=== PATIENT | male | born 1940 | race African-American/Black ===

== ENCOUNTER 2017-03-22 12:50 | Inpatient (IN) | payer MEDICARE, MEDICAID ==
[2017-03-22 13:27] LABS: #Eosinphils 0.1 thou/uL (0.0-0.7); #Lymphocytes 0.9 thou/uL (1.20-3.40); #Monocytes 0.4 thou/uL (0.11-0.59); #Neutrophils 3.6 thou/uL (1.40-6.50); %Eosinophils 1.1 % (0.0-10.0); %Lymphocytes 17.7 % (21.0-51.0); %Monocytes 8.5 % (0.0-10.0); Hematocrit 30.3 % (42.0-52.0); Mean Platelet Volume 7.2 fL (7.4-10.4); Red Blood Cell (RBC) Count 3.31 mill/uL (4.70-6.10); White Blood Cell (WBC) Count 4.9 thou/uL (4.8-10.8)
[2017-03-22 13:53] LABS: ALT (SGPT) Less than 7 U/L (8-55); AST (SGOT) 13 U/L (5-34); Alkaline Phosphatase 52 U/L (40-150); BUN (Urea Nitrogen) 12 mg/dL (8.4-25.7); Bilirubin, Total 0.5 mg/dL (0.2-1.2); Calc. Creatinine Clearance 0 mL/min (70-130); Calcium 8.6 mg/dL (7.8-10.44); Estimated GFR-MDRD 73; Globulin 4.4 g/dL (2.4-3.5); Protein, Total 7.7 g/dL (5.8-8.1)
[2017-03-22] MEDS ORDERED: Acetaminophen 500 MG TAB ONE (14:02)
[2017-03-22 14:03] LABS: Anion Gap 11 mmol/L (10-20); Carbon Dioxide 25 mmol/L (23-31); Chloride 105 mmol/L (98-107)
[2017-03-22 14:41] LABS: Bilirubin Negative (Negative); Blood, Urine Moderate (Negative); Glucose, Urine (Dipstick) Negative (Negative); Ketone, Urine 15 mg/dL (Negative); Nitrite Negative (Negative); Protein, Urine (Dipstick) 300 mg/dL (Neg-Trace)
[2017-03-22 14:46] LABS: Bacteria/HPF 1+ HPF (None Seen); Hyaline Casts/LPF 4-6 HYALINE CAST LPF (0-3 Hyaline); RBC/HPF 21-50 HPF (0-3); Squamous Epithelial 0-3 HPF (0-3)
--- NOTE | 2017-03-22 15:47 | RAD ---
FRONTAL VIEW CHEST 03/22/17 COMPARISON: 11/05/16 INDICATION: Fever. FINDINGS: No consolidation, effusion or discrete pneumothorax. Cardiomediastinal silhouette is within normal li mits of size for portable technique. IMPRESSION: Stable chest. No lobar consolidation. POS: [facility]
--- NOTE | 2017-03-22 15:55 | CT ---
CT HEAD NONCONTRAST: Date: 03/22/17 INDICATION: Altered mental status. INDICATION: Weakness, HIV. FINDINGS: There is prominence of the ventricular system with parenchyma atrophy. Mild chronic microvascular isc hemic disease is present. There is motion which distorts imaging anatomy, thus limiting assessment. N o intracranial hemorrhage, mass effect, or midline shift. IMPRESSION: No acute intracranial hemorrhage or mass effect. POS: [facility]
[2017-03-22] MEDS ORDERED: Ondansetron HCl/PF 4 MG/2 ML Vial IVP PRN (17:07)
[2017-03-22] MEDS ORDERED: cloNIDine 0.1 MG TAB PO PRN (17:07)
[2017-03-22] MEDS ORDERED: Dextrose 5% in Water 1,000 ML IV PRN (17:07)
[2017-03-22] MEDS ORDERED: Ondansetron ODT 4 MG TAB PO PRN (17:07)
[2017-03-22] MEDS ORDERED: Acetaminophen 325 MG TAB PO PRN (17:07)
[2017-03-22] MEDS ORDERED: hydrALAZINE 20 MG/ML VIAL SLOW IVP PRN (17:07)
[2017-03-22] MEDS ORDERED: Bisacodyl 5 MG TAB PO PRN (17:07)
[2017-03-22] MEDS ORDERED: HumaLOG 300 UNITS/3 ML VIAL SC PRN (17:07)
[2017-03-22 17:13] VITALS: BMI 23.0
[2017-03-22] MEDS: metFORMIN 500 MG TAB PO SCH (17:35)
[2017-03-22] MEDS: Vancomycin HCl 500 MG in Sodium Chloride 0.9% 100 ML IVPB SCH (18:09)
[2017-03-22] MEDS: Docusate 100 MG CAP PO SCH (20:00)
[2017-03-22] MEDS: Famotidine 20 MG TAB PO SCH (20:00)
[2017-03-22] MEDS: Atorvastatin Calcium 10 MG TAB PO SCH (20:00)
[2017-03-22] MEDS: Emtricitabine/Tenofovir 200-300 MG TAB PO SCH (20:00)
[2017-03-22] MEDS: Metoprolol Tartrate 25 MG TAB PO SCH (20:00)
--- NOTE | 2017-03-22 20:39 | HP ---
PRIMARY CARE PHYSICIAN: Christine Landeros M.D. INFECTIOUS DISEASE: Previously Dr. Jara at [facility]. CHIEF COMPLAINT: Altered mental status and fever. HISTORY OF PRESENT ILLNESS: This is a 76-year-old -[place] male with a known history of HIV with previous PJP pneumonia and presumptive Cryptococcus pneumonia, whose most recent CD4 count was 7 4 in 10/2016. He presents when the family brought him in for altered mental status. The family is n o longer available at the bedside and all of my history is taken from the ER physician and the chart as the patient is not able to give any of the history. Family called EMS. They reported that he was having difficulty walking and his lower lip was swelling. It is uncertain exactly how long these sy mptoms have been going on for and the patient denies any of these symptoms when I talked to him in e room. He did have a fever of 102.3 when he arrived to the emergency room though without any tachyc ardia. He is on a beta veronika. The patient knows he is in the hospital in [place], but thinks the ye ar is 3017 and it might be April but he is not certain. PAST MEDICAL HISTORY: All history taken from the chart. 1. 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 2. Diabetes mellitus type 2, on oral hypoglycemics. 3. Hypertension. 4. Hyperlipidemia. 5. Benign prostatic hyperplasia. PAST SURGICAL HISTORY: 1. Foot surgery in the distant past. 2. Left cataract removal with damage to the iris. SOCIAL HISTORY: Patient lives independently in [place], states he has a girlfriend who called the richardu isaiah. Denies alcohol, tobacco or illicit drug use, but he is a former alcoholic and tobacco user. He does receive home health services per his chart. FAMILY HISTORY: Mother with hypertension, father killed at some point in his life, but it is unclear why. ALLERGIES: No known drug allergies. CURRENT MEDICATIONS: Uncertain if the patient is on his previous medications, but his most recent me dication list in the chart shows: 1. Atripla 1 tablet daily. 2. Lipitor 10 mg daily. 3. Diflucan 200 mg daily. 4. Glimepiride 2 mg each morning before breakfast. 5. Lisinopril 20 mg daily. 6. Metoprolol 25 mg twice a day. 7. Bactrim double strength 1 tablet daily. 8. Tamsulosin 0.4 mg daily. 9. Amlodipine 5 mg daily. 10. Metformin 500 mg twice a day. REVIEW OF SYSTEMS: Unable to obtain secondary to patient's confusion, altered mental status. He den ies any symptoms while I did a full 10-point review of systems with him. PHYSICAL EXAMINATION: VITAL SIGNS: Blood pressure 132/71, pulse 69, respirations 22, O2 sat 98% on room air, temperature 1 02.3 on presentation, he has just gotten Tylenol, now it is down to 98.8. GENERAL: This is a well-developed, thin -Mauritanian male in no apparent distress. HEENT: Left pupil with distortion and not reactive. Right pupil round and reactive to light. Extra ocular movements intact. Oropharynx with some candidiasis or some thrush on the palate and anterior tonsillar pillars. His bottom lip is a little bit swollen and cracked massively. NECK: Supple, no lymphadenopathy, no thyroid nodules or enlargement, no JVD. HEART: Regular rate and rhythm, no murmurs, rubs or gallops. LUNGS: Clear to auscultation bilaterally, no wheezes, crackles or rhonchi. ABDOMEN: Soft and nontender to palpation, normoactive bowel sounds, no hepatosplenomegaly or other m asses. EXTREMITIES: No clubbing, cyanosis or edema. SKIN: Without rashes or other lesions. NEUROLOGIC: The patient has no focal neurologic deficits. Negative facial droop. He has intact str ength in bilateral lower extremities: Deep tendon reflexes are equal bilaterally. PSYCHIATRIC: Patient is alert, oriented to person, to town, does not know which hospital this is, an d is not oriented to time. LABORATORY DATA: CBC with a white blood cell count of 4.9 and low lymphocyte count of 17.7% of that 4.9. Complete metabolic panel was notable only for an albumin of 3.3. The remainder is normal. Uri nalysis does show 300 protein and also has moderate leukocyte esterase, 21-50 rbc's and greater than 50 to too numerous to count white blood cells, and 1+ bacteria. Chest x-ray: I did review the chest x-ray done in the emergency room along with the radiologist's report. There are no infiltrates or e vidence of acute cardiopulmonary process going on. CT of the brain shows no acute intracranial hemor rhage or mass effect. There was some motion distorted on the anatomy limiting. ASSESSMENT: 1. Febrile illness with possible sepsis. 2. Urinary tract infection, likely source of #1. The patient was given a dose of Rocephin in the em ergency room given his immunocompromised status, I will also give him a dose of vancomycin as well. Blood and urine cultures are pending. 3. Acquired immune deficiency syndrome with CD4 count below 200 and previous opportunistic infection s. We will resume patient's Bactrim and prophylaxis. We will consult Dr. Beltrán. 4. Thrush secondary to . We will resume patient's Diflucan that he was discharged from the [facility] hospitalization. 5. Gastrointestinal prophylaxis. The patient on Pepcid twice a daily. 6. Deep venous thrombosis prophylaxis. The patient is on sequential compression devices and TEDs. We will hold off on Lovenox as he may need a lumbar puncture. CODE STATUS: The patient is full code. He was unable to give me a next of kin or medical decision natali joe, but in previous admissions, this was listed as Kiesha Luis.
[2017-03-22] MEDS ORDERED: Vancomycin HCl 1 GM in Sodium Chloride 0.9% 250 ML 250 ML IVPB SCH (21:00)
[2017-03-22] MEDS ORDERED: Non-Formulary Item 1 EACH (Efavirenz/Emtricitab/Tenofovir [Atripla] 1 TABLET) PO SCH (21:00)
[2017-03-23] MEDS: Vancomycin HCl 500 MG in Sodium Chloride 0.9% 100 ML IVPB SCH ×2 (05:40→17:14)
[2017-03-23 05:49] LABS: #Eosinphils 0.1 thou/uL (0.0-0.7); #Lymphocytes 0.6 thou/uL (1.20-3.40); #Monocytes 0.5 thou/uL (0.11-0.59); %Eosinophils 2.6 % (0.0-10.0); %Lymphocytes 10.7 % (21.0-51.0); %Monocytes 8.8 % (0.0-10.0); Hematocrit 30.7 % (42.0-52.0); Mean Platelet Volume 7.6 fL (7.4-10.4); Red Blood Cell (RBC) Count 3.35 mill/uL (4.70-6.10); White Blood Cell (WBC) Count 5.1 thou/uL (4.8-10.8)
[2017-03-23 06:18] LABS: Anion Gap 10 mmol/L (10-20); BUN (Urea Nitrogen) 13 mg/dL (8.4-25.7); Calc. Creatinine Clearance 60 mL/min (70-130); Calcium 8.7 mg/dL (7.8-10.44); Carbon Dioxide 27 mmol/L (23-31); Chloride 105 mmol/L (98-107); Estimated GFR-MDRD 80
[2017-03-23] MEDS: Glimepiride 2 MG TAB PO SCH (08:06)
[2017-03-23] MEDS: Lisinopril 20 MG TAB PO SCH (08:06)
[2017-03-23] MEDS: Tamsulosin HCl 0.4 MG CAP PO SCH (08:08)
[2017-03-23] MEDS: Metoprolol Tartrate 25 MG TAB PO SCH ×2 (08:08→20:13)
[2017-03-23] MEDS: metFORMIN 500 MG TAB PO SCH ×2 (08:08→16:43)
[2017-03-23] MEDS: Amlodipine 5 MG TAB PO SCH (08:08)
[2017-03-23] MEDS: Docusate 100 MG CAP PO SCH ×2 (08:08→20:13)
[2017-03-23] MEDS: Famotidine 20 MG TAB PO SCH ×2 (08:08→20:13)
[2017-03-23] MEDS: cefTRIAXone\\ROCEPHIN 2 GM in Sodium Chloride 0.9% 100 ML IVPB SCH (14:28)
--- NOTE | 2017-03-23 15:28 | PDOC.PN ---
- Subjective Encounter Start Date: 03/23/17 Encounter Start Time: 09:40 Subjective: feels better, at bedside -: tolerating oral diet - Objective Resuscitation Status: Resuscitation Status FULL:Full Resuscitation MAR Reviewed: Yes Vital Signs & Weight: Vital Signs (12 hours) Temp Pulse Resp BP BP Pulse Ox 03/23/17 08:08 77 161/83 H 03/23/17 08:06 161/83 H 03/23/17 08:00 98.3 F 77 18 97 03/23/17 07:00 98.3 F 77 18 161/83 H 97 I&O: 03/22/17 03/23/17 03/24/17 06:59 06:59 06:59 Intake Total 480 Balance 480 Result Diagrams: 03/23/17 03:58 03/23/17 03:58 Additional Labs: Accuchecks 03/23/17 03/22/17 11:55 17:31 POC Glucose 84 75 Phys Exam - Physical Examination HEENT: PERRLA, moist MMs Neck: no JVD, supple Respiratory: no wheezing, no rales Cardiovascular: RRR, no significant murmur Gastrointestinal: soft, non-tender, no distention, positive bowel sounds Musculoskeletal: no edema, pulses present Neurological: non-focal, moves all 4 limbs Dx/Plan (1) 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) Code(s): B20 - HUMAN IMMUNODEFICIENCY VIRUS [HIV] DISEASE; A41.9 - SEPSIS, UNSPECIFIED ORGANISM Status: Chronic (2) HTN (hypertension) Code(s): I10 - ESSENTIAL (PRIMARY) HYPERTENSION Status: Chronic Qualifiers: Hypertension type: essential hypertension Qualified Code(s): I10 - Essential (primary) hypertension (3) Dyslipidemia Code(s): E78.5 - HYPERLIPIDEMIA, UNSPECIFIED Status: Chronic (4) Diabetes mellitus Code(s): E11.9 - TYPE 2 DIABETES MELLITUS WITHOUT COMPLICATIONS Status: Chronic Qualifiers: Diabetes mellitus type: type 2 Diabetes mellitus complication status: with unspecified complications Diabetes mellitus fci insulin use: without fci use Qualified Code(s): E11.8 - Type 2 diabetes mellitus with unspecified complications Comment: (5) Chronic anemia Code(s): D64.9 - ANEMIA, UNSPECIFIED Status: Chronic (6) Moderate protein malnutrition Code(s): E44.0 - MODERATE PROTEIN-CALORIE MALNUTRITION Status: Chronic - Plan unclear source -: is on ceftriaxone and vanc -: bactrim, diflucan, truvada and sustiva to continue for his low cd4/home med -: had temp of 99 last 24hrs, await cultures -: has been consulted * . Review of Systems - Medications/Allergies Allergies/Adverse Reactions: Allergies Allergy/AdvReac Type Severity Reaction Status Date / Time No Known Allergies Allergy Verified 03/22/17 17:11 Medications: Current Medications Acetaminophen (Tylenol) 650 mg PO Q4H PRN PRN Reason: Headache/Fever or Pain Amlodipine Besylate (Norvasc) 5 mg PO DAILY [facility] Last Admin: 03/23/17 08:08 Dose: 5 mg Atorvastatin Calcium (Lipitor) 10 mg PO HS [facility] Last Admin: 03/22/17 20:00 Dose: 10 mg Bisacodyl (Dulcolax) 10 mg PO DAILYPRN PRN PRN Reason: Constipation Clonidine (Catapres) 0.1 mg PO Q4H PRN PRN Reason: Systolic BP > 180 Dextrose/Water (Dextrose 50%) 25 gm SLOW IVP PRN PRN PRN Reason: Hypoglycemia Docusate Sodium (Colace) 100 mg PO BID [facility] Last Admin: 03/23/17 08:08 Dose: 100 mg Efavirenz (Sustiva) 600 mg PO 2100 [facility] Last Admin: 03/22/17 19:59 Dose: 600 mg Emtricitabine/Tenofovir (Truvada) 1 tab PO HS [facility] Last Admin: 03/22/17 20:00 Dose: 1 tab Famotidine (Pepcid) 20 mg PO BID [facility] Last Admin: 03/23/17 08:08 Dose: 20 mg Fluconazole (Diflucan) 200 mg PO 1800 [facility] Glimepiride (Amaryl) 2 mg PO QAM-WM [facility] Last Admin: 03/23/17 08:06 Dose: 2 mg Glucagon (Glucagon) 1 mg IM PRN PRN PRN Reason: Hypoglycemia Hydralazine HCl (Apresoline) 10 mg SLOW IVP Q4H PRN PRN Reason: Systolic BP > 180 Ceftriaxone Sodium 2 gm/ (Sodium Chloride) 100 mls @ 200 mls/hr IVPB Q24HR [facility] Last Admin: 03/23/17 14:28 Dose: 100 mls Dextrose/Water (D5w) 1,000 mls @ 0 mls/hr IV .Q0M PRN; As Directed PRN Reason: Hypoglycemia Vancomycin HCl 500 mg/ Sodium (Chloride) 100 mls @ 100 mls/hr IVPB 0600,1800 [facility] Last Admin: 03/23/17 05:40 Dose: 100 mls Insulin Human Lispro (Humalog) 0 units SC .MILD SLIDING SCALE PRN PRN Reason: Mild Correctional Scale Lisinopril (Zestril) 20 mg PO DAILY [facility] Last Admin: 03/23/17 08:06 Dose: 20 mg Metformin HCl (Glucophage) 500 mg PO BID-[facility] Last Admin: 03/23/17 08:08 Dose: 500 mg Metoprolol Tartrate (Lopressor) 25 mg PO BID [facility] Last Admin: 03/23/17 08:08 Dose: 25 mg Ondansetron HCl (Zofran Odt) 4 mg PO Q6H PRN PRN Reason: Nausea/Vomiting Ondansetron HCl (Zofran) 4 mg IVP Q6H PRN PRN Reason: Nausea/Vomiting Tamsulosin HCl (Flomax) 0.4 mg PO DAILY [facility] Last Admin: 03/23/17 08:08 Dose: 0.4 mg Trimethoprim/Sulfamethoxazole (Bactrim Ds) 1 tab PO MoWeFr@0900 [facility]
--- NOTE | 2017-03-23 15:57 | CON ---
DATE OF CONSULTATION: 03/23/2017 REASON FOR CONSULTATION: Altered mental status, HIV infection. HISTORY OF PRESENT ILLNESS: A 76-year-old who has a longstanding history of HIV infection and was ad mitted in October to this hospital with change in mental status and fever. His repeat cryptococcus anti gen then was negative, of note, the prior workup at [facility] they had not shown any positive cry pto antigen in the CSF. He CD4 was 74 and viral load was elevated more than 600,000. The patient wa s discharged on efavirenz, emtricitabine, atorvastatin, Norvasc, clonidine, metformin. He also was s tarted on Bactrim 3 times weekly for prophylaxis against pneumocystis. He was brought back this time with altered mental status. On arrival, the patient was not able to provide history. Apparently, a ccording to the family, he had some difficulty walking, some lip swelling and temperature 102.3. Ini tial findings, BP 130/70, pulse 69, respirations 22, O2 saturation 98%, and temperature 102. Neck, s upple. Regular heart rate and rhythm. Lungs were clear. Abdomen was soft. He moved all extremitie s equally. Initial labs, white cell count 4.9 and 5.1, hemoglobin 9.9, MCV 91, platelets 176, 72% ne utrophils. Chemistry: Sodium 137, creatinine 1.18. AST 13. Albumin 3.3. Urinalysis with greater than 50 wbcs. Two sets of blood cultures, no growth thus far. Currently, Mr. Disla is drowsy, but arousable. He knows he is in the hospital, denied any headaches, n o visual symptoms, has some sore throat, some odynophagia. No cough, pretty good appetite. No abdom inal pain, no genitourinary symptoms, no joint symptoms. PAST MEDICAL HISTORY: HIV infection. Currently on Atripla, but uncontrolled viral load either due t o resistance or noncompliance, type 2 diabetes, hypertension, hyperlipidemia, BPH. PAST SURGICAL HISTORY: Foot surgery and cataract removal. SOCIAL HISTORY: Had been living independently in [place], it is not clear his living situation right n ow and Adult Protective Services may have to be activated, former smoker and used to drink heavily. FAMILY HISTORY: Hypertension. ALLERGIES: None. MEDICATION LIST: In the hospital, ceftriaxone, clonidine, docusate, Colace, Diflucan, insulin, Gluco phage, Bactrim, vancomycin, Sustiva and Truvada. PHYSICAL EXAMINATION: VITAL SIGNS: T-max 99.5, blood pressure 160/80, pulse 77, respirations 18, O2 sat 97%. SKIN: No areas of skin breakdown. Peripheral IV access. No Ramirez catheter, moves all extremities e qually. Oral cavity with florid oral candidiasis. Numerous teeth in place with significant decay an d gum disease. NECK: Supple. No jugular venous distention. HEENT: Pupils are equal and reactive. LUNGS: With symmetric air entry. HEART: S1, S2, regular rate. No crackles or wheezing. ABDOMEN: Soft and not distended or tender. No ascites. No bladder distention. GENITOURINARY: No genital abnormalities. No perianal lesions. EXTREMITIES: No joint inflammatory activity, able to move extremities on command. NEUROLOGIC: Plantar responses are flexor. No clonus. No clubbing, cyanosis or edema. He knows his name and knows where he is, but replies are sluggish, follows commands with some hesitancy. LABORATORY AND X-RAY FINDINGS: The labs have been reviewed above. Brain CT did not show any acute c hanges. Chest x-ray with no infiltrates. ASSESSMENT: Advanced human immunodeficiency virus infection with either poor adherence to antiretrov iral therapy or resistance to the antiretrovirals provided, this is now associated with altered menta l status. DISCUSSION: Living situation is not clear, seems to be living by himself in an Adult Protective Serv ices may have to be activated. At this point, would recommend a spinal fluid evaluation and check HI V genotype and integrase resistance profile with the intention of transitioning him to a different an tiretroviral therapy regimen. Repeat cryptococcus antigen, histoplasma antigen in urine, his last CM V, DNA, PCR was not significantly elevated. Continue Bactrim prophylaxis. The patient will probably have to be placed in a group home since I do not think is able to care for self and will continue to deteriorate if he goes home again like the previous time.
[2017-03-23] MEDS: Fluconazole 100 MG TAB PO SCH (17:14)
[2017-03-23] MEDS: Emtricitabine/Tenofovir 200-300 MG TAB PO SCH (20:13)
[2017-03-23] MEDS: Atorvastatin Calcium 10 MG TAB PO SCH (20:13)
[2017-03-24] MEDS: Dextrose 50% Abboject 50 ML SYRINGE SLOW IVP PRN (05:27)
[2017-03-24 05:58] LABS: Vancomycin, Trough 6.7 ug/mL
[2017-03-24] MEDS ORDERED: Vancomycin HCl 1 GM in Premix Bag 1 BAG IVPB SCH (06:15)
[2017-03-24] MEDS: Vancomycin HCl 500 MG in Sodium Chloride 0.9% 100 ML IVPB SCH (07:49)
[2017-03-24] MEDS: Metoprolol Tartrate 25 MG TAB PO SCH ×2 (10:17→20:57)
[2017-03-24] MEDS: Glimepiride 2 MG TAB PO SCH (10:17)
[2017-03-24] MEDS: metFORMIN 500 MG TAB PO SCH ×2 (10:18→17:36)
[2017-03-24] MEDS: Sulfameth/Trimethoprim DS 800-160mg TAB PO SCH (10:18)
[2017-03-24] MEDS: Amlodipine 5 MG TAB PO SCH (10:18)
[2017-03-24] MEDS: Famotidine 20 MG TAB PO SCH ×2 (10:18→20:58)
[2017-03-24] MEDS: Lisinopril 20 MG TAB PO SCH (10:18)
[2017-03-24] MEDS: Tamsulosin HCl 0.4 MG CAP PO SCH (10:19)
[2017-03-24] MEDS: Docusate 100 MG CAP PO SCH ×2 (10:19→20:56)
--- NOTE | 2017-03-24 11:11 | PDOC.PN ---
- Subjective Encounter Start Date: 03/24/17 Encounter Start Time: 09:15 Subjective: awake, responds well to verbal questions -: was confused last night and had 1:1 sitter -: no sob or weakness in specific extremty - Objective Resuscitation Status: Resuscitation Status FULL:Full Resuscitation MAR Reviewed: Yes Vital Signs & Weight: Vital Signs (12 hours) Temp Pulse Resp BP BP Pulse Ox 03/24/17 10:18 65 145/67 H 03/24/17 08:00 98.0 F 65 18 145/67 H 100 03/24/17 05:51 97.8 F 70 16 122/64 03/24/17 00:19 99.1 F 74 20 125/66 I&O: 03/23/17 03/24/17 03/25/17 06:59 06:59 06:59 Intake Total 1960 Balance 1960 Result Diagrams: 03/23/17 03:58 03/23/17 03:58 Additional Labs: Accuchecks 03/24/17 03/24/17 03/23/17 05:59 05:05 20:25 POC Glucose 169 H 66 L 112 H 03/23/17 03/23/17 03/23/17 16:36 11:55 05:36 POC Glucose 80 84 80 03/22/17 19:50 POC Glucose 95 Phys Exam - Physical Examination HEENT: PERRLA, moist MMs Neck: no JVD, supple Respiratory: no wheezing, no rales Cardiovascular: RRR, no significant murmur Gastrointestinal: soft, non-tender, no distention, positive bowel sounds Musculoskeletal: no edema, pulses present Neurological: non-focal, moves all 4 limbs Dx/Plan (1) 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) Code(s): B20 - HUMAN IMMUNODEFICIENCY VIRUS [HIV] DISEASE; A41.9 - SEPSIS, UNSPECIFIED ORGANISM Status: Chronic (2) HTN (hypertension) Code(s): I10 - ESSENTIAL (PRIMARY) HYPERTENSION Status: Chronic Qualifiers: Hypertension type: essential hypertension Qualified Code(s): I10 - Essential (primary) hypertension (3) Dyslipidemia Code(s): E78.5 - HYPERLIPIDEMIA, UNSPECIFIED Status: Chronic (4) Diabetes mellitus Code(s): E11.9 - TYPE 2 DIABETES MELLITUS WITHOUT COMPLICATIONS Status: Chronic Qualifiers: Diabetes mellitus type: type 2 Diabetes mellitus complication status: with unspecified complications Diabetes mellitus oil heaterman insulin use: without oil heaterman use Qualified Code(s): E11.8 - Type 2 diabetes mellitus with unspecified complications Comment: (5) Chronic anemia Code(s): D64.9 - ANEMIA, UNSPECIFIED Status: Chronic (6) Moderate protein malnutrition Code(s): E44.0 - MODERATE PROTEIN-CALORIE MALNUTRITION Status: Chronic - Plan is going for lumbar puncture by IR -: labs for HIV genotype, integrase resistance, cmv pcr, histo/crypto ag were -: sent yesterday. Had t.max of 99 last 24hrs -: is on ceft and vanc -: on Truvada and sustiva for HIV with fluconazole and bactrim 3/wk * . CM for help with placement. Has dementia with sun downing, not sure he is compliant with meds. Review of Systems - Medications/Allergies Allergies/Adverse Reactions: Allergies Allergy/AdvReac Type Severity Reaction Status Date / Time No Known Allergies Allergy Verified 03/22/17 17:11 Medications: Current Medications Acetaminophen (Tylenol) 650 mg PO Q4H PRN PRN Reason: Headache/Fever or Pain Amlodipine Besylate (Norvasc) 5 mg PO DAILY [facility] Last Admin: 03/24/17 10:18 Dose: 5 mg Atorvastatin Calcium (Lipitor) 10 mg PO HS [facility] Last Admin: 03/23/17 20:13 Dose: 10 mg Bisacodyl (Dulcolax) 10 mg PO DAILYPRN PRN PRN Reason: Constipation Clonidine (Catapres) 0.1 mg PO Q4H PRN PRN Reason: Systolic BP > 180 Dextrose/Water (Dextrose 50%) 25 gm SLOW IVP PRN PRN PRN Reason: Hypoglycemia Last Admin: 03/24/17 05:27 Dose: 25 gm Docusate Sodium (Colace) 100 mg PO BID [facility] Last Admin: 03/24/17 10:19 Dose: 100 mg Efavirenz (Sustiva) 600 mg PO 2100 [facility] Last Admin: 03/23/17 20:14 Dose: 600 mg Emtricitabine/Tenofovir (Truvada) 1 tab PO HS [facility] Last Admin: 03/23/17 20:13 Dose: 1 tab Famotidine (Pepcid) 20 mg PO BID [facility] Last Admin: 03/24/17 10:18 Dose: 20 mg Fluconazole (Diflucan) 200 mg PO 1800 [facility] Last Admin: 03/23/17 17:14 Dose: 200 mg Glimepiride (Amaryl) 2 mg PO QAM-[facility] Last Admin: 03/24/17 10:17 Dose: 2 mg Glucagon (Glucagon) 1 mg IM PRN PRN PRN Reason: Hypoglycemia Hydralazine HCl (Apresoline) 10 mg SLOW IVP Q4H PRN PRN Reason: Systolic BP > 180 Ceftriaxone Sodium 2 gm/ (Sodium Chloride) 100 mls @ 200 mls/hr IVPB Q24HR [facility] Last Admin: 03/23/17 14:28 Dose: 100 mls Dextrose/Water (D5w) 1,000 mls @ 0 mls/hr IV .Q0M PRN; As Directed PRN Reason: Hypoglycemia Vancomycin HCl 1 gm/ Device 200 mls @ 200 mls/hr IVPB 0600,1800 [facility] Insulin Human Lispro (Humalog) 0 units SC .MILD SLIDING SCALE PRN PRN Reason: Mild Correctional Scale Lisinopril (Zestril) 20 mg PO DAILY [facility] Last Admin: 03/24/17 10:18 Dose: 20 mg Metformin HCl (Glucophage) 500 mg PO BID-[facility] Last Admin: 03/24/17 10:18 Dose: 500 mg Metoprolol Tartrate (Lopressor) 25 mg PO BID [facility] Last Admin: 03/24/17 10:17 Dose: 25 mg Ondansetron HCl (Zofran Odt) 4 mg PO Q6H PRN PRN Reason: Nausea/Vomiting Ondansetron HCl (Zofran) 4 mg IVP Q6H PRN PRN Reason: Nausea/Vomiting Tamsulosin HCl (Flomax) 0.4 mg PO DAILY [facility] Last Admin: 03/24/17 10:19 Dose: 0.4 mg Trimethoprim/Sulfamethoxazole (Bactrim Ds) 1 tab PO MoWeFr@0900 [facility] Last Admin: 03/24/17 10:18 Dose: 1 tab
--- NOTE | 2017-03-24 12:34 | RAD ---
LUMBAR PUNCTURE WITH FLUOROSCOPY GUIDANCE: 03/24/2017 HISTORY: A 76-year-old male with a history of AIDS, altered mental status, and a history of Cryptococcal menin gitis. COMPARISON: None. FINDINGS: Informed consent was obtained prior to the procedure. The patient was placed on the fluoroscopic table in the oblique prone position, and the skin overlyin g the lumbar spine was prepped and draped in the normal sterile fashion. At the L2-L3 level, the skin was anesthetized with 1% buffered Lidocaine. With intermittent fluorosc opic guidance, a 22 gauge spinal needle was advanced into the thecal sac, and removal of the stylet y ielded clear cerebrospinal fluid. Subsequently, opening pressure was measured at 8-9 cm of water. T hen, a total of 14-15 mL of clear CSF was collected and sent to the laboratory for assessment. The p atient tolerated the procedure well. EXPOSURE DATA: Fluoroscopic time 2.1 minutes with 360.4 mGy per m2. IMPRESSION: Successful lumbar puncture with fluoroscopic guidance. Opening pressure is 8-9 cm of water. POS: [facility]
[2017-03-24] MEDS: cefTRIAXone\\ROCEPHIN 2 GM in Sodium Chloride 0.9% 100 ML IVPB SCH (15:59)
[2017-03-24] MEDS: Fluconazole 100 MG TAB PO SCH (17:36)
[2017-03-24] MEDS: Vancomycin HCl 1 GM in Premix Bag 1 BAG IVPB SCH (17:37)
--- NOTE | 2017-03-24 18:57 | PRG ---
DATE OF SERVICE: 03/24/2017 Mr. Disla is very awake and alert. He is eating his dinner and he has a friend in the room with him an d reportedly the patient stays by himself at home and does not have as much help as he used to in the past. Apparently Dr. Landeros has not signed the document that allows for home health aide to help h im out. He needs help in buying groceries and he uses a walker for locomotion. It is not clear why he developed the abnormalities that were described on admission. Right now he denies any headaches. His throat is much better. He is able to swallow. No respiratory symptoms. No abdominal pain. No diarrhea. Voiding without difficulty. His white cell count is 5.1, hemoglobin 10, platelets 162. The CSF showed 0 WBCs, protein 50, glucos e 53. His Cryptococcus antigen was negative. We have pending genotype and integrase resistance test in preparation for transition to a different regimen. ASSESSMENT AND DISCUSSION: Advanced human immunodeficiency virus infection with poor adherence to an tiretroviral therapy and questionable living conditions and inability to care for self. We will wait on the other opportunistic infection screening and repeat CD4 viral load and start him on Kaletra or Isentress plus Truvada.
[2017-03-24] MEDS: Raltegravir Potassium 400 MG TAB PO SCH (20:57)
[2017-03-24] MEDS: Atorvastatin Calcium 10 MG TAB PO SCH (20:57)
[2017-03-24] MEDS: Lopinavir/Ritonavir 200-50mg TAB PO SCH (20:58)
[2017-03-24] MEDS: Cefepime 2 GM, Syringe 2.5 ML in Sterile Water 10 ML SLOW IVP SCH (20:58)
[2017-03-25] MEDS: Vancomycin HCl 1 GM in Premix Bag 1 BAG IVPB SCH ×2 (05:08→18:13)
[2017-03-25] MEDS: Cefepime 2 GM, Syringe 2.5 ML in Sterile Water 10 ML SLOW IVP SCH ×3 (05:08→22:03)
[2017-03-25] MEDS: Famotidine 20 MG TAB PO SCH ×2 (08:57→19:51)
[2017-03-25] MEDS: Docusate 100 MG CAP PO SCH ×2 (08:57→19:52)
[2017-03-25] MEDS: Amlodipine 5 MG TAB PO SCH (08:57)
[2017-03-25] MEDS: metFORMIN 500 MG TAB PO SCH (08:57)
[2017-03-25] MEDS: Tamsulosin HCl 0.4 MG CAP PO SCH (08:58)
[2017-03-25] MEDS: Raltegravir Potassium 400 MG TAB PO SCH ×2 (08:58→19:51)
[2017-03-25] MEDS: Lopinavir/Ritonavir 200-50mg TAB PO SCH ×2 (08:58→19:51)
[2017-03-25] MEDS: Glimepiride 2 MG TAB PO SCH (08:58)
[2017-03-25] MEDS: Metoprolol Tartrate 25 MG TAB PO SCH ×2 (08:58→19:51)
[2017-03-25] MEDS: Lisinopril 20 MG TAB PO SCH (08:58)
--- NOTE | 2017-03-25 16:22 | PDOC.PN ---
- Subjective Encounter Start Date: 03/25/17 Encounter Start Time: 15:30 Patient seen and examined. No new complaints. No overnight events. Mentation improving. - Objective Resuscitation Status: Resuscitation Status FULL:Full Resuscitation MAR Reviewed: Yes Vital Signs & Weight: Vital Signs (12 hours) Temp Pulse Resp BP BP Pulse Ox 03/25/17 11:43 97.8 F 68 14 132/77 100 03/25/17 08:57 93 03/25/17 08:00 97.7 F 93 16 144/75 H 100 03/25/17 05:29 114/72 03/25/17 04:53 98.9 F 92 20 90/44 L 97 I&O: 03/24/17 03/25/17 03/26/17 06:59 06:59 06:59 Intake Total 1960 1140 Output Total 600 Balance 1960 540 Result Diagrams: 03/23/17 03:58 03/23/17 03:58 Additional Labs: Accuchecks 03/25/17 03/24/17 04:39 16:35 POC Glucose 62 L 79 Phys Exam - Physical Examination Constitutional: NAD Respiratory: no wheezing, no rhonchi Cardiovascular: RRR, no rub Gastrointestinal: soft, non-tender, positive bowel sounds Musculoskeletal: no edema Neurological: non-focal, moves all 4 limbs Psychiatric: normal affect Deviation from normal: Alert and awake Dx/Plan - Plan DVT proph w/SCDs IMPRESSION: 1. Toxic Metabolic Encephalopathy - improving 2. Sepsis with acute organ dysfunction associated with HIV - Etio? s/p LP 3. UTI 4. DM2 5. HTN/HLD/BPH/Chronic Anemia/CKD 2 PLAN: * ID following * Await test results * Cont Atbx * AM labs * Ambulate * On Cefepime * On Bactrim/Fluconazole * Cont other meds as below Review of Systems - Review of Systems Respiratory: negative: Cough, Dry, Shortness of Breath, Hemoptysis, SOB with Excertion, Pleuritic Pain, Sputum, Wheezing Cardiovascular: negative: Chest Pain, Palpitations, Orthopnea, Paroxysmal Noc. Dyspnea, Edema, Light Headedness - Medications/Allergies Allergies/Adverse Reactions: Allergies Allergy/AdvReac Type Severity Reaction Status Date / Time No Known Allergies Allergy Verified 03/22/17 17:11 Medications: Current Medications Acetaminophen (Tylenol) 650 mg PO Q4H PRN PRN Reason: Headache/Fever or Pain Amlodipine Besylate (Norvasc) 5 mg PO DAILY [facility] Last Admin: 03/25/17 08:57 Dose: 5 mg Atorvastatin Calcium (Lipitor) 10 mg PO HS [facility] Last Admin: 03/24/17 20:57 Dose: 10 mg Bisacodyl (Dulcolax) 10 mg PO DAILYPRN PRN PRN Reason: Constipation Clonidine (Catapres) 0.1 mg PO Q4H PRN PRN Reason: Systolic BP > 180 Dextrose/Water (Dextrose 50%) 25 gm SLOW IVP PRN PRN PRN Reason: Hypoglycemia Last Admin: 03/24/17 05:27 Dose: 25 gm Docusate Sodium (Colace) 100 mg PO BID [facility] Last Admin: 03/25/17 08:57 Dose: 100 mg Famotidine (Pepcid) 20 mg PO BID [facility] Last Admin: 03/25/17 08:57 Dose: 20 mg Fluconazole (Diflucan) 200 mg PO 1800 [facility] Last Admin: 03/24/17 17:36 Dose: 200 mg Glimepiride (Amaryl) 2 mg PO QAM-WM [facility] Last Admin: 03/25/17 08:58 Dose: 2 mg Glucagon (Glucagon) 1 mg IM PRN PRN PRN Reason: Hypoglycemia Hydralazine HCl (Apresoline) 10 mg SLOW IVP Q4H PRN PRN Reason: Systolic BP > 180 Dextrose/Water (D5w) 1,000 mls @ 0 mls/hr IV .Q0M PRN; As Directed PRN Reason: Hypoglycemia Vancomycin HCl 1 gm/ Device 200 mls @ 200 mls/hr IVPB 0600,1800 [facility] Last Admin: 03/25/17 05:08 Dose: 200 mls Cefepime HCl 2 gm/ Syringe 2.5 (ml/ Sterile Water) 12.5 mls @ 150 mls/hr SLOW IVP Q8HR [facility] Last Admin: 03/25/17 14:02 Dose: 12.5 mls Insulin Human Lispro (Humalog) 0 units SC .MILD SLIDING SCALE PRN PRN Reason: Mild Correctional Scale Lisinopril (Zestril) 20 mg PO DAILY [facility] Last Admin: 03/25/17 08:58 Dose: 20 mg Lopinavir/Ritonavir (Kaletra) 2 tab PO BID [facility] Last Admin: 12/12/17 08:58 Dose: 2 tab Metformin HCl (Glucophage) 500 mg PO BID-WM [facility] Last Admin: 03/25/17 08:57 Dose: 500 mg Metoprolol Tartrate (Lopressor) 25 mg PO BID [facility] Last Admin: 03/25/17 08:58 Dose: 25 mg Ondansetron HCl (Zofran Odt) 4 mg PO Q6H PRN PRN Reason: Nausea/Vomiting Ondansetron HCl (Zofran) 4 mg IVP Q6H PRN PRN Reason: Nausea/Vomiting Raltegravir (Isentress) 400 mg PO BID [facility] Last Admin: 03/25/17 08:58 Dose: 400 mg Tamsulosin HCl (Flomax) 0.4 mg PO DAILY [facility] Last Admin: 03/25/17 08:58 Dose: 0.4 mg Trimethoprim/Sulfamethoxazole (Bactrim Ds) 1 tab PO MoWeFr@0900 [facility] Last Admin: 03/24/17 10:18 Dose: 1 tab
[2017-03-25] MEDS: Fluconazole 100 MG TAB PO SCH (18:14)
[2017-03-25] MEDS: Atorvastatin Calcium 10 MG TAB PO SCH (19:52)
[2017-03-26] MEDS: Cefepime 2 GM, Syringe 2.5 ML in Sterile Water 10 ML SLOW IVP SCH ×3 (06:13→22:03)
[2017-03-26 06:22] LABS: #Eosinphils 0.1 thou/uL (0.0-0.7); #Lymphocytes 0.6 thou/uL (1.20-3.40); #Monocytes 0.4 thou/uL (0.11-0.59); #Neutrophils 4.4 thou/uL (1.40-6.50); %Eosinophils 2.6 % (0.0-10.0); %Lymphocytes 10.1 % (21.0-51.0); %Monocytes 7.1 % (0.0-10.0); Hematocrit 29.3 % (42.0-52.0); Mean Platelet Volume 7.3 fL (7.4-10.4); Red Blood Cell (RBC) Count 3.24 mill/uL (4.70-6.10); White Blood Cell (WBC) Count 5.4 thou/uL (4.8-10.8)
[2017-03-26 06:25] LABS: Vancomycin, Trough 22.6 ug/mL
[2017-03-26 06:27] LABS: Anion Gap 10 mmol/L (10-20); BUN (Urea Nitrogen) 16 mg/dL (8.4-25.7); BUN/Creatinine Ratio 11.76; Calc. Creatinine Clearance 48 mL/min (70-130); Carbon Dioxide 24 mmol/L (23-31); Chloride 104 mmol/L (98-107); Estimated GFR-MDRD 62; Magnesium 1.8 mg/dL (1.6-2.6)
[2017-03-26] MEDS ORDERED: Vancomycin HCl 750 MG in Sodium Chloride 0.9% 250 ML 250 ML IVPB SCH ×4 (06:45)
[2017-03-26] MEDS: Vancomycin HCl 1 GM in Premix Bag 1 BAG IVPB SCH (06:51)
[2017-03-26] MEDS: Famotidine 20 MG TAB PO SCH ×2 (09:31→20:52)
[2017-03-26] MEDS: Lisinopril 20 MG TAB PO SCH (09:35)
[2017-03-26] MEDS: Amlodipine 5 MG TAB PO SCH (09:35)
[2017-03-26] MEDS: Metoprolol Tartrate 25 MG TAB PO SCH ×2 (09:35→20:36)
[2017-03-26] MEDS: Tamsulosin HCl 0.4 MG CAP PO SCH (09:36)
[2017-03-26] MEDS: Raltegravir Potassium 400 MG TAB PO SCH ×2 (09:36→20:53)
[2017-03-26] MEDS: Docusate 100 MG CAP PO SCH ×2 (09:36→20:52)
[2017-03-26] MEDS: Lopinavir/Ritonavir 200-50mg TAB PO SCH ×2 (09:37→20:52)
[2017-03-26] MEDS: Sulfameth/Trimethoprim DS 800-160mg TAB PO SCH (09:37)
[2017-03-26] MEDS: Dextrose 50% Abboject 50 ML SYRINGE SLOW IVP PRN ×2 (13:11→20:04)
[2017-03-26 13:27] LABS: Absolute CD4 44 /uL (359-1519); Lymphocytes/Gated Cell Count 0.4 x10E3/uL (0.7-3.1)
[2017-03-26] MEDS: Fluconazole 100 MG TAB PO SCH (18:13)
[2017-03-26] MEDS: Vancomycin HCl 750 MG in Sodium Chloride 0.9% 250 ML 250 ML IVPB SCH (20:43)
[2017-03-26] MEDS: Atorvastatin Calcium 10 MG TAB PO SCH (20:52)
--- NOTE | 2017-03-26 23:50 | PDOC.PN ---
- Subjective Encounter Start Date: 03/26/17 Encounter Start Time: 18:00 Patient seen and examined. Intermittent confusion +. No overnight events - Objective Resuscitation Status: Resuscitation Status FULL:Full Resuscitation MAR Reviewed: Yes Vital Signs & Weight: Vital Signs (12 hours) Temp Pulse Resp BP Pulse Ox 03/26/17 20:00 98.1 F 86 18 118/64 94 L I&O: 03/25/17 03/26/17 03/27/17 06:59 06:59 06:59 Intake Total 1140 560 700 Output Total 600 Balance 540 560 700 Result Diagrams: 03/26/17 05:33 03/27/17 03:46 Additional Labs: Accuchecks 03/26/17 03/26/17 03/26/17 19:50 17:34 14:38 POC Glucose 56 L* 76 120 H 03/26/17 03/26/17 03/26/17 13:08 10:57 04:18 POC Glucose 61 L 62 L 75 Phys Exam - Physical Examination Constitutional: NAD Respiratory: no wheezing, no rhonchi Cardiovascular: RRR, no rub Gastrointestinal: soft, non-tender, positive bowel sounds Dx/Plan - Plan DVT proph w/SCDs IMPRESSION: 1. Toxic Metabolic Encephalopathy - improving 2. Sepsis with acute organ dysfunction associated with HIV - Etio? s/p LP 3. UTI 4. DM2 with hypoglycemia 5. HTN/HLD/BPH/Chronic Anemia/CKD 2 PLAN: * ID following * Cont Atbx * On Cefepime/Vanc * On Bactrim/Fluconazole * Cont other meds as below * Accepted by Rehab * Add IVF due to hypoglycemia Review of Systems - Review of Systems Other: Cannot obtain due to current mentation - Medications/Allergies Allergies/Adverse Reactions: Allergies Allergy/AdvReac Type Severity Reaction Status Date / Time No Known Allergies Allergy Verified 03/22/17 17:11 Medications: Current Medications Acetaminophen (Tylenol) 650 mg PO Q4H PRN PRN Reason: Headache/Fever or Pain Amlodipine Besylate (Norvasc) 5 mg PO DAILY [facility] Last Admin: 03/26/17 09:35 Dose: 5 mg Atorvastatin Calcium (Lipitor) 10 mg PO HS [facility] Last Admin: 03/26/17 20:52 Dose: Not Given Bisacodyl (Dulcolax) 10 mg PO DAILYPRN PRN PRN Reason: Constipation Clonidine (Catapres) 0.1 mg PO Q4H PRN PRN Reason: Systolic BP > 180 Dextrose/Water (Dextrose 50%) 25 gm SLOW IVP PRN PRN PRN Reason: Hypoglycemia Last Admin: 03/26/17 20:04 Dose: 25 gm Docusate Sodium (Colace) 100 mg PO BID [facility] Last Admin: 03/26/17 20:52 Dose: Not Given Famotidine (Pepcid) 20 mg PO BID [facility] Last Admin: 03/26/17 20:52 Dose: Not Given Fluconazole (Diflucan) 200 mg PO 1800 [facility] Last Admin: 03/26/17 18:13 Dose: 200 mg Glucagon (Glucagon) 1 mg IM PRN PRN PRN Reason: Hypoglycemia Hydralazine HCl (Apresoline) 10 mg SLOW IVP Q4H PRN PRN Reason: Systolic BP > 180 Dextrose/Water (D5w) 1,000 mls @ 0 mls/hr IV .Q0M PRN; As Directed PRN Reason: Hypoglycemia Cefepime HCl 2 gm/ Syringe 2.5 (ml/ Sterile Water) 12.5 mls @ 150 mls/hr SLOW IVP Q8HR [facility] Last Admin: 03/26/17 22:03 Dose: 12.5 mls Vancomycin HCl 750 mg/ Sodium (Chloride) 250 mls @ 250 mls/hr IVPB 0600,1800 [facility] Last Admin: 03/26/17 20:43 Dose: 250 mls Dextrose/Sodium Chloride (D5 1/2 Ns) 1,000 mls @ 75 mls/hr IV .[id number] [facility] Insulin Human Lispro (Humalog) 0 units SC .MILD SLIDING SCALE PRN PRN Reason: Mild Correctional Scale Lisinopril (Zestril) 20 mg PO DAILY [facility] Last Admin: 03/26/17 09:35 Dose: 20 mg Lopinavir/Ritonavir (Kaletra) 2 tab PO BID [facility] Last Admin: 03/26/17 20:52 Dose: Not Given Metoprolol Tartrate (Lopressor) 25 mg PO BID [facility] Last Admin: 03/26/17 20:36 Dose: Not Given Ondansetron HCl (Zofran Odt) 4 mg PO Q6H PRN PRN Reason: Nausea/Vomiting Ondansetron HCl (Zofran) 4 mg IVP Q6H PRN PRN Reason: Nausea/Vomiting Raltegravir (Isentress) 400 mg PO BID [facility] Last Admin: 03/26/17 20:53 Dose: Not Given Tamsulosin HCl (Flomax) 0.4 mg PO DAILY [facility] Last Admin: 03/26/17 09:36 Dose: 0.4 mg Trimethoprim/Sulfamethoxazole (Bactrim Ds) 1 tab PO MoWeFr@0900 [facility] Last Admin: 03/26/17 09:37 Dose: 1 tab
[2017-03-27] MEDS: Dextrose 5 %-0.45 % NaCl 1,000 ML IV SCH ×2 (00:12→12:58)
[2017-03-27] MEDS: Dextrose 50% Abboject 50 ML SYRINGE SLOW IVP PRN ×2 (00:38→07:25)
[2017-03-27 05:02] LABS: Anion Gap 7 mmol/L (10-20); BUN (Urea Nitrogen) 15 mg/dL (8.4-25.7); Calc. Creatinine Clearance 50 mL/min (70-130); Calcium 8.7 mg/dL (7.8-10.44); Carbon Dioxide 22 mmol/L (23-31); Chloride 108 mmol/L (98-107); Estimated GFR-MDRD 65
[2017-03-27] MEDS: Cefepime 2 GM, Syringe 2.5 ML in Sterile Water 10 ML SLOW IVP SCH ×2 (06:00→16:02)
[2017-03-27] MEDS: Vancomycin HCl 750 MG in Sodium Chloride 0.9% 250 ML 250 ML IVPB SCH (06:01)
[2017-03-27] MEDS: Raltegravir Potassium 400 MG TAB PO SCH ×2 (09:24→20:18)
[2017-03-27] MEDS: Famotidine 20 MG TAB PO SCH ×2 (09:24→20:19)
[2017-03-27] MEDS: Lisinopril 20 MG TAB PO SCH (09:24)
[2017-03-27] MEDS: Docusate 100 MG CAP PO SCH ×2 (09:24→20:18)
[2017-03-27] MEDS: Tamsulosin HCl 0.4 MG CAP PO SCH (09:24)
[2017-03-27] MEDS: Lopinavir/Ritonavir 200-50mg TAB PO SCH ×2 (09:24→20:18)
[2017-03-27] MEDS: Metoprolol Tartrate 25 MG TAB PO SCH ×2 (09:24→20:20)
[2017-03-27] MEDS: Amlodipine 5 MG TAB PO SCH (09:24)
--- NOTE | 2017-03-27 12:36 | PDOC.PN ---
- Subjective Encounter Start Date: 03/27/17 Encounter Start Time: 09:00 Subjective: awake, responds well to verbal stimuli -: no sob or nausea - Objective Resuscitation Status: Resuscitation Status FULL:Full Resuscitation MAR Reviewed: Yes Vital Signs & Weight: Vital Signs (12 hours) Temp Pulse Resp BP BP Pulse Ox 03/27/17 09:24 84 113/54 L 03/27/17 08:00 97.6 F 84 16 113/54 L 100 I&O: 03/26/17 03/27/17 03/28/17 06:59 06:59 06:59 Intake Total 560 1835 120 Balance 560 1835 120 Result Diagrams: 03/26/17 05:33 03/27/17 03:46 Additional Labs: Accuchecks 03/27/17 03/27/17 03/27/17 07:21 05:14 02:13 POC Glucose 42 L* 74 138 H 03/27/17 03/26/17 03/26/17 00:29 20:42 19:50 POC Glucose 53 L* 168 H 56 L* 03/26/17 03/26/17 03/26/17 17:34 14:38 13:08 POC Glucose 76 120 H 61 L Phys Exam - Physical Examination HEENT: PERRLA, moist MMs Neck: no JVD, supple Respiratory: no wheezing, no rales Cardiovascular: RRR, no significant murmur Gastrointestinal: soft, no distention, positive bowel sounds Musculoskeletal: no edema, pulses present Neurological: non-focal, moves all 4 limbs Dx/Plan (1) 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) Code(s): B20 - HUMAN IMMUNODEFICIENCY VIRUS [HIV] DISEASE; A41.9 - SEPSIS, UNSPECIFIED ORGANISM Status: Chronic (2) HTN (hypertension) Code(s): I10 - ESSENTIAL (PRIMARY) HYPERTENSION Status: Chronic Qualifiers: Hypertension type: essential hypertension Qualified Code(s): I10 - Essential (primary) hypertension (3) Dyslipidemia Code(s): E78.5 - HYPERLIPIDEMIA, UNSPECIFIED Status: Chronic (4) Diabetes mellitus Code(s): E11.9 - TYPE 2 DIABETES MELLITUS WITHOUT COMPLICATIONS Status: Chronic Qualifiers: Diabetes mellitus type: type 2 Diabetes mellitus complication status: with unspecified complications Diabetes mellitus rat exterminator insulin use: without rat exterminator use Qualified Code(s): E11.8 - Type 2 diabetes mellitus with unspecified complications Comment: (5) Chronic anemia Code(s): D64.9 - ANEMIA, UNSPECIFIED Status: Chronic (6) Moderate protein malnutrition Code(s): E44.0 - MODERATE PROTEIN-CALORIE MALNUTRITION Status: Chronic - Plan is on cefepime and vanc -: on d51/2ns, has persistent hypoglycemia -: kaletra and isenstress -: CD4 is 44, on bactrim prophylaxis -: will need rat exterminator care * . Review of Systems - Medications/Allergies Allergies/Adverse Reactions: Allergies Allergy/AdvReac Type Severity Reaction Status Date / Time No Known Allergies Allergy Verified 03/22/17 17:11 Medications: Current Medications Acetaminophen (Tylenol) 650 mg PO Q4H PRN PRN Reason: Headache/Fever or Pain Amlodipine Besylate (Norvasc) 5 mg PO DAILY [facility] Last Admin: 03/27/17 09:24 Dose: 5 mg Atorvastatin Calcium (Lipitor) 10 mg PO HS [facility] Last Admin: 03/26/17 20:52 Dose: Not Given Bisacodyl (Dulcolax) 10 mg PO DAILYPRN PRN PRN Reason: Constipation Clonidine (Catapres) 0.1 mg PO Q4H PRN PRN Reason: Systolic BP > 180 Dextrose/Water (Dextrose 50%) 25 gm SLOW IVP PRN PRN PRN Reason: Hypoglycemia Last Admin: 03/27/17 07:25 Dose: 25 gm Docusate Sodium (Colace) 100 mg PO BID [facility] Last Admin: 03/27/17 09:24 Dose: 100 mg Famotidine (Pepcid) 20 mg PO BID [facility] Last Admin: 03/27/17 09:24 Dose: 20 mg Fluconazole (Diflucan) 200 mg PO 1800 [facility] Last Admin: 03/26/17 18:13 Dose: 200 mg Glucagon (Glucagon) 1 mg IM PRN PRN PRN Reason: Hypoglycemia Hydralazine HCl (Apresoline) 10 mg SLOW IVP Q4H PRN PRN Reason: Systolic BP > 180 Dextrose/Water (D5w) 1,000 mls @ 0 mls/hr IV .Q0M PRN; As Directed PRN Reason: Hypoglycemia Cefepime HCl 2 gm/ Syringe 2.5 (ml/ Sterile Water) 12.5 mls @ 150 mls/hr SLOW IVP Q8HR [facility] Last Admin: 03/27/17 06:00 Dose: 12.5 mls Vancomycin HCl 750 mg/ Sodium (Chloride) 250 mls @ 250 mls/hr IVPB 0600,1800 [facility] Last Admin: 03/27/17 06:01 Dose: 250 mls Dextrose/Sodium Chloride (D5 1/2 Ns) 1,000 mls @ 75 mls/hr IV .[id number] [facility] Last Admin: 03/27/17 00:12 Dose: 1,000 mls Insulin Human Lispro (Humalog) 0 units SC .MILD SLIDING SCALE PRN PRN Reason: Mild Correctional Scale Lisinopril (Zestril) 20 mg PO DAILY [facility] Last Admin: 03/27/17 09:24 Dose: 20 mg Lopinavir/Ritonavir (Kaletra) 2 tab PO BID [facility] Last Admin: 03/27/17 09:24 Dose: 2 tab Metoprolol Tartrate (Lopressor) 25 mg PO BID [facility] Last Admin: 03/27/17 09:24 Dose: 25 mg Ondansetron HCl (Zofran Odt) 4 mg PO Q6H PRN PRN Reason: Nausea/Vomiting Ondansetron HCl (Zofran) 4 mg IVP Q6H PRN PRN Reason: Nausea/Vomiting Raltegravir (Isentress) 400 mg PO BID [facility] Last Admin: 03/27/17 09:24 Dose: 400 mg Sodium Chloride (Flush - Normal Saline) 10 ml IVF Q12HR [facility] Last Admin: 03/27/17 09:25 Dose: 10 ml Sodium Chloride (Flush - Normal Saline) 10 ml IVF PRN PRN PRN Reason: Saline Flush Tamsulosin HCl (Flomax) 0.4 mg PO DAILY [facility] Last Admin: 03/27/17 09:24 Dose: 0.4 mg Trimethoprim/Sulfamethoxazole (Bactrim Ds) 1 tab PO MoWeFr@0900 [facility] Last Admin: 03/26/17 09:37 Dose: 1 tab
[2017-03-27] MEDS ORDERED: ISOVUE-370 76%-LOCM 1 ML ONE (14:03)
--- NOTE | 2017-03-27 15:53 | CT ---
CT ABDOMEN AND PELVIS WITHOUT AND WITH CONTRAST: COMPARISON: 09/02/11. HISTORY: Sepsis or upper abdominal pain. Possible pancreatitis. The patient is HIV positive. TECHNIQUE: Multiple contiguous axial images were obtained in a CT of the abdomen and pelvis without and with IV contrast. Coronal reformats were performed. P.o. contrast was administered. FINDINGS: There is a hypodense mass involving the posterior aspect of the left kidney which contains laminated calcifications. This mass may have slightly increased in size compared to the prior examination but is grossly stable. There is stranding in the perinephric soft tissues with calcifications adjacent t o this mass. This could potentially represent postsurgical or ablative therapy changes. There is a 1.5 cm hypodensity in the liver which likely represents a cyst on the inferior edge of the liver. Th e gallbladder, adrenal glands, spleen, and pancreas are unremarkable. There is a 2.4 cm cyst emanati ng from the lower pole of the right kidney. No free air, free fluid, or stranding changes are seen in the abdomen or pelvis. There are mildly en larged lymph nodes along the lesser curvature of the stomach measuring up to 1.2 cm in size. No retr operitoneal adenopathy is seen. The large and small bowel are unremarkable. The appendix is unremarkable. Degenerative changes are seen in the spine. The visualized inferior thorax and abdominal wall soft t issues are unremarkable. IMPRESSION: 1. Complex left renal mass does not demonstrate significant enhancement and may represent postsurgic al or post-ablative changes. 2. Right renal cyst. 3. Hepatic cyst. 4. No evidence of acute pancreatitis. 5. Mild enlarged lymph nodes along the lesser curvature of the stomach are nonspecific. POS: [facility]
--- NOTE | 2017-03-27 16:54 | PRG ---
DATE OF SERVICE: 03/27/2017 SUBJECTIVE: The patient does not have any complaints. No headaches, no abdominal pain, no dyspnea, no cough, and no genitourinary symptoms. PHYSICAL EXAMINATION: VITAL SIGNS: Temperature max 98.1, blood pressure 113/54, pulse 84, respirations 16. GENERAL: Awake and alert. HEENT: Ocular movements are conjugate. NECK: Supple. LUNGS: With symmetric clear breath sounds. ABDOMEN: Soft, not distended or tender. Ramirez and diaper. LABORATORY DATA: White cell count 5.4, hemoglobin 10, platelets 172. Sodium 132, creatinine 1.3. C D4 cell count 44, CMV was less than 200 copies per mL. The patient had an abdomen and pelvis CT ordered and it showed a complex left renal mass without enha ncement, mildly enlarged lymph nodes along the lesser curvature of the stomach. ASSESSMENT AND DISCUSSION: Advanced human immunodeficiency virus infection with CD4 cell count 44 wi th poor self-care, requirement for probable transfer to skilled unit or chronic senior living. The ab domen CT showed those changes in the kidney and it is like those are residual from prior treatment an d probably we will need to review the past records. Currently on cefepime. We will go ahead and dis continue the vancomycin and cefepime. Continue Bactrim and antiretroviral medication and weekly azit hromycin.
[2017-03-27] MEDS: Fluconazole 100 MG TAB PO SCH (17:33)
[2017-03-27 17:44] LABS: Vancomycin, Trough 24.5 ug/mL
[2017-03-27] MEDS: Atorvastatin Calcium 10 MG TAB PO SCH (20:19)
[2017-03-28] MEDS: Dextrose 5 %-0.45 % NaCl 1,000 ML IV SCH ×2 (01:44→12:19)
[2017-03-28] MEDS: Tamsulosin HCl 0.4 MG CAP PO SCH (08:31)
[2017-03-28] MEDS: Lisinopril 20 MG TAB PO SCH (08:31)
[2017-03-28] MEDS: Sulfameth/Trimethoprim DS 800-160mg TAB PO SCH (08:31)
[2017-03-28] MEDS: Metoprolol Tartrate 25 MG TAB PO SCH (08:32)
[2017-03-28] MEDS: Amlodipine 5 MG TAB PO SCH (08:32)
[2017-03-28] MEDS: Famotidine 20 MG TAB PO SCH (08:32)
[2017-03-28] MEDS: Docusate 100 MG CAP PO SCH (08:32)
[2017-03-28] MEDS: Raltegravir Potassium 400 MG TAB PO SCH (08:33)
[2017-03-28] MEDS: Lopinavir/Ritonavir 200-50mg TAB PO SCH (08:33)
[2017-03-28 12:07] VITALS: BP 97/46; TEMP 98
--- NOTE | 2017-03-28 13:33 | PDOC.PN ---
- Subjective Encounter Start Date: 03/28/17 Encounter Start Time: 09:15 Subjective: is sitting in chair, no sob, feels better -: has amb 300ft with PT - Objective Resuscitation Status: Resuscitation Status FULL:Full Resuscitation MAR Reviewed: Yes Vital Signs & Weight: Vital Signs (12 hours) Temp Pulse Resp BP BP BP Pulse Ox 03/28/17 12:06 98 F 69 16 97/46 L 03/28/17 08:32 58 L 128/76 03/28/17 08:31 128/76 03/28/17 08:00 98.1 F 58 L 16 03/28/17 07:25 98.1 F 58 L 16 128/76 100 03/28/17 03:59 98.0 F 60 16 130/69 100 I&O: 03/27/17 03/28/17 03/29/17 06:59 06:59 06:59 Intake Total 1835 2470 Output Total 550 Balance 1835 1920 Result Diagrams: 03/26/17 05:33 03/27/17 03:46 Additional Labs: Accuchecks 03/28/17 03/28/17 03/28/17 12:06 07:29 04:06 POC Glucose 139 H 91 111 H 03/28/17 03/28/17 03/27/17 03:44 00:14 20:34 POC Glucose 67 L 71 100 03/27/17 03/27/17 03/27/17 16:27 14:58 11:39 POC Glucose 72 73 118 H Phys Exam - Physical Examination HEENT: PERRLA, moist MMs Neck: no JVD, supple Respiratory: no wheezing, no rales Cardiovascular: RRR, no significant murmur Gastrointestinal: soft, non-tender, positive bowel sounds Musculoskeletal: no edema, pulses present Neurological: non-focal, moves all 4 limbs Dx/Plan (1) 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) Code(s): B20 - HUMAN IMMUNODEFICIENCY VIRUS [HIV] DISEASE; A41.9 - SEPSIS, UNSPECIFIED ORGANISM Status: Chronic (2) HTN (hypertension) Code(s): I10 - ESSENTIAL (PRIMARY) HYPERTENSION Status: Chronic Qualifiers: Hypertension type: essential hypertension Qualified Code(s): I10 - Essential (primary) hypertension (3) Dyslipidemia Code(s): E78.5 - HYPERLIPIDEMIA, UNSPECIFIED Status: Chronic (4) Diabetes mellitus Code(s): E11.9 - TYPE 2 DIABETES MELLITUS WITHOUT COMPLICATIONS Status: Chronic Qualifiers: Diabetes mellitus type: type 2 Diabetes mellitus complication status: with unspecified complications Diabetes mellitus emt intermediate insulin use: without emt intermediate use Qualified Code(s): E11.8 - Type 2 diabetes mellitus with unspecified complications Comment: (5) Chronic anemia Code(s): D64.9 - ANEMIA, UNSPECIFIED Status: Chronic (6) Moderate protein malnutrition Code(s): E44.0 - MODERATE PROTEIN-CALORIE MALNUTRITION Status: Chronic - Plan dc plan to rehab today -: hemostable -: on bactrim, azithro for low cd4 prophylaxis -: d/w girlfriend at bedside * .
--- NOTE | 2017-03-28 17:14 | DIS ---
DATE OF ADMISSION: 03/22/2017 DATE OF DISCHARGE: 03/28/2017 DISCHARGE DISPOSITION: To rehabilitation. PRIMARY DISCHARGE DIAGNOSES: Advanced HIV with low CD4 count, sepsis. SECONDARY DISCHARGE DIAGNOSES: Hypertension, dyslipidemia, chronic anemia, moderate protein malnutrition, diabetes mellitus type 2, likely dementia. PROCEDURES DONE DURING HOSPITALIZATION: Chest x-ray done on admission showed no acute infiltrate. CT brain showed no acute intracranial hemorrhage or stroke. Lumbar puncture done by Interventional Radiology on 03/24/2017, showed an opening pressure of 8 and 9 cm of water, had clear CSF. Abdominal and pelvic CAT scan with contrast showed complex left renal mass with no significant enhancement likely postsurgical/post ablative changes. No evidence of acute pancreatitis. There are mildly enlarged lymph nodes along the lesser curvature of the stomach, which were nonspecific. Blood cultures grew Staph epidermidis and presumptive corynebacterium likely contaminants. Influenza A and B were negative for antigens. Cryptococcal antigen was negative in the CSF. White count of 5 on the day of discharge with an H&H of 10 and 29, platelet count is 172. Discharge BUN and creatinine 15 and 1.3, absolute CD4 count is 44. Cytomegalovirus DNA PCR Log10 was not performed as it was less than Log10 international units per mL. CMV DNA UltraQuantitative was positive less than 200. CSF tube #4 was colorless and clear with 0 WBC and 0 RBC, total protein was 50 and CSF glucose was 53 on the sample. DISCHARGE MEDICATIONS: Zithromax 1200 mg once weekly; Bactrim double strength 1 tablet on Friday, Friday, Friday; Flomax 0.4 mg p.o. daily; simvastatin 20 mg p.o. at bedtime; Isentress 400 mg twice daily; Kaletra 2 tablets p.o. twice daily; Lopressor 25 mg twice daily; lisinopril 20 mg daily; Norvasc 5 mg p.o. daily. ALLERGIES: No known drug allergies. INPATIENT CONSULT: Dr. Beltrán for Infectious Disease. DISCHARGE PLAN: The patient to follow up with Dr. Beltrán in 2 weeks and primary care physician in 1 week. BRIEF COURSE DURING HOSPITALIZATION: The patient initially got admitted on the for altered mental state and fever. His last CD4 count was 74 in 10/2016. 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 He had a fever of 102.3 degrees. Based on the above findings and history, the patient was admitted for possible sepsis. He has had consultation with Dr. Beltrán. The patient likely is noncompliant with his medications or his HIV is resistant to current medications. In view of this, his medications were changed to Isentress and Kaletra. His CD4 count was 44 at this time. He is on Zithromax and Bactrim for CD4 prophylaxis. Torres cultures along with CSF analysis has not revealed any active infection as such. He was on broad spectrum IV antibiotics, which has been discontinued for the last 24 hours. He is ambulating around 300 feet with physical therapy. The patient is not fully oriented and has sundowning in the evenings. His family would like to take him home after rehab. They have been counseled adequately to make sure he takes his medications in view of his poorly controlled HIV and protein malnutrition as well. He also needs outpatient dental evaluation as well to make sure he can chew and swallow. He has poor dentition as well. Most of his teeth has fallen off. A total of 35 minutes was spent on discharge plan. Please see a face to face documentation on [facility] for the day of discharge. He is being shortly discharged to inpatient rehabilitation. TERRENCE
[2017-04-02 17:03] LABS: Histoplasma Antigen - Urine Less than 0.5 (<0.5 ng/mL)
--- NOTE | 2017-04-12 14:59 | EKG ---
Test Reason : Blood Pressure : / mmHG Vent. Rate : 073 BPM Atrial Rate : 073 BPM P-R Int : 194 ms QRS Dur : 084 ms QT Int : 408 ms P-R-T Axes : 076 042 074 degrees QTc Int : 449 ms Normal sinus rhythm Normal ECG Confirmed by LEATHA BURLESON D.O. ([id number]), general expeditor JUSTO STEVENS ([id number] on 04/12/2017 2:59:02 PM Referred By: Confirmed By:LEATHA BURLESON D.O.
== END 2017-03-28 13:15 | DRG 974 ==
LOC: ERS 12:50 → T4-A 17:06
PROVIDERS: ADMIT Emergency Medicine; ATTEND Emergency Medicine
PROC: 009U3ZX Drainage of Spinal Canal, Percutaneous Approach, Diagnostic (ICD-10-PCS; principal; 2017-03-24)
PROC: B01B1ZZ Fluoroscopy of Spinal Cord using Low Osmolar Contrast (ICD-10-PCS; 2017-03-24)
DX: B20 Human immunodeficiency virus [HIV] disease (principal); A41.9 Sepsis, unspecified organism; G92 Toxic encephalopathy; R65.20 Severe sepsis without septic shock; F05 Delirium due to known physiological condition; E44.0 Moderate protein-calorie malnutrition; N39.0 Urinary tract infection, site not specified; F02.80 Dementia in other diseases classified elsewhere, unspecified severity, without behavioral disturbance, psychotic disturbance, mood disturbance, and anxiety; Z79.84 Long term (current) use of oral hypoglycemic drugs; E78.5 Hyperlipidemia, unspecified; N40.0 Benign prostatic hyperplasia without lower urinary tract symptoms; F10.21 Alcohol dependence, in remission; Z87.891 Personal history of nicotine dependence; Z79.899 Other long term (current) drug therapy; R59.0 Localized enlarged lymph nodes; D64.9 Anemia, unspecified; Z68.23 Body mass index [BMI] 23.0-23.9, adult; E11.649 Type 2 diabetes mellitus with hypoglycemia without coma; E11.22 Type 2 diabetes mellitus with diabetic chronic kidney disease; I12.9 Hypertensive chronic kidney disease with stage 1 through stage 4 chronic kidney disease, or unspecified chronic kidney disease; N18.2 Chronic kidney disease, stage 2 (mild)
CPT/HCPCS: 36415; 36416; 51701; 62270; 70450; 71010; 74178; 80048; 80053; 80069; 80202; 81003; 81015; 82945; 83735; 84157; 85025; 85048; 86361; 87040; 87149; 87385; 87497; 87899; 89051; 93005; 96374; A4216; G8978-GP-CJ; G8979-GP-CH; G8987-GO-CJ; G8988-GO-CI; J0692; J0696; J3370; J7050

== ENCOUNTER 2017-05-02 21:31 | Emergency (ER) | payer MEDICARE, OTHER ==
[2017-05-02 22:27] LABS: #Eosinphils 0.1 thou/uL (0.0-0.7); #Lymphocytes 0.9 thou/uL (1.20-3.40); #Monocytes 0.5 thou/uL (0.11-0.59); #Neutrophils 4.3 thou/uL (1.40-6.50); %Basophils 0.5 % (0.0-1.0); %Eosinophils 2.1 % (0.0-10.0); %Monocytes 8.2 % (0.0-10.0); %Neutrophils 74.2 % (42.0-75.0); Hemoglobin 8.6 g/dL (14.0-18.0); Mean Corpuscular HGB CONC 32.8 g/dL (32.0-36.0); Mean Corpuscular Hemoglobin 31.2 pg (27.0-31.0); Mean Corpuscular Volume 95.1 fl (80.0-94.0); Mean Platelet Volume 6.8 fL (7.4-10.4); Platelet Count 221 thou/uL (130-400); RBC Distribution Width 14.8 % (11.5-14.5); Red Blood Cell (RBC) Count 2.77 mill/uL (4.70-6.10); White Blood Cell (WBC) Count 5.8 thou/uL (4.8-10.8)
[2017-05-02 22:46] LABS: ALT (SGPT) 10 U/L (8-55); AST (SGOT) 12 U/L (5-34); Albumin 3.2 g/dL (3.4-4.8); Alkaline Phosphatase 88 U/L (40-150); Anion Gap 12 mmol/L (10-20); BUN (Urea Nitrogen) 12 mg/dL (8.4-25.7); Bilirubin, Total 0.4 mg/dL (0.2-1.2); Calc. Creatinine Clearance 0 mL/min (70-130); Calcium 8.6 mg/dL (7.8-10.44); Carbon Dioxide 23 mmol/L (23-31); Chloride 108 mmol/L (98-107); Estimated GFR-MDRD 80; Globulin 4.4 g/dL (2.4-3.5); Glucose 63 mg/dL (83-110); Magnesium 1.7 mg/dL (1.6-2.6); Potassium 3.6 mmol/L (3.5-5.1); Protein, Total 7.6 g/dL (5.8-8.1); Sodium 139 mmol/L (136-145)
[2017-05-02 22:50] LABS: CKMB 1.2 ng/mL (0-6.6); Troponin I Less than 0.010 ng/mL (< 0.028)
== END 2017-05-03 00:26 | disposition home or self-care (01) ==
LOC: ERS 21:31
DX: E11.649 Type 2 diabetes mellitus with hypoglycemia without coma (principal); E46 Unspecified protein-calorie malnutrition; B20 Human immunodeficiency virus [HIV] disease; E78.5 Hyperlipidemia, unspecified; I10 Essential (primary) hypertension; N40.0 Benign prostatic hyperplasia without lower urinary tract symptoms; F31.9 Bipolar disorder, unspecified; Z87.891 Personal history of nicotine dependence; Z79.84 Long term (current) use of oral hypoglycemic drugs; Z79.899 Other long term (current) drug therapy
CPT/HCPCS: 36415; 36416; 80053; 82553; 83605; 83735; 84484; 85025; 99285

== ENCOUNTER 2017-05-05 18:14 | Emergency (ER) | payer MEDICARE, MEDICAID ==
[2017-05-05 19:03] LABS: #Eosinphils 0.2 thou/uL (0.0-0.7); #Lymphocytes 1.1 thou/uL (1.20-3.40); #Monocytes 0.6 thou/uL (0.11-0.59); #Neutrophils 4.5 thou/uL (1.40-6.50); %Basophils 0.5 % (0.0-1.0); %Eosinophils 2.4 % (0.0-10.0); %Lymphocytes 16.8 % (21.0-51.0); %Monocytes 9.9 % (0.0-10.0); %Neutrophils 70.5 % (42.0-75.0); Hemoglobin 8.8 g/dL (14.0-18.0); Mean Corpuscular HGB CONC 32.6 g/dL (32.0-36.0); Mean Corpuscular Volume 94.9 fl (80.0-94.0); Platelet Count 205 thou/uL (130-400); RBC Distribution Width 14.6 % (11.5-14.5); Red Blood Cell (RBC) Count 2.84 mill/uL (4.70-6.10); White Blood Cell (WBC) Count 6.4 thou/uL (4.8-10.8)
[2017-05-05 19:25] LABS: ALT (SGPT) 10 U/L (8-55); AST (SGOT) 16 U/L (5-34); Albumin 3.3 g/dL (3.4-4.8); Alkaline Phosphatase 81 U/L (40-150); Anion Gap 10 mmol/L (10-20); BUN (Urea Nitrogen) 10 mg/dL (8.4-25.7); Bilirubin, Total 0.5 mg/dL (0.2-1.2); Calc. Creatinine Clearance 0 mL/min (70-130); Calcium 8.5 mg/dL (7.8-10.44); Carbon Dioxide 23 mmol/L (23-31); Chloride 107 mmol/L (98-107); Estimated GFR-MDRD 89; Globulin 4.4 g/dL (2.4-3.5); Glucose 99 mg/dL (83-110); Potassium 3.2 mmol/L (3.5-5.1); Protein, Total 7.7 g/dL (5.8-8.1); Sodium 137 mmol/L (136-145)
[2017-05-05 19:29] LABS: CKMB 1.7 ng/mL (0-6.6); Troponin I 0.014 ng/mL (< 0.028)
--- NOTE | 2017-05-05 20:27 | RAD ---
PORTABLE CHEST: Date: 05-05-17 Provided Clinical History: Cough. FINDINGS: Comparison 03-22-17 Cardiac and mediastinal silhouette is within normal limits. No focal consolidation, pleural fluid or pneumothorax apparent. IMPRESSION: No evidence for an acute cardiopulmonary process. POS: [facility]
--- NOTE | 2017-05-05 20:36 | CT ---
CT BRAIN: Date: 05-05-17 Provided Clinical History: Trauma. FINDINGS: Comparison is made with 03-22-17. The ventricular system appears normal in size and morphology. There is no evidence for intracranial h emorrhage or mass effect. The extracranial soft tissues and osseous structures demonstrate no acute a bnormality. IMPRESSION: No evidence for intracranial hemorrhage or mass effect. POS: [facility]
[2017-05-05] MEDS ORDERED: Potassium Chloride 20 MEQ TAB ONE (20:44)
[2017-05-05 20:55] LABS: Bilirubin Negative (Negative); Blood, Urine Negative (Negative); Clarity CLOUDY (Clear); Glucose, Urine (Dipstick) Negative (Negative); Leukocyte Negative (Negative); Nitrite Negative (Negative); Protein, Urine (Dipstick) 100 mg/dL (Neg-Trace); Specific Gravity, Urine 1.016 (1.002-1.036)
[2017-05-05 20:57] LABS: Bacteria/HPF None Seen HPF (None Seen); Hyaline Casts/LPF 0-3 HYALINE CAST LPF (0-3 Hyaline); Pathc Cast-AUWi Flag 0.13 (0-2.49); RBC/HPF 0-3 HPF (0-3); Squamous Epithelial 0-3 HPF (0-3); WBC/HPF 0-3 HPF (0-3)
== END 2017-05-05 23:25 | disposition home or self-care (01) ==
LOC: ERS 18:14
DX: E11.649 Type 2 diabetes mellitus with hypoglycemia without coma (principal); E78.5 Hyperlipidemia, unspecified; I10 Essential (primary) hypertension; F31.9 Bipolar disorder, unspecified; B20 Human immunodeficiency virus [HIV] disease; Z79.899 Other long term (current) drug therapy; Z79.84 Long term (current) use of oral hypoglycemic drugs; Z87.891 Personal history of nicotine dependence
CPT/HCPCS: 36415; 36416; 70450; 71045; 80053; 81003; 81015; 82553; 84484; 85025; 93005

== ENCOUNTER 2017-11-03 16:38 | Inpatient (IN) | payer MEDICARE, MEDICAID ==
[2017-11-03 16:57] LABS: #Eosinphils 0.2 thou/uL (0.0-0.7); #Lymphocytes 2.4 thou/uL (1.20-3.40); #Monocytes 0.5 thou/uL (0.11-0.59); #Neutrophils 2.8 thou/uL (1.40-6.50); %Basophils 0.4 % (0.0-1.0); %Eosinophils 3.8 % (0.0-10.0); %Lymphocytes 40.7 % (21.0-51.0); %Monocytes 7.8 % (0.0-10.0); %Neutrophils 47.4 % (42.0-75.0); Hemoglobin 11.2 g/dL (14.0-18.0); Mean Corpuscular HGB CONC 35.2 g/dL (32.0-36.0); Mean Corpuscular Hemoglobin 31.5 pg (27.0-31.0); Mean Corpuscular Volume 89.6 fL (78.0-98.0); Mean Platelet Volume 6.7 fL (7.4-10.4); Platelet Count 188 thou/uL (130-400); RBC Distribution Width 12.9 % (11.5-14.5); Red Blood Cell (RBC) Count 3.56 mill/uL (4.70-6.10); White Blood Cell (WBC) Count 5.9 thou/uL (4.8-10.8)
[2017-11-03 17:03] LABS: INR-International Normal Ratio 1.1; PTT 27.8 SEC (22.9-36.1); Prothrombin Time 13.9 SEC (12.0-14.7)
[2017-11-03 17:13] LABS: CKMB 4.4 ng/mL (0-6.6); Troponin I Less than 0.010 ng/mL (< 0.028)
[2017-11-03 17:20] LABS: Acetaminophen Less than 6.0 mcg/mL (10.0-30.0); Alcohol Less than 10 mg/dL (Less than 10); Salicylate Less than 8.0 mg/dL (15.0-30.0)
[2017-11-03 17:22] LABS: ALT (SGPT) 9 U/L (8-55); AST (SGOT) 23 U/L (5-34); Albumin 3.8 g/dL (3.4-4.8); Alkaline Phosphatase 72 U/L (40-150); Anion Gap 13 mmol/L (10-20); BUN (Urea Nitrogen) 9 mg/dL (8.4-25.7); Bilirubin, Total 0.4 mg/dL (0.2-1.2); Calc. Creatinine Clearance 0 mL/min (70-130); Calcium 8.6 mg/dL (7.8-10.44); Carbon Dioxide 20 mmol/L (23-31); Chloride 109 mmol/L (98-107); Estimated GFR-MDRD 64; Globulin 4.6 g/dL (2.4-3.5); Glucose 97 mg/dL (83-110); Potassium 3.4 mmol/L (3.5-5.1); Protein, Total 8.4 g/dL (5.8-8.1); Sodium 139 mmol/L (136-145)
[2017-11-03] MEDS ORDERED: Adacel (T-DAP) 0.5 ML VIAL ONE (17:34)
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
[2017-11-03 17:36] LABS: Bilirubin Negative (Negative); Blood, Urine Trace (Negative); Clarity CLEAR (Clear); Glucose, Urine (Dipstick) Negative (Negative); Leukocyte Trace (Negative); Nitrite Negative (Negative); Protein, Urine (Dipstick) 100 mg/dL (Neg-Trace); Specific Gravity, Urine 1.021 (1.002-1.036); pH, Urine 6.5 (5.0-9.0)
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
[2017-11-03 17:39] LABS: Bacteria/HPF None Seen HPF (None Seen); Hyaline Casts/LPF 0-3 HYALINE CAST LPF (0-3 Hyaline); RBC/HPF 0-3 HPF (0-3); Squamous Epithelial 0-3 HPF (0-3); WBC/HPF 0-3 HPF (0-3)
--- NOTE | 2017-11-03 17:42 | CT ---
CHEST CT WITH CONTRAST: ABDOMEN CT WITH CONTRAST: PELVIS CT WITH CONTRAST: LIMITED CT OF THE THORACIC AND LUMBAR SPINE: FINDINGS: CHEST: No mediastinal mass or hematoma. Upper normal right paratracheal and axillary lymph nodes. No hilar lymphadenopathy. The heart size is normal. No pericardial effusion. The visualized aorta has an overall normal caliber. No paraaortic fat stranding. The trachea and central bronchi are patent. Dependent atelectatic changes. No consolidation or mass es. No pneumothorax. ABDOMEN: Intrahepatic and extrahepatic portal veins are patent. No fluid in the Sanchez pouch. Th e liver, spleen, pancreas, and adrenal glands have appropriate enhancement. Symmetric enhancement of the kidneys. Redemonstration of a calcified mass in the mid to lower pole l eft kidney, measuring 2.4 x 2.8 cm. Hypodensity in the lower pole of the right kidney, measuring 1.7 x 1.9 cm. Both lesions are unchanged from the examination from 09/02/2011. Symmetric attenuation of the psoas muscles. No gastrohepatic, retrocrural, or periportal lymphadenopathy. There are scattered nonspecific, nonenlarged mesenteric lymph nodes. No mass, free air, or free flui d. Limited evaluation of the alimentary canal by lack of oral contrast. The gastric mucosa, the duodenu m, and multiple normal caliber small bowel loops are identified. The ileocecal junction is normal. Normal caliber appendix. Scattered fecal material in a nondistended, nondilated colon. PELVIS: No mass, lymphadenopathy, free air, or free fluid. The urinary bladder is unremarkable. The bony thorax is unremarkable. The bony pelvis is unremarkable. THORACIC AND LUMBAR SPINE: Vertebral body heights are maintained. No fracture or malalignment. Vac uum disk phenomenon is noted. IMPRESSION: No post traumatic sequelae in the chest, abdomen, or pelvis. The results of the study were discussed with Dr. Andersen in 11/03/2017 at 5:19 p.m. CODE CR POS: [facility]
[2017-11-03 17:47] LABS: Amphetamine Not Detected (NotDetected); Barbiturates Screen Not Detected (NotDetected); Benzodiazepine Screen Not Detected (NotDetected); Cocaine Metabolite Screen Not Detected (NotDetected); Medtox Control Line Valid? VALID (VALID); Medtox Reader # READER 4; Methadone Not Detected (NotDetected); Methamphetamine Not Detected (NotDetected); Opiate Screen Not Detected (NotDetected); Oxycodone Screen Not Detected (NotDetected); Phencyclidine (PCP) Not Detected (NotDetected); THC/Cannabinoid Screen Not Detected (NotDetected); Tricyclic Screen Not Detected (NotDetected)
[2017-11-03] MEDS ORDERED: hydrALAZINE 20 MG/ML VIAL ONE (17:52)
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
[2017-11-03] MEDS ORDERED: Labetalol HCl 100 MG/20 ML VIAL ONE ×2 (18:40→21:31)
[2017-11-03] MEDS ORDERED: Acetaminophen 325 MG TAB PO PRN (19:57)
[2017-11-03] MEDS ORDERED: Lorazepam 2 MG/ML VIAL SLOW IVP PRN (19:57)
[2017-11-03 20:01] LABS: Troponin I Less than 0.010 ng/mL (< 0.028)
[2017-11-03] MEDS ORDERED: Dextrose 50% Abboject 50 ML SYRINGE SLOW IVP PRN (20:10)
[2017-11-03] MEDS ORDERED: HumaLOG 300 UNITS/3 ML VIAL SC PRN (20:10)
[2017-11-03] MEDS ORDERED: Dextrose 5% in Water 1,000 ML IV PRN (20:10)
[2017-11-03] MEDS ORDERED: Insulin Regular 300 UNITS/3 ML VIAL SC PRN (20:10)
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
[2017-11-03] MEDS ORDERED: Simvastatin 20 MG TAB PO SCH (21:00)
[2017-11-03 22:31] VITALS: BMI 24.7
[2017-11-03 23:08] LABS: Troponin I 0.013 ng/mL (< 0.028)
[2017-11-03 23:54] LABS: Hemoglobin 12.7 g/dL (14.0-18.0)
[2017-11-04] MEDS: Raltegravir Potassium 400 MG TAB PO SCH ×2 (00:01→10:45)
[2017-11-04] MEDS: Lopinavir/Ritonavir 200-50mg TAB PO SCH ×2 (00:02→10:45)
[2017-11-04] MEDS: Metoprolol Tartrate 25 MG TAB PO SCH ×2 (00:02→09:44)
[2017-11-04] MEDS: Ondansetron HCl/PF 4 MG/2 ML Vial IVP PRN ×2 (00:03→09:47)
[2017-11-04 05:30] LABS: Hemoglobin 12.1 g/dL (14.0-18.0)
[2017-11-04 05:35] LABS: #Lymphocytes 1.1 thou/uL (1.20-3.40); #Monocytes 0.5 thou/uL (0.11-0.59); #Neutrophils 5.2 thou/uL (1.40-6.50); %Basophils 0.7 % (0.0-1.0); %Eosinophils 0.1 % (0.0-10.0); %Lymphocytes 15.8 % (21.0-51.0); %Monocytes 7.2 % (0.0-10.0); %Neutrophils 76.2 % (42.0-75.0); Mean Corpuscular HGB CONC 32.4 g/dL (32.0-36.0); Mean Corpuscular Hemoglobin 29.3 pg (27.0-31.0); Mean Corpuscular Volume 90.3 fL (78.0-98.0); Mean Platelet Volume 7.2 fL (7.4-10.4); Platelet Count 209 thou/uL (130-400); RBC Distribution Width 12.9 % (11.5-14.5); Red Blood Cell (RBC) Count 4.11 mill/uL (4.70-6.10); White Blood Cell (WBC) Count 6.8 thou/uL (4.8-10.8)
[2017-11-04] MEDS: Sodium Chloride 0.9% 1,000 ML IV SCH ×2 (05:44→16:52)
[2017-11-04 06:08] LABS: Anion Gap 15 mmol/L (10-20); BUN (Urea Nitrogen) 8 mg/dL (8.4-25.7); Calc. Creatinine Clearance 56 mL/min (70-130); Calcium 9.2 mg/dL (7.8-10.44); Carbon Dioxide 23 mmol/L (23-31); Chloride 103 mmol/L (98-107); Estimated GFR-MDRD 69; Glucose 176 mg/dL (83-110); Potassium 3.6 mmol/L (3.5-5.1); Sodium 137 mmol/L (136-145)
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
[2017-11-04] MEDS ORDERED: Amlodipine 5 MG TAB PO SCH (09:00)
[2017-11-04] MEDS ORDERED: Enoxaparin Sodium 40 MG/0.4 ML SYRINGE SC SCH (09:00)
[2017-11-04] MEDS ORDERED: Azithromycin 200 MG/5 ML Oral Suspension PO SCH (09:00)
[2017-11-04] MEDS ORDERED: Lisinopril 20 MG TAB PO SCH (09:00)
[2017-11-04] MEDS ORDERED: Tamsulosin HCl 0.4 MG CAP PO SCH (09:00)
[2017-11-04] MEDS ORDERED: Prevnar 13-Val Conj/PF 0.5 ML SYRINGE IM ONE (09:00)
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
[2017-11-04 12:06] LABS: Hemoglobin 11.4 g/dL (14.0-18.0)
[2017-11-04 15:45] VITALS: BP 157/80; TEMP 97.5
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
[2017-11-05] MEDS ORDERED: Sulfameth/Trimethoprim DS 800-160mg TAB PO SCH (09:00)
== END 2017-11-04 16:38 | disposition home or self-care (01) | DRG 88 ==
LOC: ERS 16:38 → 2SE 21:47
PROVIDERS: ADMIT Internal Medicine Infectious Disease; ATTEND Internal Medicine Infectious Disease
DX: S06.0X0A Concussion without loss of consciousness, initial encounter (principal); G93.40 Encephalopathy, unspecified; N17.9 Acute kidney failure, unspecified; E87.6 Hypokalemia; Z21 Asymptomatic human immunodeficiency virus [HIV] infection status; I10 Essential (primary) hypertension; I16.0 Hypertensive urgency; E11.9 Type 2 diabetes mellitus without complications; E78.5 Hyperlipidemia, unspecified; F31.9 Bipolar disorder, unspecified; Z87.891 Personal history of nicotine dependence; Z79.84 Long term (current) use of oral hypoglycemic drugs; Z79.899 Other long term (current) drug therapy; V89.2XXA Person injured in unspecified motor-vehicle accident, traffic, initial encounter
CPT/HCPCS: 36415; 36416; 70450; 71045; 71260; 72125; 72170; 74177; 80048; 80053; 80306; 80307; 81003; 81015; 82140; 82553; 84484; 85025; 85610; 85730; 86850; 86900; 86901; 90471; 90670; 90715; 93005; 96374; 96375; 96376; G0009; G0390; J0360; J2405

== ENCOUNTER 2018-07-28 21:52 | Observation (INO) | payer MEDICARE, MEDICAID ==
[2018-07-28 22:26] LABS: #Lymphocytes 0.5 thou/uL (1.20-3.40); #Monocytes 0.4 thou/uL (0.11-0.59); #Neutrophils 3.8 thou/uL (1.40-6.50); %Basophils 0.2 % (0.0-1.0); %Eosinophils 0.3 % (0.0-10.0); %Lymphocytes 11.4 % (21.0-51.0); %Monocytes 8.6 % (0.0-10.0); %Neutrophils 79.5 % (42.0-75.0); Hemoglobin 11.1 g/dL (14.0-18.0); Mean Corpuscular HGB CONC 33.3 g/dL (32.0-36.0); Mean Corpuscular Hemoglobin 30.6 pg (27.0-31.0); Mean Platelet Volume 7.4 fL (7.4-10.4); Platelet Count 160 thou/uL (130-400); RBC Distribution Width 11.6 % (11.5-14.5); Red Blood Cell (RBC) Count 3.62 mill/uL (4.70-6.10); White Blood Cell (WBC) Count 4.8 thou/uL (4.8-10.8)
--- NOTE | 2018-07-28 22:39 | RAD ---
PORTABLE SUPINE CHEST: 07/28/18 HISTORY: Altered mental status. Heart size and mediastinum are within normal limits considering supine technique. The lungs are clear of any infiltrative process. No acute bony findings. IMPRESSION: No active intrathoracic disease. POS: [facility]
[2018-07-28 22:47] LABS: Acetaminophen Less than 6.0 mcg/mL (10.0-30.0); Alcohol Less than 10 mg/dL (Less than 10); Salicylate Less than 8.0 mg/dL (15.0-30.0)
[2018-07-28 22:49] LABS: ALT (SGPT) 8 U/L (8-55); AST (SGOT) 14 U/L (5-34); Albumin 3.5 g/dL (3.4-4.8); Alkaline Phosphatase 59 U/L (40-150); Anion Gap 12 mmol/L (10-20); BUN (Urea Nitrogen) 28 mg/dL (8.4-25.7); Bilirubin, Total 0.5 mg/dL (0.2-1.2); CK (CPK) 205 U/L (30-200); Calc. Creatinine Clearance 0 mL/min (70-130); Calcium 8.9 mg/dL (7.8-10.44); Carbon Dioxide 23 mmol/L (23-31); Chloride 106 mmol/L (98-107); Estimated GFR-MDRD 44; Globulin 4.8 g/dL (2.4-3.5); Glucose 151 mg/dL (83-110); Lipase 24 U/L (8-78); Potassium 4.5 mmol/L (3.5-5.1); Protein, Total 8.3 g/dL (5.8-8.1); Sodium 136 mmol/L (136-145)
--- NOTE | 2018-07-28 22:55 | CT ---
BRAIN CT WITHOUT IV CONTRAST: 07/28/18 HISTORY: Altered mental status. COMPARISON: 11/03/17. FINDINGS: There is some scattered atrophy and chronic white matter ischemic change. No focal mass or midline sh ift. Sinuses and mastoids are clear of acute process. IMPRESSION: No significant acute intracranial process. No mass or bleed. POS: [facility]
[2018-07-29 00:02] LABS: Amphetamine Not Detected (NotDetected); Barbiturates Screen Not Detected (NotDetected); Benzodiazepine Screen Not Detected (NotDetected); Cocaine Metabolite Screen Not Detected (NotDetected); Medtox Control Line Valid? VALID (VALID); Medtox Reader # READER 4; Methadone Not Detected (NotDetected); Methamphetamine Not Detected (NotDetected); Opiate Screen Not Detected (NotDetected); Oxycodone Screen Not Detected (NotDetected); Phencyclidine (PCP) Not Detected (NotDetected); THC/Cannabinoid Screen Not Detected (NotDetected); Tricyclic Screen Not Detected (NotDetected)
[2018-07-29 00:27] LABS: Bilirubin Negative (Negative); Blood, Urine Moderate (Negative); Clarity CLOUDY (Clear); Glucose, Urine (Dipstick) Negative (Negative); Leukocyte Moderate (Negative); Nitrite Negative (Negative); Protein, Urine (Dipstick) 300 mg/dL (Neg-Trace); Specific Gravity, Urine 1.012 (1.002-1.036)
[2018-07-29 00:29] LABS: Bacteria/HPF None Seen HPF (None Seen); Hyaline Casts/LPF 0-3 HYALINE CAST LPF (0-3 Hyaline); Pathc Cast-AUWi Flag 0.13 (0-2.49); Squamous Epithelial None Seen HPF (0-3)
[2018-07-29 03:24] VITALS: BMI 23.4
[2018-07-29] MEDS ORDERED: D5 1/2 NS w/20 mEq KCL 1,000 ML IV SCH (04:15)
[2018-07-29] MEDS ORDERED: Acetaminophen 325 MG TAB PO PRN (08:08)
[2018-07-29] MEDS ORDERED: Ondansetron ODT 4 MG TAB PO PRN (08:08)
[2018-07-29] MEDS ORDERED: Acetaminophen 650 MG Suppository PR PRN (08:08)
[2018-07-29] MEDS ORDERED: Ondansetron PF 4 MG/2 ML Vial IVP PRN (08:08)
[2018-07-29 08:10] LABS: Hemoglobin 11.3 g/dL (14.0-18.0); Mean Corpuscular HGB CONC 33.7 g/dL (32.0-36.0); Mean Corpuscular Hemoglobin 30.4 pg (27.0-31.0); Mean Corpuscular Volume 90.2 fL (78.0-98.0); Mean Platelet Volume 7.7 fL (7.4-10.4); Platelet Count 156 thou/uL (130-400); RBC Distribution Width 11.6 % (11.5-14.5); Red Blood Cell (RBC) Count 3.73 mill/uL (4.70-6.10); White Blood Cell (WBC) Count 3.8 thou/uL (4.8-10.8)
[2018-07-29 08:29] LABS: Anion Gap 13 mmol/L (10-20); BUN (Urea Nitrogen) 23 mg/dL (8.4-25.7); CK (CPK) 296 U/L (30-200); Calc. Creatinine Clearance 40 mL/min (70-130); Calcium 8.9 mg/dL (7.8-10.44); Carbon Dioxide 22 mmol/L (23-31); Chloride 106 mmol/L (98-107); Estimated GFR-MDRD 51; Glucose 140 mg/dL (83-110); Potassium 4.5 mmol/L (3.5-5.1); Sodium 136 mmol/L (136-145)
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
[2018-07-29 10:02] LABS: Band 14 % (5-11); Lymphocytes 21 % (21-51); MDiff Complete? YES; Monocytes 9 % (0-10); Neutrophil 56 % (42-75); Nucleated RBC 3 % (0); Platelet Morphology Comment Appears Adequate
[2018-07-29] MEDS ORDERED: Cefdinir 300 MG CAP PO SCH (10:45)
[2018-07-29] MEDS: Famotidine/PF 20 mg/2ml Vial SLOW IVP SCH ×2 (10:48→20:38)
[2018-07-29] MEDS ORDERED: Dextrose 5% in Water 1,000 ML IV PRN (12:49)
[2018-07-29] MEDS ORDERED: Dextrose 50% Abboject 50 ML SYRINGE SLOW IVP PRN (12:49)
[2018-07-29] MEDS ORDERED: HumaLOG 300 UNITS/3 ML VIAL SC PRN ×2 (12:49)
[2018-07-29] MEDS: Metoprolol Tartrate 25 MG TAB PO SCH (20:38)
[2018-07-29] MEDS: Cefdinir 300 MG CAP PO SCH (20:39)
[2018-07-30 07:26] LABS: #Eosinphils 0.2 thou/uL (0.0-0.7); #Lymphocytes 0.6 thou/uL (1.20-3.40); #Monocytes 0.4 thou/uL (0.11-0.59); #Neutrophils 1.6 thou/uL (1.40-6.50); %Eosinophils 5.6 % (0.0-10.0); %Lymphocytes 23.1 % (21.0-51.0); %Monocytes 14.7 % (0.0-10.0); %Neutrophils 56.6 % (42.0-75.0); Mean Corpuscular HGB CONC 34.1 g/dL (32.0-36.0); Mean Corpuscular Hemoglobin 30.9 pg (27.0-31.0); Mean Corpuscular Volume 90.5 fL (78.0-98.0); Mean Platelet Volume 7.7 fL (7.4-10.4); Platelet Count 148 thou/uL (130-400); RBC Distribution Width 11.7 % (11.5-14.5); Red Blood Cell (RBC) Count 3.57 mill/uL (4.70-6.10); White Blood Cell (WBC) Count 2.8 thou/uL (4.8-10.8)
[2018-07-30 07:43] LABS: Anion Gap 12 mmol/L (10-20); BUN (Urea Nitrogen) 27 mg/dL (8.4-25.7); Calc. Creatinine Clearance 38 mL/min (70-130); Carbon Dioxide 21 mmol/L (23-31); Chloride 109 mmol/L (98-107); Estimated GFR-MDRD 48; Glucose 78 mg/dL (83-110); Potassium 4.5 mmol/L (3.5-5.1); Sodium 137 mmol/L (136-145)
[2018-07-30] MEDS: Metoprolol Tartrate 25 MG TAB PO SCH (08:20)
[2018-07-30] MEDS: Cefdinir 300 MG CAP PO SCH (08:20)
[2018-07-30] MEDS: Famotidine/PF 20 mg/2ml Vial SLOW IVP SCH (08:20)
[2018-07-30] MEDS ORDERED: Ezetimibe 10 MG TAB PO SCH (09:00)
[2018-07-30] MEDS ORDERED: Lisinopril 20 MG TAB PO SCH (09:00)
[2018-07-30] MEDS ORDERED: [UNRECOGNIZED DRUG - OTHER] PO SCH (09:00)
[2018-07-30 11:00] VITALS: BP 111/68; TEMP 97.4
[2018-07-30 13:14] LABS: %CD4 (Helper/Inducer) 7.4 % (30.8-58.5); Absolute CD4 52 /uL (359-1519); Lymphocytes/Gated Cell Count 0.7 x10E3/uL (0.7-3.1); Total Lymphocyte 18 % (Not Estab.); WBC Total Count 3.6 x10E3/uL (3.4-10.8)
== END 2018-07-30 11:43 | disposition home health service (06) ==
LOC: ERS 21:52 → T4-B 23:13
PROVIDERS: ADMIT Internal Medicine; ATTEND Internal Medicine
DX: R41.82 Altered mental status, unspecified (principal); I10 Essential (primary) hypertension; E11.9 Type 2 diabetes mellitus without complications; E78.5 Hyperlipidemia, unspecified; N40.0 Benign prostatic hyperplasia without lower urinary tract symptoms; N39.0 Urinary tract infection, site not specified; N17.9 Acute kidney failure, unspecified; B20 Human immunodeficiency virus [HIV] disease; Z79.84 Long term (current) use of oral hypoglycemic drugs; Z79.899 Other long term (current) drug therapy
CPT/HCPCS: 51701; 70450; 71045; 80048 ×2; 80306; 80307; 82140; 82550 ×2; 82962 ×2; 83605; 83690; 83880; 84484; 85025 ×2; 85048; 86361; 87040; 87086; 93005; 96361 ×2; 96374; 96376 ×2; 97116; 97139 ×4; 97530; 99285; G0378 ×2; 36415; 36416; 80053; 81003; 81015; 84443; 96360; S0028

== ENCOUNTER 2018-08-01 18:12 | Inpatient (IN) | payer MEDICARE, MEDICAID ==
[2018-08-01 19:02] LABS: Hemoglobin 10.9 g/dL (14.0-18.0); Mean Corpuscular HGB CONC 34.1 g/dL (32.0-36.0); Mean Corpuscular Hemoglobin 30.6 pg (27.0-31.0); Mean Corpuscular Volume 89.9 fL (78.0-98.0); Mean Platelet Volume 7.5 fL (7.4-10.4); Platelet Count 161 thou/uL (130-400); RBC Distribution Width 11.6 % (11.5-14.5); Red Blood Cell (RBC) Count 3.55 mill/uL (4.70-6.10); White Blood Cell (WBC) Count 2.5 thou/uL (4.8-10.8)
[2018-08-01 19:09] LABS: Acetaminophen Less than 6.0 mcg/mL (10.0-30.0); Alcohol Less than 10 mg/dL (Less than 10); Salicylate Less than 8.0 mg/dL (15.0-30.0)
[2018-08-01 19:10] LABS: ALT (SGPT) 11 U/L (8-55); AST (SGOT) 19 U/L (5-34); Albumin 3.6 g/dL (3.4-4.8); Alkaline Phosphatase 51 U/L (40-150); Anion Gap 13 mmol/L (10-20); BUN (Urea Nitrogen) 34 mg/dL (8.4-25.7); Bilirubin, Total 0.5 mg/dL (0.2-1.2); CK (CPK) 300 U/L (30-200); Calc. Creatinine Clearance 0 mL/min (70-130); Calcium 9.3 mg/dL (7.8-10.44); Carbon Dioxide 20 mmol/L (23-31); Chloride 108 mmol/L (98-107); Estimated GFR-MDRD 28; Glucose 121 mg/dL (83-110); Potassium 4.2 mmol/L (3.5-5.1); Protein, Total 8.6 g/dL (5.8-8.1); Sodium 137 mmol/L (136-145)
[2018-08-01 19:18] LABS: Band 7 % (5-11); Eosinophils 4 % (0-10); Lymphocytes 27 % (21-51); MDiff Complete? YES; Monocytes 16 % (0-10); Neutrophil 46 % (42-75); Ovalocytes SLIGHT = 2-5 cells (100X) (0-1/hpf); Platelet Morphology Comment Appears Adequate; Polychromasia SLIGHT = 2-3 cells (100X) (0-2/hpf)
[2018-08-01 19:30] LABS: Bilirubin Small (Negative); Blood, Urine Trace (Negative); Clarity CLOUDY (Clear); Glucose, Urine (Dipstick) Negative (Negative); Leukocyte Large (Negative); Nitrite Negative (Negative); Protein, Urine (Dipstick) 100 mg/dL (Neg-Trace); Specific Gravity, Urine 1.013 (1.002-1.036); pH, Urine 7.5 (5.0-9.0)
[2018-08-01 19:32] LABS: Bacteria/HPF None Seen HPF (None Seen); Hyaline Casts/LPF 0-3 HYALINE CAST LPF (0-3 Hyaline); Pathc Cast-AUWi Flag 0.27 (0-2.49); Squamous Epithelial 0-3 HPF (0-3)
[2018-08-01 19:42] LABS: Amphetamine Not Detected (NotDetected); Barbiturates Screen Not Detected (NotDetected); Benzodiazepine Screen Not Detected (NotDetected); Cocaine Metabolite Screen Not Detected (NotDetected); Medtox Control Line Valid? VALID (VALID); Medtox Reader # READER 4; Methadone Not Detected (NotDetected); Methamphetamine Not Detected (NotDetected); Opiate Screen Not Detected (NotDetected); Oxycodone Screen Not Detected (NotDetected); Phencyclidine (PCP) Not Detected (NotDetected); THC/Cannabinoid Screen Not Detected (NotDetected); Tricyclic Screen Not Detected (NotDetected)
[2018-08-01] MEDS ORDERED: Acetaminophen 325 MG TAB PO PRN (20:29)
[2018-08-01] MEDS ORDERED: Dextrose 5% in Water 1,000 ML IV PRN (20:38)
[2018-08-01] MEDS ORDERED: HumaLOG 300 UNITS/3 ML VIAL SC PRN (20:38)
[2018-08-01] MEDS ORDERED: Dextrose 50% Abboject 50 ML SYRINGE SLOW IVP PRN (20:38)
[2018-08-01] MEDS: Raltegravir Potassium 400 MG TAB PO SCH ×2 (22:27→22:37)
[2018-08-01] MEDS: Metoprolol Tartrate 25 MG TAB PO SCH ×2 (22:27→22:37)
[2018-08-01 23:06] VITALS: BMI 23.3
[2018-08-02] MEDS: Sodium Chloride 0.45% 1,000 ML IV SCH ×3 (01:06→20:18)
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
[2018-08-02 06:57] LABS: Anion Gap 10 mmol/L (10-20); BUN (Urea Nitrogen) 30 mg/dL (8.4-25.7); Calc. Creatinine Clearance 29 mL/min (70-130); Calcium 8.6 mg/dL (7.8-10.44); Carbon Dioxide 21 mmol/L (23-31); Chloride 111 mmol/L (98-107); Estimated GFR-MDRD 36; Glucose 75 mg/dL (83-110); Potassium 3.9 mmol/L (3.5-5.1); Sodium 138 mmol/L (136-145)
[2018-08-02 07:05] LABS: Hemoglobin 9.9 g/dL (14.0-18.0); Hypochromia SLIGHT = 6-15 cells (100X) (0-5/hpf); Lymphocytes 32 % (21-51); MDiff Complete? YES; Mean Corpuscular Hemoglobin 30.7 pg (27.0-31.0); Mean Corpuscular Volume 90.1 fL (78.0-98.0); Mean Platelet Volume 7.4 fL (7.4-10.4); Neutrophil 68 % (42-75); Platelet Count 140 thou/uL (130-400); Platelet Morphology Comment Appears Adequate; RBC Distribution Width 11.4 % (11.5-14.5); Red Blood Cell (RBC) Count 3.23 mill/uL (4.70-6.10); White Blood Cell (WBC) Count 2.7 thou/uL (4.8-10.8)
[2018-08-02] MEDS: Metoprolol Tartrate 25 MG TAB PO SCH ×2 (07:58→20:11)
[2018-08-02] MEDS ORDERED: Prevnar 13-Val Conj/PF 0.5 ML SYRINGE IM ONE (09:00)
[2018-08-02] MEDS: Raltegravir Potassium 400 MG TAB PO SCH ×2 (11:01→20:11)
--- NOTE | 2018-08-02 14:33 | PDOC.PN ---
- Subjective Encounter Start Date: 08/02/18 Encounter Start Time: 11:00 Subjective: Patient sitting in bed this am, finishing his breakfast -: Denies any complaints, A&O x3 -: Denies CP, SOB, abdominal pain Reports he was "hanging out with friends" yesterday and the next thing he remembers is waking up here at the hospital. Denies alcohol/drug use yesterday, reports he lives alone and has a neighbor that checks on him but she is in her 80's and worries she can't always do this. - Objective Resuscitation Status - Order Detail: 08/01/18 20:29 Resuscitation Status Routine Resuscitation Status: FULL: Full Resuscitation Vital Signs & Weight: Vital Signs (12 hours) Temp Pulse Resp BP BP Pulse Ox 08/02/18 12:00 97.4 F L 55 L 18 161/74 H 100 08/02/18 08:00 100 08/02/18 07:39 97.4 F L 58 L 17 153/76 H 100 08/02/18 04:00 97.4 F L 67 20 156/85 H 100 Weight Weight 71.894 kg I&O: 08/01/18 08/02/18 08/03/18 06:59 06:59 06:59 Intake Total 600 600 Output Total 3 Balance 597 600 Result Diagrams: 08/02/18 06:23 08/02/18 06:23 Additional Labs: Accuchecks 08/02/18 08/02/18 08/01/18 12:08 04:49 23:04 POC Glucose 111 H 82 95 Phys Exam - Physical Examination Constitutional: NAD HEENT: PERRLA, moist MMs Neck: no nodes, no JVD Respiratory: no wheezing, clear to auscultation bilateral Cardiovascular: RRR, no significant murmur Gastrointestinal: soft, non-tender Musculoskeletal: no edema, pulses present Neurological: non-focal, normal sensation, moves all 4 limbs Lymphatic: no nodes Psychiatric: normal affect, A&O x 3 Skin: no rash, normal turgor, cap refill <2 seconds Dx/Plan (1) Acute kidney injury Code(s): N17.9 - ACUTE KIDNEY FAILURE, UNSPECIFIED Status: Acute Plan: Improved with IV fluids (2) Encephalopathy Code(s): G93.40 - ENCEPHALOPATHY, UNSPECIFIED Status: Resolved Plan: Improved (3) Chronic renal failure, stage 2 (mild) Code(s): N18.2 - CHRONIC KIDNEY DISEASE, STAGE 2 (MILD) Status: Chronic Comment: 1. Stable creatinin 2. continue monitor (4) Diabetes mellitus Code(s): E11.9 - TYPE 2 DIABETES MELLITUS WITHOUT COMPLICATIONS Status: Chronic Qualifiers: Diabetes mellitus type: type 2 Diabetes mellitus long term care phlebotomist insulin use: with skilled nursing use Diabetes mellitus complication status: without complication Qualified Code(s): E11.9 - Type 2 diabetes mellitus without complications; Z79.4 - detention (current) use of insulin; Z79.4 - detention ( current) use of insulin; Z79.4 - detention (current) use of insulin; Z79.4 - long term care pharmacist (current) use of insulin Comment: (5) HIV (human immunodeficiency virus infection) Status: Chronic (6) HTN (hypertension) Code(s): I10 - ESSENTIAL (PRIMARY) HYPERTENSION Status: Chronic Qualifiers: Hypertension type: essential hypertension (7) Pyuria, sterile Code(s): N39.0 - URINARY TRACT INFECTION, SITE NOT SPECIFIED Status: Acute Plan: Awaiting culture results - Plan cont current plan of care Will continue IV fluids, await culture results -: Awaiting CM consultation -: If he continues to improve, dc home tomorrow likely. * . Review of Systems - Medications/Allergies Allergies/Adverse Reactions: Allergies Allergy/AdvReac Type Severity Reaction Status Date / Time No Known Allergies Allergy Verified 07/29/18 01:32 Medications: Current Medications Acetaminophen (Tylenol) 650 mg PO Q4H PRN PRN Reason: Headache/Fever/Mild Pain (1-3) Dextrose/Water (Dextrose 50%) 25 gm SLOW IVP PRN PRN PRN Reason: Hypoglycemia Glucagon (Glucagon) 1 mg IM PRN PRN PRN Reason: Hypoglycemia Dextrose/Water (D5w) 1,000 mls @ 0 mls/hr IV .Q0M PRN PRN Reason: Hypoglycemia Sodium Chloride (1/2 Normal Saline) 1,000 mls @ 100 mls/hr IV .Q10H [facility] Last Admin: 08/02/18 10:55 Dose: 1,000 mls Insulin Human Lispro (Humalog) 0 units SC .MILD SLIDING SCALE PRN PRN Reason: Mild Correctional Scale Metoprolol Tartrate (Lopressor) 25 mg PO BID [facility] Last Admin: 08/02/18 07:58 Dose: 25 mg Raltegravir (Isentress) 400 mg PO BID [facility] Last Admin: 08/02/18 11:01 Dose: 400 mg
[2018-08-03] MEDS: Sodium Chloride 0.45% 1,000 ML IV SCH ×2 (07:20→16:59)
[2018-08-03] MEDS: Metoprolol Tartrate 25 MG TAB PO SCH ×2 (07:35→19:45)
[2018-08-03] MEDS: Raltegravir Potassium 400 MG TAB PO SCH ×2 (10:08→19:45)
[2018-08-03] MEDS: Cefepime 1 GM in Sodium Chloride 0.9% 100 ML IVPB SCH ×2 (10:32→22:39)
[2018-08-03 13:03] LABS: Anion Gap 10 mmol/L (10-20); BUN (Urea Nitrogen) 19 mg/dL (8.4-25.7); Calc. Creatinine Clearance 44 mL/min (70-130); Calcium 8.8 mg/dL (7.8-10.44); Carbon Dioxide 21 mmol/L (23-31); Chloride 107 mmol/L (98-107); Estimated GFR-MDRD 58; Glucose 103 mg/dL (83-110); Potassium 4.3 mmol/L (3.5-5.1); Sodium 134 mmol/L (136-145)
--- NOTE | 2018-08-03 14:20 | PRG ---
DATE OF SERVICE: 08/03/2018 SUBJECTIVE: Mr. Disla is a 78-year-old male with past medical history significant for HIV on chronic antiviral therapy, diabetes mellitus, hypertension, and chronic kidney disease, who presented to the hospital with altered mental status. This is the second admission for the patient recently with apparent altered mental status. Upon my interview this morning, the patient has no physical complaints. He denies any chest pain, shortness of breath, nausea, or vomiting. He does express wishes that he would like to go home, however, he is not oriented to place or time this morning. Urine culture is positive for 10,000-25,000 Pseudomonas aeruginosa. Sensitivities pending. OBJECTIVE: VITAL SIGNS: Blood pressure 128/87. The patient is afebrile at 97.8, O2 saturation is 100% on room air. Pulse is 71. GENERAL: The patient is an gentleman, who appears his stated age, sitting at the edge of the bed. He is in no acute distress. HEENT: Head is atraumatic and normocephalic. His left pupil is irregular and noncircular. This is a known finding. He has lack of dentition and carious lesions in his mouth. NECK: Supple. No obvious lymphadenopathy. Trachea is midline. No JVD. CV: S1 and S2. Regular rate and rhythm. No appreciable murmurs, rubs or gallops. LUNGS: Regular respiratory rate and pattern. Clear to auscultation bilaterally. ABDOMEN: Positive bowel sounds. Soft, nontender. EXTREMITIES: No edema or clubbing. SKIN: There is no obvious rashes or lesions at this time. NEURO: Alert to person, not time or place, Non-focal LABORATORY DATA: Sodium 134, potassium 4.3, BUN 19, creatinine 1.44 which is improved from 2.18 yesterday. As mentioned, urine culture positive for Pseudomonas aeruginosa of 10,000 to 25,000 CFUs per mL. ASSESSMENT: 1. Altered mental status at presentation, questionably exacerbated by underlying urinary tract infection, culture positive for Pseudomonas today, although the patient may also be suffering from some worsening underlying dementia. Alert to person only at the time of my interview. 2. Acute on chronic renal insufficiency, creatinine improved to 1.44 today from 2.7 on arrival. 3. HIV, on antiviral therapy, followed by Dr. Jara. 4. Hypertension. 5. Diabetes mellitus. PLAN: At this point, given the patient's numerous comorbidities and positive urine culture with altered mental status, the patient does meet inpatient criteria. We will start IV cefepime for underlying urinary tract infection. Case Management consult is pending and the patient will likely need discharge planning. Care has been discussed with Dr. Scherer, who agrees with the above. Job ID: [id number] [facility]
[2018-08-04] MEDS: Sodium Chloride 0.45% 1,000 ML IV SCH ×2 (02:29→07:08)
[2018-08-04 06:57] LABS: Anion Gap 9 mmol/L (10-20); BUN (Urea Nitrogen) 15 mg/dL (8.4-25.7); Calc. Creatinine Clearance 51 mL/min (70-130); Calcium 8.6 mg/dL (7.8-10.44); Carbon Dioxide 21 mmol/L (23-31); Chloride 108 mmol/L (98-107); Estimated GFR-MDRD 67; Glucose 72 mg/dL (83-110); Potassium 3.9 mmol/L (3.5-5.1); Sodium 134 mmol/L (136-145)
[2018-08-04] MEDS: Metoprolol Tartrate 25 MG TAB PO SCH (09:13)
[2018-08-04] MEDS: Raltegravir Potassium 400 MG TAB PO SCH (09:13)
[2018-08-04] MEDS: Cefepime 1 GM in Sodium Chloride 0.9% 100 ML IVPB SCH (11:48)
[2018-08-04 12:04] VITALS: BP 180/77; TEMP 97.8
--- NOTE | 2018-08-05 03:04 | DIS ---
DATE OF ADMISSION: 08/03/2018 DATE OF DISCHARGE: 08/04/2018 ADMITTING PHYSICIAN: Dr. Renteria. DICHARGING PHYSICIAN: Dr. Chapa. PRIMARY CARE PHYSICIAN: Dr. Christine Landeros. ADMITTING DIAGNOSES: 1. Altered mental status. 2. Possible urinary tract infection. 3. Diabetes mellitus type 2. 4. AIDS. 5. Hypertension. DISCHARGE DIAGNOSES: 1. Acute metabolic encephalopathy: Resolved. 2. Pseudomonas urinary tract infection. 3. Physical deconditioning: Going home with physical therapy and occupational therapy services. 4. Acute kidney injury: Prerenal. Improving. 5. HIV/AIDS. 6. Diabetes mellitus type 2. 7. Essential hypertension. 8. Anemia of chronic disease. 9. Leukopenia. CONSULTS: None. PROCEDURES: None. SPECIAL IMAGING: CT scan of the brain without contrast. HOSPITAL COURSE: This is a 78-year-old male with history of HIV/AIDS, diabetes, hypertension with frequent admissions to the hospital, who came for confusion. He was admitted with diagnosis as above. His level of mentation is better. The only thing that he cannot recall is the exact date. Due to his hospitalization, he is debilitated, but his son, Oskar, wants to take him home instead of a custodial. On the last admission, we tried to arrange home health services and we will attempt to arrange this services again with added physical therapy and occupational therapy. I expressed my concerns regarding his safety at home, but his son, Oskar is committed to call for help from family members to help with his father's care. He had an abnormal urinalysis that could be potentially consistent with urinary tract infection and culture grew a willadr-sensitive Pseudomonas. He will be treated with 10 more days of Levaquin, although we are also concerned about interactions with his HIV medication. He will be discharged to his son's home today after evaluation by PT and OT. PHYSICAL EXAMINATION: VITAL SIGNS: Blood pressure 142/72, pulse 72, respirations 18, oxygen saturation 99% on room air, temperature 98.1 Fahrenheit. GENERAL: No acute distress. He is awake, alert, and oriented in person, place, and situation, not quite in time. HEAD AND NECK: Pupils are reactive to light. Extraocular muscles are intact. Mucous membranes are moist. NECK: Supple. CARDIOVASCULAR: Rhythm and rate are regular. No audible murmurs, rubs, or gallops. PULMONARY: Clear to auscultation bilaterally. No wheezes, rhonchi, or crackles. ABDOMEN: Soft, nontender, nondistended. Positive bowel sounds. EXTREMITIES: No palpable edema. Pulses are symmetric. Range of motion is intact. SKIN: Generalized pallor. Good moist and turgor. NEUROLOGIC: Cranial nerves 2 through 12 are grossly intact. Deep tendon reflexes are normoreflexic. Muscle strength is 4/5 in the lower extremities. LABORATORY ABNORMALITIES: No CBC today. Chemistry shows a creatinine of 1.2, sodium 134. Urine culture growing Pseudomonas aeruginosa. IMAGING STUDIES: Reviewed. DISCHARGE DISPOSITION: Home with family, home health and PT on OT. DISCHARGE CONDITION: Fair by high risk for readmission. DISCHARGE DIET: Diabetic and low-sodium diet as tolerated. DISCHARGE ACTIVITY: Increased activity as tolerate tolerated. Use assistive device as needed. DISCHARGE MEDICATIONS: See medical reconciliation for details. DISCHARGE INSTRUCTIONS: The patient and son were instructed to return to the emergency department if symptoms worsen. Take his medications as directed and not to miss any appointments. TIME OF DISCHARGE PLANNIN minutes. Job ID: [id number]
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
== END 2018-08-04 15:25 | disposition home health service (06) | DRG 689 ==
LOC: ERS 18:12 → T4-A 21:21 → OBSVTOIN 08-03 12:16
PROVIDERS: ADMIT Internal Medicine; ATTEND Internal Medicine
DX: N39.0 Urinary tract infection, site not specified (principal); G93.41 Metabolic encephalopathy; N17.9 Acute kidney failure, unspecified; B20 Human immunodeficiency virus [HIV] disease; E11.9 Type 2 diabetes mellitus without complications; E78.5 Hyperlipidemia, unspecified; N40.0 Benign prostatic hyperplasia without lower urinary tract symptoms; E11.22 Type 2 diabetes mellitus with diabetic chronic kidney disease; I12.9 Hypertensive chronic kidney disease with stage 1 through stage 4 chronic kidney disease, or unspecified chronic kidney disease; N18.2 Chronic kidney disease, stage 2 (mild); B96.5 Pseudomonas (aeruginosa) (mallei) (pseudomallei) as the cause of diseases classified elsewhere; D63.1 Anemia in chronic kidney disease; D72.819 Decreased white blood cell count, unspecified; Z79.84 Long term (current) use of oral hypoglycemic drugs; Z79.899 Other long term (current) drug therapy
CPT/HCPCS: 36415; 36416; 51701; 80048; 80053; 80306; 80307; 81003; 81015; 82140; 82550; 84484; 85025; 87077; 87086; 87186; 93005; 96360; J0692; J3490

== ENCOUNTER 2018-08-09 19:47 | Observation (INO) | payer MEDICARE, MEDICAID ==
[2018-08-09 21:00] LABS: #Lymphocytes 0.6 thou/uL (1.20-3.40); #Monocytes 0.4 thou/uL (0.11-0.59); %Basophils 0.3 % (0.0-1.0); %Eosinophils 0.9 % (0.0-10.0); %Lymphocytes 11.6 % (21.0-51.0); %Monocytes 8.4 % (0.0-10.0); %Neutrophils 78.8 % (42.0-75.0); Hemoglobin 10.5 g/dL (14.0-18.0); Mean Corpuscular HGB CONC 33.4 g/dL (32.0-36.0); Mean Corpuscular Hemoglobin 30.2 pg (27.0-31.0); Mean Corpuscular Volume 90.5 fL (78.0-98.0); Platelet Count 192 thou/uL (130-400); RBC Distribution Width 12.2 % (11.5-14.5); Red Blood Cell (RBC) Count 3.48 mill/uL (4.70-6.10); White Blood Cell (WBC) Count 5.1 thou/uL (4.8-10.8)
[2018-08-09 21:19] LABS: Acetaminophen Less than 6.0 mcg/mL (10.0-30.0); Alcohol Less than 10 mg/dL (Less than 10); Lipase 64 U/L (8-78); Salicylate Less than 8.0 mg/dL (15.0-30.0)
[2018-08-09 21:20] LABS: ALT (SGPT) 8 U/L (8-55); AST (SGOT) 21 U/L (5-34); Albumin 3.5 g/dL (3.4-4.8); Alkaline Phosphatase 51 U/L (40-150); Anion Gap 10 mmol/L (10-20); BUN (Urea Nitrogen) 26 mg/dL (8.4-25.7); Bilirubin, Total 0.4 mg/dL (0.2-1.2); Calc. Creatinine Clearance 0 mL/min (70-130); Calcium 9.2 mg/dL (7.8-10.44); Carbon Dioxide 22 mmol/L (23-31); Chloride 109 mmol/L (98-107); Estimated GFR-MDRD 31; Globulin 4.7 g/dL (2.4-3.5); Glucose 98 mg/dL (83-110); Potassium 4.2 mmol/L (3.5-5.1); Protein, Total 8.2 g/dL (5.8-8.1); Sodium 137 mmol/L (136-145)
--- NOTE | 2018-08-09 21:48 | RAD ---
PORTABLE CHEST ONE VIEW: Date: 08-09-18 Time: 8:36 p.m. History: Altered mental status. FINDINGS: Comparison made with exam of 07-28-18. The heart size is normal. The lungs are expanded without focal areas of consolidation, pneumothoraces or pleural effusions. IMPRESSION: No acute process. POS: [facility]
--- NOTE | 2018-08-09 21:51 | CT ---
CT HEAD WITHOUT CONTRAST: Technique: Multiple axial tomograms were obtained through the head without IV enhancement. Indication: Mental status change. Comparison: 07-28-[address] FINDINGS: Mild cortical volume loss. Ventricles have normal size and position. There is no evidence of intracra nial mass, hemorrhage, or infarct. No interval change identified. IMPRESSION: No acute process. POS: [facility]
[2018-08-09 22:15] LABS: Bilirubin Small (Negative); Blood, Urine Small (Negative); Clarity TURBID (Clear); Glucose, Urine (Dipstick) Negative (Negative); Leukocyte Large (Negative); Nitrite Negative (Negative); Protein, Urine (Dipstick) 300 mg/dL (Neg-Trace); Specific Gravity, Urine 1.016 (1.002-1.036)
[2018-08-09 22:17] LABS: Bacteria/HPF None Seen HPF (None Seen); Squamous Epithelial 0-3 HPF (0-3)
[2018-08-09 22:18] LABS: Pathc Cast-AUWi Flag 10.45 (0-2.49)
[2018-08-09 22:23] LABS: Hyaline Casts/LPF 4-6 HYALINE CAST LPF (0-3 Hyaline); Yeast-All Forms None Seen HPF (None Seen)
[2018-08-09 22:25] LABS: Amphetamine Not Detected (NotDetected); Barbiturates Screen Not Detected (NotDetected); Benzodiazepine Screen Not Detected (NotDetected); Cocaine Metabolite Screen Not Detected (NotDetected); Medtox Control Line Valid? VALID (VALID); Medtox Reader # READER 1; Methadone Not Detected (NotDetected); Methamphetamine Not Detected (NotDetected); Opiate Screen Not Detected (NotDetected); Oxycodone Screen Not Detected (NotDetected); Phencyclidine (PCP) Not Detected (NotDetected); THC/Cannabinoid Screen Not Detected (NotDetected); Tricyclic Screen Not Detected (NotDetected)
[2018-08-09] MEDS ORDERED: Acetaminophen 325 MG TAB PO PRN (23:51)
[2018-08-09 23:56] VITALS: BMI 22.9
[2018-08-10] MEDS ORDERED: Dextrose 50% Abboject 50 ML SYRINGE ONE (02:38)
[2018-08-10] MEDS: Dextrose 5% in Water 1,000 ML IV SCH ×2 (03:02→16:30)
[2018-08-10] MEDS ORDERED: Dextrose 5% in Water 1,000 ML IV PRN (08:17)
[2018-08-10] MEDS ORDERED: Dextrose 50% Abboject 50 ML SYRINGE SLOW IVP PRN (08:17)
[2018-08-10] MEDS ORDERED: HumaLOG 300 UNITS/3 ML VIAL SC PRN ×2 (08:17)
[2018-08-10 08:47] LABS: #Eosinphils 0.1 thou/uL (0.0-0.7); #Lymphocytes 0.7 thou/uL (1.20-3.40); #Monocytes 0.6 thou/uL (0.11-0.59); #Neutrophils 3.8 thou/uL (1.40-6.50); %Basophils 0.6 % (0.0-1.0); %Eosinophils 1.2 % (0.0-10.0); %Lymphocytes 13.1 % (21.0-51.0); %Monocytes 10.6 % (0.0-10.0); %Neutrophils 74.4 % (42.0-75.0); Hemoglobin 10.8 g/dL (14.0-18.0); Mean Corpuscular HGB CONC 34.1 g/dL (32.0-36.0); Mean Corpuscular Hemoglobin 30.4 pg (27.0-31.0); Mean Corpuscular Volume 89.3 fL (78.0-98.0); Mean Platelet Volume 7.4 fL (7.4-10.4); Platelet Count 219 thou/uL (130-400); Red Blood Cell (RBC) Count 3.54 mill/uL (4.70-6.10); White Blood Cell (WBC) Count 5.2 thou/uL (4.8-10.8)
[2018-08-10] MEDS: Fluconazole 100 MG TAB PO SCH (08:59)
[2018-08-10] MEDS: Ezetimibe 10 MG TAB PO SCH (08:59)
[2018-08-10] MEDS: Amlodipine 10 MG TAB PO SCH (08:59)
[2018-08-10] MEDS: Tamsulosin HCl 0.4 MG CAP PO SCH (08:59)
[2018-08-10 09:04] LABS: Anion Gap 10 mmol/L (10-20); BUN (Urea Nitrogen) 22 mg/dL (8.4-25.7); Calc. Creatinine Clearance 33 mL/min (70-130); Calcium 9.2 mg/dL (7.8-10.44); Carbon Dioxide 22 mmol/L (23-31); Chloride 110 mmol/L (98-107); Estimated GFR-MDRD 42; Glucose 63 mg/dL (83-110); Potassium 3.9 mmol/L (3.5-5.1); Sodium 138 mmol/L (136-145)
[2018-08-11] MEDS: Dextrose 5% in Water 1,000 ML IV SCH ×2 (05:19→19:01)
[2018-08-11 06:38] LABS: #Eosinphils 0.1 thou/uL (0.0-0.7); #Lymphocytes 0.8 thou/uL (1.20-3.40); #Monocytes 0.5 thou/uL (0.11-0.59); #Neutrophils 2.2 thou/uL (1.40-6.50); %Basophils 0.4 % (0.0-1.0); %Eosinophils 3.7 % (0.0-10.0); %Lymphocytes 21.5 % (21.0-51.0); %Monocytes 14.4 % (0.0-10.0); Hemoglobin 9.8 g/dL (14.0-18.0); Mean Corpuscular HGB CONC 32.4 g/dL (32.0-36.0); Mean Corpuscular Hemoglobin 29.1 pg (27.0-31.0); Mean Corpuscular Volume 89.9 fL (78.0-98.0); Mean Platelet Volume 7.2 fL (7.4-10.4); Platelet Count 194 thou/uL (130-400); RBC Distribution Width 12.3 % (11.5-14.5); Red Blood Cell (RBC) Count 3.35 mill/uL (4.70-6.10); White Blood Cell (WBC) Count 3.6 thou/uL (4.8-10.8)
[2018-08-11 06:59] LABS: Anion Gap 8 mmol/L (10-20); BUN (Urea Nitrogen) 15 mg/dL (8.4-25.7); Calc. Creatinine Clearance 42 mL/min (70-130); Calcium 8.7 mg/dL (7.8-10.44); Carbon Dioxide 21 mmol/L (23-31); Chloride 107 mmol/L (98-107); Estimated GFR-MDRD 56; Glucose 86 mg/dL (83-110); Potassium 4.3 mmol/L (3.5-5.1); Sodium 132 mmol/L (136-145)
--- NOTE | 2018-08-11 08:17 | HP ---
PRIMARY CARE PHYSICIAN: Christine Landeros MD CHIEF COMPLAINT: Altered mental status. HISTORY OF PRESENT ILLNESS: Mr. Disla is a 78-year-old male with past medical history of diabetes mellitus, hypertension, hyperlipidemia, BPH, HIV, who had presented to [facility] for an altered mental status. The patient was recently discharged from the hospital due to similar complaints on 08/04/2018, he was treated for urinary tract infection; however, urine culture showed Pseudomonas, which was not significant. He was sent home with Levaquin 500 mg p.o. daily for 10 days prior to symptoms starting. The patient's caregiver noticed the patient was not acting himself over the last 2 days. Therefore, she had brought him into the ED for further evaluation. During the patient's initial workup, he underwent a portable chest x-ray, which showed no acute process. CT head without contrast showed no acute process. Urinalysis did show signs of UTI with large leukocyte esterase, greater than 50 WBCs, small blood, and 300 protein. It also showed possible acute kidney injury with a creatinine of 2.44. Urine was sent for urine culture, he had been placed on the medical floor overnight, he was started on IV fluid hydration with D5W. His creatinine improved overnight to 1.99 with an estimated GFR of 42. Glucose on admission was also found to be low at 46, he was treated with amp of D50. This had improved until this morning, where it dropped again to 58 and was treated successfully with D50 amp again. Last glucose check showed 140. He usually takes metformin and glimepiride at home; however, these have been on hold since he has been here due to his history of being hypoglycemic. He denied any fever, chills, any headache, blurred vision, or dizziness. He denied any chest pain, palpitation, shortness of breath, abdominal pain, nausea, or vomiting. Mentation morris, the patient appeared to be at his baseline, CT of head did show mild cortical volume loss. Ventricles have normal size and position. It was determined that the patient be admitted under observation with also continued monitoring for his hypoglycemia and his UTI. Urine culture showed no growth at 12 hours, blood cultures also showing no growth. Dr. Beltrán was consulted for further evaluation due to the patient's underlying HIV history, Dr. Beltrán then recommended oral Levaquin or Cipro for an additional 14 days. REVIEW OF SYSTEMS: All other systems reviewed and found to be negative unless mentioned in the HPI. PAST MEDICAL HISTORY: Significant for diabetes mellitus type 2, noncompliant with treatment regimen, hyperlipidemia, hypertension, HIV, and chronic pyuria. PAST SURGICAL HISTORY: The patient denies any history of surgical history. SOCIAL HISTORY: The patient is apparently living on his own, he states that he has a caregiver; however, denies any alcohol, tobacco, or illicit drug use. KNOWN ALLERGIES: No known drug allergies. CURRENT HOME MEDICATIONS: 1. Metformin 500 mg p.o. b.i.d. 2. Tamsulosin 0.4 mg p.o. daily. 3. Bactrim DS 1 tablet p.o. daily. 4. Metoprolol 25 mg p.o. daily. 5. Lisinopril 20 mg p.o. daily. 6. Fluconazole 200 mg oral once daily. 7. Amlodipine 10 mg oral once daily. 8. Zetia 10 mg p.o. daily. 9. Levothyroxine 500 mg p.o. daily. 10. Cefdinir 300 mg p.o. b.i.d. 11. Glimepiride 2 mg 1 tablet oral b.i.d. PHYSICAL EXAMINATION: VITAL SIGNS: Blood pressure 138/81, pulse 77, respirations 16, temperature 98 degrees Fahrenheit, O2 saturations 100% on room air. GENERAL: The patient is awake, alert, and oriented x3. He is sitting up in bed eating his breakfast and in no acute distress at this time. HEENT: Atraumatic, normocephalic. Pupils are round and reactive to light. Extraocular muscles intact. Moist mucous membranes noted. NECK: Soft, supple, no JVD. Trachea midline. CARDIOVASCULAR: Positive S1 and S2. Regular rate and rhythm noted. LUNGS: Clear to auscultation bilaterally. No wheezes, rales, or rhonchi. ABDOMEN: Soft, nontender, nondistended. Bowel sounds present. EXTREMITIES: There is no cyanosis, clubbing, or edema. Moves all extremities equal. NEUROLOGIC: Cranial nerves 2 through 12 grossly intact. No focal deficits noted. PSYCHIATRIC: Good mood and affect. LABORATORY DATA: WBC 5.2, RBC 3.54, hemoglobin 10.8, platelet 219. Sodium 138, potassium 3.9, chloride 110, carbon dioxide 22, anion gap 10, BUN 22, creatinine 1.91, estimated GFR 42, glucose 140. AST 21, ALT 8. Troponin 0.017. Lipase 64. TSH 0.3638. DIAGNOSTIC IMAGING: CT brain without contrast showed mild cortical volume loss. The ventricles have normal size and position. There is no evidence of intracranial mass, hemorrhage or infarct. No interval change identified, with no acute process. Portable chest x-ray showed no acute process. ASSESSMENT AND PLAN: 1. Altered mental status, this can be likely secondary to hypoglycemia, his home metformin and his glimepiride will be held, he will be started on insulin sliding scale mild dose with also frequent Accu-Cheks. He has required D5W IV fluids along with a couple amps of D50 for low blood glucose. 2. Acute on chronic pyuria, urine culture showing no growth at 12 hours, case was also discussed with Dr. Beltrán, who had recommended the patient's current home prophylactic antibiotics at this time. He had also recommended continuing on oral Levaquin/ciprofloxacin for an additional 14 days. He had determined a ciprofloxacin dose of 250 mg p.o. b.i.d. 3. Acute on chronic kidney disease stage 3, monitor BMP closely and recheck in the morning. This has so far improved since admission, creatinine went from 2.44 down to 1.91 overnight. 4. History of hypertension. Continue home regimen. 5. Hyperlipidemia. Continue home regimen. 6. History of human immunodeficiency viruses. Continue home regimen. 7. Deep venous thrombosis and gastrointestinal prophylaxis. 8. Code status, full code. DISPOSITION: Pending further workup and clinical findings. Job ID: [id number]
[2018-08-11] MEDS: Ezetimibe 10 MG TAB PO SCH (08:23)
[2018-08-11] MEDS: Fluconazole 100 MG TAB PO SCH (08:23)
[2018-08-11] MEDS: Tamsulosin HCl 0.4 MG CAP PO SCH (08:24)
--- NOTE | 2018-08-11 08:28 | CON ---
DATE OF CONSULTATION: 08/10/2018 REASON FOR CONSULTATION: Altered mental status, abnormal urinalysis and culture , and HIV seropositive status. HISTORY OF PRESENT ILLNESS: A 78-year-old, whom I had seen in the recent past when he presented with a history of longstanding HIV infection, previously on Atripla , but poorly controlled viral load. Also, type 2 diabetes, hypertension, hyperlipidemia, and BPH. He was seen in March 2017 and at that time, there was some concerns about his ability to care for self. He did have extensive evaluation including CMV DNA PCR which was negative. The HIV viral load was high and CD4 cell count was in the 50s. The cryptococcus antigen in the CSF was negative. After discharge, the patient never showed up in the clinic and it is not clear where he is obtaining his treatment for his HIV infection. At this time, he was readmitted after being in the hospital just a few days ago on the when he presented with altered mental status. The discharge summary is from August 05 four days after admission and the altered mental status was ascribed to urinary tract infection. He improved during the hospital stay and was discharged on Omnicef; although, the organism isolated in urinary tract was Pseudomonas aeruginosa which is not sensitive to that antimicrobial. He is readmitted now just 5 days after the previous discharge with again altered mental status changes. He did not know why he came to the hospital. Apparently his son activated the EMS and he was brought over. Initial findings included BP 140/72, pulse 61, respirations 17, temperature 98.4, O2 saturation 100. The patient appeared nontoxic, pain-free, alert and stated oriented to person, place, and time. Overall exam was not particularly remarkable. INITIAL LABORATORY DATA: At this time demonstrated white cell count 5.1, hemoglobin 10.5, platelets 192 with 78% neutrophils, total lymphocyte count 600. Sodium 138 , creatinine 1.91. Liver profile within normal limits, albumin 3.5, globulin 4.7. Urinalysis with greater than 50 wbc's. Microbiology thus far with urine culture no growth at 12 hours. Blood cultures 2 sets, no growth. Chest x-ray with no acute process. Currently, Mr. Disla is awake. He is not very happy to be interviewed again and he does not respond to questions and I could not really get a good sense of his orientation. He basically denied any symptoms at this point in time, specifically denied any genitourinary symptoms. PAST MEDICAL HISTORY: Includes longstanding HIV infection with poor adherence to anti-retroviral therapy, altered mental status, BPH, type 2 diabetes, hypertension, and hyperlipidemia. PAST SURGICAL HISTORY: Cataract removal and foot surgery. SOCIAL HISTORY: Lives with a friend in [place]. FAMILY HISTORY: Hypertension. ALLERGIES: NONE. MEDICATIONS: 1. Genvoya. 2. Bactrim. Currently he is receiving; 1. Norvasc. 2. Dextrose. 3. Zetia. 4. Diflucan. 5. Humalog insulin. 6. Levaquin. 7. Toprol flush. 8. Flomax. OBJECTIVE: VITAL SIGNS: He has been afebrile during the hospital stay. BP 115/ 78, pulse 74, respirations 18, O2 saturation 100. GENERAL: Appears in no distress, but somewhat cantankerous, does not want to be interviewed. I could not identify any obvious skin lesions, short and very small one in the gluteal region, very shallow, peripheral IV access. The patient is voiding spontaneously in the urinal. No lymphadenopathy. HEENT: Ocular movements conjugate. Oral cavity with quite a few teeth in place with fairly decent shape. NECK: Supple. No jugular vein distention. No carotid bruits. No thyromegaly. LUNGS: Symmetric. Clear breath sounds. HEART: S1, S2. Regular rate with a soft aortic murmur. ABDOMEN: Soft. Not distended or tender. No ascites. No bladder distention. No genital abnormalities. MUSCULOSKELETAL: No joint inflammatory activity. Pulses 1+ in dorsalis pedis. NEUROLOGICAL: Cognitive. Able to move all extremities equally. He is awake, knows his name. He knew he was in [facility], could not tell me the date, not very willing to be interviewed. LABORATORY DATA: The latest white cell count 5.2, hemoglobin 10.8, platelets 219, and creatinine is down to 1.91, GFR 42. Urinalysis greater than 50 wbc's. Microbiology has been discussed above. ASSESSMENT: 1. Longstanding human immunodeficiency virus infection with poor adherence to anti-retroviral therapy and a markedly decreased CD4 cell count, at risk for various opportunistic infectious process. 2. Possible dementia. 3. Recurrent episodes of worsening mental state with concern for invasive urinary tract infection. DISCUSSION: The main issue here is inability to care for self, as well as at the same time that he resists any help from other persons in his life in maintaining proper adherence to his treatment. He continues to display high viremia and low CD4 cell count and the prognosis is very poor and eventually if you already does not have it, we will develop an opportunistic infectious or neoplastic process. He may already have a not yet disclosed opportunistic process. He already had a CSF eval in 2017 and at this point would repeat cryptococcus neoformans antigen serum test and syphilis serology for now. Soon will become available in parenteral anti-retroviral therapy which will allow once monthly administration of a depot preparation, but that is not available at this moment in time. The resistance assays submitted in 17 did not show any resistance to any medication and I think we could continue with an integrase inhibitor and I would prefer to switch him to Biktarvy because there is less likelihood of resistance to the integrase component. It also allows administration with creatinine clearance down to 30, while Genvoya. Job ID: [id number] MTDD
--- NOTE | 2018-08-11 15:35 | PDOC.PN ---
- Subjective Encounter Start Date: 08/11/18 Encounter Start Time: 15:33 Patient lying in bed, he reports feeling better today. He denies any chest pain , palpitations, shortness of breath or abdominal pain. He reports appetite better today and his blood sugars stable. He reports not getting out of bed while he has been here. - Objective MAR Reviewed: Yes Vital Signs & Weight: Vital Signs (12 hours) Temp Pulse Resp BP Pulse Ox 08/11/18 12:23 97.5 F L 68 16 118/73 100 08/11/18 07:26 98.9 F 83 16 112/65 99 08/11/18 04:03 98.3 F 67 18 104/46 L 99 Weight Weight 155 lb 4.8 oz I&O: 08/10/18 08/11/18 08/12/18 06:59 06:59 06:59 Intake Total 600 1900 450 Balance 600 1900 450 Result Diagrams: 08/11/18 06:23 08/11/18 06:23 Additional Labs: Accuchecks 08/11/18 08/11/18 08/10/18 12:21 05:24 20:58 POC Glucose 161 H 82 124 H 08/10/18 16:45 POC Glucose 140 H Radiology Reviewed by me: Yes Phys Exam - Physical Examination Constitutional: NAD HEENT: moist MMs, oral pharynx no lesions Poor oral hygiene Neck: supple Respiratory: no wheezing, clear to auscultation bilateral Cardiovascular: RRR, no rub Gastrointestinal: soft, no distention, positive bowel sounds Musculoskeletal: pulses present Neurological: non-focal, moves all 4 limbs Lymphatic: no nodes Psychiatric: normal affect, A&O x 3 Skin: no rash, cap refill <2 seconds Dx/Plan (1) Pyuria, sterile Code(s): N39.0 - URINARY TRACT INFECTION, SITE NOT SPECIFIED Status: Acute (2) Chronic renal failure, stage 2 (mild) Code(s): N18.2 - CHRONIC KIDNEY DISEASE, STAGE 2 (MILD) Status: Chronic Comment: 1. Stable creatinin 2. continue monitor (3) Diabetes mellitus Code(s): E11.9 - TYPE 2 DIABETES MELLITUS WITHOUT COMPLICATIONS Status: Chronic Qualifiers: Diabetes mellitus type: type 2 Diabetes mellitus parts counterman insulin use: with prison use Diabetes mellitus complication status: without complication Qualified Code(s): E11.9 - Type 2 diabetes mellitus without complications; Z79.4 - custodial (current) use of insulin; Z79.4 - terminal worker ( current) use of insulin; Z79.4 - custodial (current) use of insulin; Z79.4 - terminal worker (current) use of insulin Comment: (4) Dyslipidemia Code(s): E78.5 - HYPERLIPIDEMIA, UNSPECIFIED Status: Chronic (5) HIV (human immunodeficiency virus infection) Status: Chronic (6) HTN (hypertension) Code(s): I10 - ESSENTIAL (PRIMARY) HYPERTENSION Status: Chronic Qualifiers: Hypertension type: essential hypertension - Plan cont current plan of care, continue antibiotics * Continue abx at this time considering patient underlying HIV hx * Dr Beltrán following and recommending possible changes to home HIV regimen * Due to patient not getting out of bed much while he is here will consult walking program * Blood sugars improved today, more appetite, but he has not required insulin sliding scale or any coverage. He may benefit from d/c off diabetic medications due to risk of hypoglycemia.
--- NOTE | 2018-08-11 17:53 | PRG ---
DATE OF SERVICE: 08/11/2018 SUBJECTIVE: Mr. Disla is awake. His son is in the room with him. He could not again answer me any proper questions with accurate answers. His recollection is very poor and he does not even understand what is going on with his health. At this point in time, he denies any headaches. No shortness of breath or cough. No abdominal pain. No diarrhea. OBJECTIVE: VITAL SIGNS: T-max 98.9, blood pressure 120/75, pulse 69, respirations 16, and O2 saturation 100%. GENERAL: Appears in no distress. HEENT: Ocular movements conjugate. Oral cavity normal. NECK: Supple. LUNGS: Symmetric, clear breath sounds. HEART: S1 and S2, regular rate. ABDOMEN: Soft, not distended or tender. No ascites. No bladder distention. LABORATORY DATA: White cell count 3.6, hemoglobin 9.8, platelets 194, 60% neutrophils. Sodium 132, creatinine 1.49, which is lower than admission. CD4 cell count is pending. ASSESSMENT AND DISCUSSION: Longstanding human immunodeficiency virus infection with advanced immunosuppression associated with dementia, inability to care for self, inability to take his medications. The patient does not live in a safe environment and I do not think he should be discharged back home since that will likely result in a poor outcome and readmission in a very short term. The patient will not be able to voluntarily be admitted to a long term and may have to be committed the assistance of Adult Protective Services. In the meantime, we will resume anti-retroviral therapy with something that can be taken without the need to adjust for renal function. I have also given him prophylaxis for Pneumocystis with oral Bactrim dose adjusted. Waiting on cryptococcus ag and syphilis serology results. Job ID: [id number] [facility]
[2018-08-11] MEDS: Amlodipine 10 MG TAB PO SCH (18:47)
[2018-08-11] MEDS: Raltegravir Potassium 400 MG TAB PO SCH (20:45)
[2018-08-12 06:47] LABS: #Eosinphils 0.1 thou/uL (0.0-0.7); #Lymphocytes 0.6 thou/uL (1.20-3.40); #Monocytes 0.4 thou/uL (0.11-0.59); #Neutrophils 2.2 thou/uL (1.40-6.50); %Eosinophils 2.8 % (0.0-10.0); %Lymphocytes 18.8 % (21.0-51.0); %Monocytes 11.3 % (0.0-10.0); Hemoglobin 9.5 g/dL (14.0-18.0); Mean Corpuscular Volume 91.1 fL (78.0-98.0); Mean Platelet Volume 7.3 fL (7.4-10.4); Platelet Count 185 thou/uL (130-400); RBC Distribution Width 12.4 % (11.5-14.5); Red Blood Cell (RBC) Count 3.06 mill/uL (4.70-6.10); White Blood Cell (WBC) Count 3.3 thou/uL (4.8-10.8)
[2018-08-12] MEDS: Dextrose 5% in Water 1,000 ML IV SCH (07:00)
[2018-08-12 07:08] LABS: Anion Gap 11 mmol/L (10-20); BUN (Urea Nitrogen) 15 mg/dL (8.4-25.7); Calc. Creatinine Clearance 44 mL/min (70-130); Calcium 8.8 mg/dL (7.8-10.44); Carbon Dioxide 21 mmol/L (23-31); Chloride 105 mmol/L (98-107); Estimated GFR-MDRD 58; Glucose 138 mg/dL (83-110); Potassium 4.7 mmol/L (3.5-5.1); Sodium 132 mmol/L (136-145)
[2018-08-12] MEDS ORDERED: Sulfameth/Trimethoprim SS 400-80MG TAB PO SCH (09:00)
[2018-08-12] MEDS: Ezetimibe 10 MG TAB PO SCH (09:11)
[2018-08-12] MEDS: Fluconazole 100 MG TAB PO SCH (09:11)
[2018-08-12] MEDS: Raltegravir Potassium 400 MG TAB PO SCH (09:11)
[2018-08-12] MEDS: Amlodipine 10 MG TAB PO SCH (09:11)
[2018-08-12] MEDS: Tamsulosin HCl 0.4 MG CAP PO SCH (09:11)
[2018-08-12 09:22] LABS: Syphilis Antibody Nonreactive (Nonreactive); Syphilis Antibody Index 0.17 S/CO (<1.00 Non-Reactive)
[2018-08-12 11:35] VITALS: BP 114/70; TEMP 99
[2018-08-13 14:12] LABS: %CD4 (Helper/Inducer) 13.6 % (30.8-58.5); Absolute CD4 82 /uL (359-1519); Lymphocytes/Gated Cell Count 0.6 x10E3/uL (0.7-3.1); Total Lymphocyte 15 % (Not Estab.); WBC Total Count 3.8 x10E3/uL (3.4-10.8)
[2018-08-14 18:08] LABS: LOG10 HIV-1 RNA 5.537 (.)
== END 2018-08-12 15:17 | disposition home or self-care (01) ==
LOC: ERS 19:47 → SURG A 22:14
PROVIDERS: ADMIT Hospitalist; ATTEND Hospitalist
DX: R41.82 Altered mental status, unspecified (principal); I12.9 Hypertensive chronic kidney disease with stage 1 through stage 4 chronic kidney disease, or unspecified chronic kidney disease; N18.3 Chronic kidney disease, stage 3 (moderate); E11.22 Type 2 diabetes mellitus with diabetic chronic kidney disease; N17.9 Acute kidney failure, unspecified; E78.5 Hyperlipidemia, unspecified; N40.0 Benign prostatic hyperplasia without lower urinary tract symptoms; N39.0 Urinary tract infection, site not specified; Z21 Asymptomatic human immunodeficiency virus [HIV] infection status; Z79.84 Long term (current) use of oral hypoglycemic drugs; Z79.899 Other long term (current) drug therapy; Z91.14 Patient's other noncompliance with medication regimen
CPT/HCPCS: 51701; 70450; 71045; 80048 ×3; 80306; 80307; 82962 ×4; 83690; 84484; 85025 ×3; 85048; 86361; 86780; 87040; 87086; 87536; 87899; 93005; 94760; 96361 ×3; 96374; 96376; 97139 ×2; 99285; G0378 ×3; 36415; 36416; 80053; 81003; 81015; 84443

== ENCOUNTER 2018-12-03 19:28 | Emergency (ER) | payer MEDICARE, OTHER ==
[2018-12-03 20:21] LABS: #Eosinphils 0.3 thou/uL (0.0-0.7); #Lymphocytes 0.8 thou/uL (1.20-3.40); #Monocytes 0.4 thou/uL (0.11-0.59); #Neutrophils 3.3 thou/uL (1.40-6.50); %Basophils 0.3 % (0.0-1.0); %Lymphocytes 16.7 % (21.0-51.0); %Monocytes 7.3 % (0.0-10.0); %Neutrophils 68.6 % (42.0-75.0); Hemoglobin 10.2 g/dL (14.0-18.0); Mean Corpuscular HGB CONC 34.1 g/dL (32.0-36.0); Mean Corpuscular Hemoglobin 32.8 pg (27.0-31.0); Mean Corpuscular Volume 96.4 fL (78.0-98.0); Mean Platelet Volume 6.7 fL (7.4-10.4); Platelet Count 177 thou/uL (130-400); Red Blood Cell (RBC) Count 3.11 mill/uL (4.70-6.10); White Blood Cell (WBC) Count 4.8 thou/uL (4.8-10.8)
[2018-12-03 20:43] LABS: ALT (SGPT) 12 U/L (8-55); AST (SGOT) 17 U/L (5-34); Albumin 3.6 g/dL (3.4-4.8); Alkaline Phosphatase 67 U/L (40-150); Anion Gap 13 mmol/L (10-20); BUN (Urea Nitrogen) 20 mg/dL (8.4-25.7); Bilirubin, Total 0.3 mg/dL (0.2-1.2); Calc. Creatinine Clearance 0 mL/min (70-130); Calcium 8.9 mg/dL (7.8-10.44); Carbon Dioxide 24 mmol/L (23-31); Chloride 107 mmol/L (98-107); Estimated GFR-MDRD 33; Globulin 4.7 g/dL (2.4-3.5); Glucose 95 mg/dL (83-110); Lipase 50 U/L (8-78); Potassium 3.7 mmol/L (3.5-5.1); Protein, Total 8.3 g/dL (5.8-8.1); Sodium 140 mmol/L (136-145)
--- NOTE | 2018-12-05 12:08 | EKG ---
Test Reason : Blood Pressure : / mmHG Vent. Rate : 054 BPM Atrial Rate : 054 BPM P-R Int : 000 ms QRS Dur : 094 ms QT Int : 446 ms P-R-T Axes : 000 036 047 degrees QTc Int : 422 ms Sinus rhythm with 1st degree AV block Abnormal ECG Confirmed by LEATHA MERINO MD ([id number]), magazine editor NICOLE CASTILLO ([id number]) on 12/05/2018 12:07:51 PM Referred By: Confirmed By:LEATHA MERINO MD
== END 2018-12-03 23:41 | disposition home or self-care (01) ==
LOC: ERS 19:28
DX: E11.649 Type 2 diabetes mellitus with hypoglycemia without coma (principal); E78.5 Hyperlipidemia, unspecified; I10 Essential (primary) hypertension; Z79.84 Long term (current) use of oral hypoglycemic drugs; Z79.899 Other long term (current) drug therapy
CPT/HCPCS: 36415; 36416; 80053; 83690; 84484; 85025; 93005

== ENCOUNTER 2018-12-28 22:05 | Emergency (ER) | payer MEDICARE, MEDICAID ==
[2018-12-28] MEDS ORDERED: Dextrose 50% Abboject 50 ML SYRINGE ONE (22:18)
[2018-12-28 22:43] LABS: #Lymphocytes 1.5 thou/uL (1.20-3.40); #Neutrophils 4.9 thou/uL (1.40-6.50); %Basophils 0.3 % (0.0-1.0); %Eosinophils 6.6 % (0.0-10.0); %Monocytes 8.8 % (0.0-10.0); %Neutrophils 64.2 % (42.0-75.0); Hemoglobin 10.7 g/dL (14.0-18.0); Mean Corpuscular HGB CONC 33.6 g/dL (32.0-36.0); Mean Corpuscular Hemoglobin 32.6 pg (27.0-31.0); Mean Corpuscular Volume 97.1 fL (78.0-98.0); Mean Platelet Volume 6.5 fL (7.4-10.4); Platelet Count 250 thou/uL (130-400); RBC Distribution Width 12.1 % (11.5-14.5); Red Blood Cell (RBC) Count 3.26 mill/uL (4.70-6.10); White Blood Cell (WBC) Count 7.6 thou/uL (4.8-10.8)
[2018-12-28 22:44] LABS: #Eosinphils 0.5 thou/uL (0.0-0.7); #Monocytes 0.7 thou/uL (0.11-0.59)
--- NOTE | 2018-12-28 22:55 | CT ---
EXAM: CT brain without contrast HISTORY: Mental status changes COMPARISON: 08/09/2018 TECHNIQUE: Multiple contiguous axial images were obtained and a CT of the brain without contrast. FINDINGS: There are scattered hypodensities in the subcortical and periventricular white matter consi stent with small vessel ischemic disease. There is no evidence of hydrocephalus, intracranial hemorrhage, or extra-axial fluid collection. The calvarium and overlying soft tissues are unremarkable. The visualized paranasal sinuses and masto id air cells are well aerated. IMPRESSION: No evidence of acute intracranial abnormality
--- NOTE | 2018-12-28 22:56 | RAD ---
EXAM: Single view of the chest HISTORY: Altered mental status COMPARISON: 08/09/2018 FINDINGS: Single view of the chest shows a normal sized cardiomediastinal silhouette. There is no tavia dence of consolidation, mass, or pleural effusion. The bones are unremarkable. IMPRESSION: No evidence of acute cardiopulmonary disease
[2018-12-28 23:07] LABS: ALT (SGPT) 7 U/L (8-55); AST (SGOT) 11 U/L (5-34); Albumin 3.9 g/dL (3.4-4.8); Alkaline Phosphatase 83 U/L (40-150); Anion Gap 10 mmol/L (10-20); BUN (Urea Nitrogen) 21 mg/dL (8.4-25.7); Bilirubin, Total 0.3 mg/dL (0.2-1.2); CK (CPK) 120 U/L (30-200); Calc. Creatinine Clearance 0 mL/min (70-130); Calcium 9.3 mg/dL (7.8-10.44); Carbon Dioxide 25 mmol/L (23-31); Chloride 105 mmol/L (98-107); Estimated GFR-MDRD 32; Globulin 4.7 g/dL (2.4-3.5); Lipase 39 U/L (8-78); Potassium 4.4 mmol/L (3.5-5.1); Protein, Total 8.6 g/dL (5.8-8.1); Sodium 136 mmol/L (136-145)
[2018-12-28 23:11] LABS: Acetaminophen Less than 6.0 mcg/mL (10.0-30.0); Alcohol Less than 10 mg/dL (Less than 10); Salicylate Less than 8.0 mg/dL (15.0-30.0)
[2018-12-28 23:14] LABS: Glucose 44 mg/dL (83-110)
--- NOTE | 2019-01-02 12:01 | EKG ---
Test Reason : Blood Pressure : / mmHG Vent. Rate : 068 BPM Atrial Rate : 068 BPM P-R Int : 254 ms QRS Dur : 094 ms QT Int : 404 ms P-R-T Axes : 087 046 060 degrees QTc Int : 429 ms Sinus rhythm with 1st degree A-V block with Premature atrial complexes Otherwise normal ECG Confirmed by EDUARDO RAYMUNDO, DOLLY ([id number]), newspaper editor managing NICOLE CASTILLO ([id number]) on 01/02/2019 12:00:36 PM Referred By: Confirmed By:DOLLY CLARK MD
== END 2018-12-29 | disposition home or self-care (01) ==
LOC: ERS 22:05
DX: E11.649 Type 2 diabetes mellitus with hypoglycemia without coma (principal); E78.5 Hyperlipidemia, unspecified; E78.00 Pure hypercholesterolemia, unspecified; I10 Essential (primary) hypertension; B20 Human immunodeficiency virus [HIV] disease; Z79.899 Other long term (current) drug therapy; Z79.84 Long term (current) use of oral hypoglycemic drugs
CPT/HCPCS: 36415; 36416; 70450; 71045; 80053; 80307; 82140; 82550; 83690; 83880; 84484; 85025; 93005; 96374

== ENCOUNTER 2018-12-29 06:07 | Observation (INO) | payer MEDICARE, MEDICAID ==
[2018-12-29 06:46] LABS: #Eosinphils 0.3 thou/uL (0.0-0.7); #Lymphocytes 0.9 thou/uL (1.20-3.40); #Monocytes 0.7 thou/uL (0.11-0.59); #Neutrophils 4.5 thou/uL (1.40-6.50); %Basophils 0.3 % (0.0-1.0); %Lymphocytes 13.9 % (21.0-51.0); %Monocytes 10.4 % (0.0-10.0); %Neutrophils 70.4 % (42.0-75.0); Hemoglobin 9.9 g/dL (14.0-18.0); Mean Corpuscular HGB CONC 33.7 g/dL (32.0-36.0); Mean Corpuscular Hemoglobin 32.6 pg (27.0-31.0); Mean Corpuscular Volume 96.9 fL (78.0-98.0); Mean Platelet Volume 6.2 fL (7.4-10.4); Platelet Count 232 thou/uL (130-400); Red Blood Cell (RBC) Count 3.05 mill/uL (4.70-6.10); White Blood Cell (WBC) Count 6.3 thou/uL (4.8-10.8)
[2018-12-29 07:07] LABS: ALT (SGPT) Less than 7 U/L (8-55); AST (SGOT) 11 U/L (5-34); Albumin 3.4 g/dL (3.4-4.8); Alkaline Phosphatase 68 U/L (40-150); Anion Gap 7 mmol/L (10-20); BUN (Urea Nitrogen) 18 mg/dL (8.4-25.7); Bilirubin, Total 0.2 mg/dL (0.2-1.2); Calc. Creatinine Clearance 0 mL/min (70-130); Calcium 8.8 mg/dL (7.8-10.44); Carbon Dioxide 24 mmol/L (23-31); Chloride 106 mmol/L (98-107); Estimated GFR-MDRD 42; Globulin 4.4 g/dL (2.4-3.5); Glucose 77 mg/dL (83-110); Potassium 4.2 mmol/L (3.5-5.1); Protein, Total 7.8 g/dL (5.8-8.1); Sodium 133 mmol/L (136-145)
[2018-12-29] MEDS ORDERED: Dextrose 5% in Water 1,000 ML IV PRN (08:09)
[2018-12-29] MEDS ORDERED: HumaLOG 300 UNITS/3 ML VIAL SC PRN ×2 (08:09)
[2018-12-29] MEDS ORDERED: Dextrose 50% Abboject 50 ML SYRINGE SLOW IVP PRN (08:09)
[2018-12-29 08:26] LABS: Hemoglobin A1c 7.1 % (4.0-6.0)
[2018-12-29] MEDS: Dextrose 5% in Water 500 ML IV SCH ×2 (09:00→19:54)
[2018-12-29] MEDS ORDERED: Dextrose 5% in Water 500 ML IV SCH (09:00)
[2018-12-29] MEDS ORDERED: Acetaminophen 325 MG TAB PO PRN (11:11)
[2018-12-29] MEDS ORDERED: Ondansetron PF 4 MG/2 ML Vial IVP PRN (11:11)
[2018-12-29] MEDS ORDERED: Ondansetron ODT 4 MG TAB PO PRN (11:11)
--- NOTE | 2018-12-29 14:54 | HP ---
PRIMARY CARE PHYSICIAN: Christine Landeros MD CHIEF COMPLAINT: Altered mental status and hypoglycemia. HISTORY OF PRESENT ILLNESS: Mr. Disla is a 78-year-old man with a past medical history of diabetes mellitus, hypertension, hyperlipidemia, BPH, and HIV, who had presented to [facility] earlier this morning after he experienced some mild altered mental status and so called confusion. It was determined by EMS that he have a low blood sugar. Therefore, he was given glucose. It was determined that his glucose improved; however, was noted to be 54 on arrival and after being started on D5W, it also improved to 128. The patient has a long history of frequent hospitalizations due to hypoglycemia. On his last admission, he was discharged home without diabetes coverage due to his blood sugars being so labile. However, he was restarted on his home medications and is now with recurrent hypoglycemic episodes. His A1c was checked and found to be 7.1. He had denied any fever, chills, any headache, blurred vision, dizziness, any chest pain, palpitations, shortness of breath, abdominal pain, nausea, or vomiting. After his blood sugar improved to 128, he had no further symptoms at that time and he had stated that he is back to his baseline. REVIEW OF SYSTEMS: All other systems reviewed and found to be negative unless mentioned in HPI. PAST MEDICAL HISTORY: Significant for diabetes mellitus type 2, hyperlipidemia, hypertension, and HIV. PAST SURGICAL HISTORY: None. SOCIAL HISTORY: The patient denies any alcohol, tobacco, or illicit drug use. KNOWN ALLERGIES: No known drug allergies. CURRENT HOME MEDICATIONS: 1. Metformin 1000 mg p.o. b.i.d. 2. Glimepiride 2 mg oral daily. 3. Amlodipine 10 mg oral daily. 4. Darunavir/cobicistat 800/150 mg oral daily. 5. Tivicay 50 mg oral daily. 6. Etravirine 20 mg oral twice daily. 7. Zetia 10 mg oral daily. 8. Lamivudine 150 mg oral twice daily. 9. Lisinopril 20 mg oral daily. 10. Metoprolol 25 mg oral daily. 11. Raltegravir 40 mg oral twice daily. 12. Bactrim SS one tablet oral daily. 13. Tamsulosin 0.4 mg oral daily. PHYSICAL EXAMINATION: VITAL SIGNS: BP 149/73, pulse 68, respirations 18, temperature 97.8, and O2 saturation 100% on room air. GENERAL: The patient is awake, alert, and oriented x3. He is currently lying comfortably in bed and in no acute distress. HEENT: Atraumatic and normocephalic. Pupils are round and reactive to light. Extraocular muscles intact. Mucous membranes noted. Poor oral hygiene noted. NECK: Soft and supple. Trachea midline. CARDIOVASCULAR: Positive S1 and S2. Regular rate and rhythm. No murmur auscultated. LUNGS: Clear to auscultation bilaterally. No wheezes, rales, or rhonchi. ABDOMEN: Soft and nontender. Bowel sounds present. EXTREMITIES: There is no cyanosis, clubbing, or edema. Moves all extremities equal. NEUROLOGIC: Cranial nerves 2 through 12 grossly intact. No focal deficits noted. Speech intact and normal. Gait not assessed. SKIN: Warm, dry, and intact. No rashes or ulceration noted. PSYCHIATRIC: Good mood and affect. LABORATORY STUDIES: WBC 6.3, RBC 3.05, hemoglobin 9.9, hematocrit 29.5, platelet 232. Sodium 133, potassium 4.2, anion gap 7, BUN 18, creatinine 1.91, estimated GFR 42, and glucose 128. Hemoglobin A1c 7.1. DIAGNOSTIC IMAGING: Portable chest x-ray showed no evidence of acute cardiopulmonary disease. CTA head revealed no evidence of acute intracranial abnormality. ASSESSMENT AND PLAN: 1. Uncontrolled diabetes mellitus with hypoglycemia. His hemoglobin A1c is found to be 7.1, and due to his long history of hypoglycemia, we will hold his home regimen at this time. Start him on D5W and order frequent Accu-Cheks with a mild insulin sliding scale as needed. He will likely be discharged back to his PCP for further management. 2. Hypertension. Continue home regimen. 3. Hyperlipidemia. Continue home regimen of Zetia. 4. History of human immunodeficiency virus. Continue home regimen with the patient's antivirals and prophylactic antibiotics. 5. Deep venous thrombosis and gastrointestinal prophylaxis. 6. Code status, full code. 7. Surrogate decision maker is Karolina Momin. 8. Disposition pending further workup and clinical findings, the patient is likely to be discharged home in the next 1 to 2 days once his blood sugars stabilize. Job ID: [id number]
[2018-12-29] MEDS ORDERED: Raltegravir Potassium 400 MG TAB PO SCH (21:00)
[2018-12-29 21:04] VITALS: BMI 27.7
[2018-12-29] MEDS ORDERED: Dextrose 5% in Water 1,000 ML IV SCH (22:15)
[2018-12-30 04:38] LABS: #Eosinphils 0.6 thou/uL (0.0-0.7); #Lymphocytes 1.3 thou/uL (1.20-3.40); #Monocytes 0.7 thou/uL (0.11-0.59); #Neutrophils 4.4 thou/uL (1.40-6.50); %Basophils 0.6 % (0.0-1.0); %Eosinophils 9.1 % (0.0-10.0); %Lymphocytes 18.2 % (21.0-51.0); %Monocytes 9.4 % (0.0-10.0); %Neutrophils 62.7 % (42.0-75.0); Hemoglobin 11.3 g/dL (14.0-18.0); Mean Corpuscular HGB CONC 33.9 g/dL (32.0-36.0); Mean Corpuscular Hemoglobin 32.8 pg (27.0-31.0); Mean Platelet Volume 6.5 fL (7.4-10.4); Platelet Count 258 thou/uL (130-400); RBC Distribution Width 12.1 % (11.5-14.5); Red Blood Cell (RBC) Count 3.45 mill/uL (4.70-6.10)
[2018-12-30 05:04] LABS: Anion Gap 9 mmol/L (10-20); BUN (Urea Nitrogen) 13 mg/dL (8.4-25.7); Calc. Creatinine Clearance 52 mL/min (70-130); Calcium 9.3 mg/dL (7.8-10.44); Carbon Dioxide 24 mmol/L (23-31); Cardiac Risk 3.5 (Less than 4.5); Chloride 105 mmol/L (98-107); Cholesterol 124 mg/dl (< 200 Desired); Estimated GFR-MDRD 57; Glucose 69 mg/dL (83-110); HDL Cholesterol 35 mg/dL (>60 Neg Risk); LDL Cholesterol, Calculated 74 mg/dL; Potassium 4.7 mmol/L (3.5-5.1); Sodium 133 mmol/L (136-145); Triglycerides 77 mg/dL (Less than 150)
[2018-12-30] MEDS ORDERED: Tamsulosin HCl 0.4 MG CAP PO SCH (09:00)
[2018-12-30] MEDS ORDERED: Lisinopril 20 MG TAB PO SCH (09:00)
[2018-12-30] MEDS ORDERED: Sulfameth/Trimethoprim SS 400-80MG TAB PO SCH (09:00)
[2018-12-30] MEDS ORDERED: Amlodipine 10 MG TAB PO SCH (09:00)
[2018-12-30] MEDS ORDERED: Famotidine 20 MG TAB PO SCH (09:00)
[2018-12-30] MEDS ORDERED: DARUNAVIR PO SCH (09:00)
[2018-12-30] MEDS ORDERED: Ezetimibe 10 MG TAB PO SCH (09:00)
[2018-12-30] MEDS ORDERED: DOLUTEGRAVIR SODIUM PO SCH (09:00)
[2018-12-30] MEDS ORDERED: COBICISTAT PO SCH (09:00)
[2018-12-30 13:09] VITALS: BP 150/71; TEMP 97.6
== END 2018-12-30 15:00 | disposition home or self-care (01) ==
LOC: ERS 06:07 → ONC 10:01
PROVIDERS: ADMIT Internal Medicine; ATTEND Internal Medicine
DX: E11.649 Type 2 diabetes mellitus with hypoglycemia without coma (principal); E78.5 Hyperlipidemia, unspecified; I10 Essential (primary) hypertension; Z21 Asymptomatic human immunodeficiency virus [HIV] infection status; Z79.2 Long term (current) use of antibiotics; Z79.84 Long term (current) use of oral hypoglycemic drugs; Z79.899 Other long term (current) drug therapy
CPT/HCPCS: 80048; 80053; 80061; 82962 ×2; 83036; 85025 ×2; 96360; 96361 ×2; 99285; G0378 ×3; 36415; 36416; J7070

== ENCOUNTER 2023-01-16 13:10 | Inpatient (IN) | payer OTHER, MEDICAID ==
[2023-01-16 14:21] LABS: #Eosinphils 0.1 thou/uL (0.0-0.7); #Monocytes 0.8 thou/uL (0.11-0.59); #Neutrophils 10.5 thou/uL (1.40-6.50); %Basophils 0.2 % (0.0-1.0); %Eosinophils 1.1 % (0.0-10.0); %Lymphocytes 11.1 % (21.0-51.0); %Monocytes 5.9 % (0.0-10.0); %Neutrophils 81.4 % (42.0-75.0); Hematocrit 34.3 % (42.0-52.0); Hemoglobin 11.6 g/dL (14.0-18.0); Mean Corpuscular HGB CONC 33.8 g/dL (32.0-36.0); Mean Corpuscular Hemoglobin 29.8 pg (27.0-31.0); Mean Corpuscular Volume 88.2 fl (78.0-98.0); Mean Platelet Volume 8.9 fL (7.4-10.4); Platelet Count 348 10x3/uL (130-400); RBC Distribution Width 13.2 % (11.5-14.5); Red Blood Cell (RBC) Count 3.89 mill/uL (4.70-6.10); White Blood Cell (WBC) Count 12.9 10x3/uL (4.8-10.8)
[2023-01-16 14:48] LABS: ALT (SGPT) 13 U/L (8-55); AST (SGOT) 23 U/L (5-34); Albumin 3.4 g/dL (3.4-4.8); Alkaline Phosphatase 69 U/L (40-110); Anion Gap 14 mmol/L (10-20); BUN (Urea Nitrogen) 28 mg/dL (8.4-25.7); Bilirubin, Total 0.5 mg/dL (0.2-1.2); Calc. Creatinine Clearance 0 mL/min (70-130); Calcium 9.6 mg/dL (7.8-10.44); Carbon Dioxide 25 mmol/L (23-31); Chloride 96 mmol/L (98-107); Estimated GFR 22; Globulin 5.5 g/dL (2.4-3.5); Glucose 224 mg/dL (83-110); Lipase 22 U/L (8-78); Potassium 3.4 mmol/L (3.5-5.1); Protein, Total 8.9 g/dL (5.8-8.1); Sodium 132 mmol/L (136-145)
[2023-01-16 15:18] LABS: Troponin I 0.017 ng/mL (< 0.028)
[2023-01-16] MEDS ORDERED: Ketorolac Tromethamine 30 MG/ML VIAL ONE (15:26)
[2023-01-16] MEDS ORDERED: Ondansetron PF 4 MG/2 ML Vial IVP PRN (15:31)
[2023-01-16] MEDS ORDERED: Ondansetron ODT 4 MG TAB PO PRN (15:31)
[2023-01-16] MEDS ORDERED: HYDROcodone/Acetaminophen 5/325 mg Tablet PO PRN ×2 (15:31)
[2023-01-16] MEDS ORDERED: Dextrose 5% in Water 1,000 ML IV PRN (15:44)
[2023-01-16] MEDS ORDERED: Glucagon 1 MG/ML KIT IM PRN (15:44)
[2023-01-16] MEDS ORDERED: Dextrose 50% Abboject 50 ML SYRINGE SLOW IVP PRN (15:44)
[2023-01-16] MEDS ORDERED: Cefepime 2 GM VIAL ONE (16:00)
[2023-01-16] MEDS ORDERED: Vancomycin 1.5 GRAM/300 ML BAG 1.5 GM in Premix Bag 1 BAG IVPB SCH (16:15)
[2023-01-16 17:58] VITALS: BMI 27.2
[2023-01-16] MEDS ORDERED: Vancomycin 1 GM in Premix Bag 1 BAG IVPB SCH (21:00)
[2023-01-16] MEDS: Heparin 5,000 UNITS/ML VIAL SC SCH (21:43)
[2023-01-17 04:06] LABS: #Eosinphils 0.3 thou/uL (0.0-0.7); #Monocytes 0.8 thou/uL (0.11-0.59); #Neutrophils 7.3 thou/uL (1.40-6.50); %Basophils 0.2 % (0.0-1.0); %Eosinophils 3.2 % (0.0-10.0); %Lymphocytes 12.2 % (21.0-51.0); %Monocytes 8.1 % (0.0-10.0); Hematocrit 31.5 % (42.0-52.0); Hemoglobin 10.7 g/dL (14.0-18.0); Mean Corpuscular Volume 88.2 fl (78.0-98.0); Mean Platelet Volume 9.3 fL (7.4-10.4); Platelet Count 322 10x3/uL (130-400); RBC Distribution Width 13.1 % (11.5-14.5); Red Blood Cell (RBC) Count 3.57 mill/uL (4.70-6.10); White Blood Cell (WBC) Count 9.7 10x3/uL (4.8-10.8)
[2023-01-17 04:31] LABS: Anion Gap 11 mmol/L (10-20); BUN (Urea Nitrogen) 24 mg/dL (8.4-25.7); Calc. Creatinine Clearance 43 mL/min (70-130); Calcium 8.9 mg/dL (7.8-10.44); Carbon Dioxide 25 mmol/L (23-31); Chloride 102 mmol/L (98-107); Estimated GFR 42; Glucose 102 mg/dL (83-110); Potassium 3.2 mmol/L (3.5-5.1); Sodium 135 mmol/L (136-145)
[2023-01-17] MEDS ORDERED: FLU VACC QS2023(65UP)/MF59C/PF 60 MCG/0.5 ML SYRINGE IM ONE (09:00)
[2023-01-17] MEDS: Heparin 5,000 UNITS/ML VIAL SC SCH ×3 (09:18→20:19)
[2023-01-17] MEDS ORDERED: Cefepime 1 GM in Sodium Chloride 0.9% 100 ML IVPB SCH (11:00)
[2023-01-17] MEDS: Acetaminophen 325 MG TAB PO PRN (11:31)
[2023-01-17] MEDS ORDERED: Vancomycin HCl 500 MG in Sodium Chloride 0.9% 100 ML IVPB SCH (16:00)
[2023-01-17] MEDS: Sulfameth/Trimethoprim DS 800-160mg TAB PO SCH (20:19)
[2023-01-17] MEDS: metFORMIN 500 MG TAB PO SCH (20:19)
[2023-01-18 05:30] LABS: #Eosinphils 0.2 thou/uL (0.0-0.7); #Monocytes 0.7 thou/uL (0.11-0.59); #Neutrophils 7.2 thou/uL (1.40-6.50); %Basophils 0.2 % (0.0-1.0); %Eosinophils 2.4 % (0.0-10.0); %Monocytes 6.8 % (0.0-10.0); %Neutrophils 75.1 % (42.0-75.0); Hematocrit 30.6 % (42.0-52.0); Hemoglobin 10.3 g/dL (14.0-18.0); Mean Corpuscular HGB CONC 33.7 g/dL (32.0-36.0); Mean Corpuscular Hemoglobin 29.4 pg (27.0-31.0); Mean Corpuscular Volume 87.4 fl (78.0-98.0); Mean Platelet Volume 9.3 fL (7.4-10.4); Platelet Count 325 10x3/uL (130-400); White Blood Cell (WBC) Count 9.6 10x3/uL (4.8-10.8)
[2023-01-18 05:34] LABS: Hemoglobin A1c 7.2 % (4.0-6.0)
[2023-01-18 05:55] LABS: Anion Gap 12 mmol/L (10-20); BUN (Urea Nitrogen) 14 mg/dL (8.4-25.7); Calc. Creatinine Clearance 60 mL/min (70-130); Carbon Dioxide 26 mmol/L (23-31); Chloride 101 mmol/L (98-107); Estimated GFR 63; Glucose 96 mg/dL (83-110); Potassium 3.5 mmol/L (3.5-5.1); Sodium 135 mmol/L (136-145)
[2023-01-18] MEDS ORDERED: Darunavir/Cobicistat [Prezcobix 800 Mg-150 Mg Tablet] PO SCH (09:00)
[2023-01-18] MEDS: Tamsulosin HCl 0.4 MG CAP PO SCH (09:27)
[2023-01-18] MEDS: metFORMIN 500 MG TAB PO SCH (09:27)
[2023-01-18] MEDS: Sulfameth/Trimethoprim DS 800-160mg TAB PO SCH (09:27)
[2023-01-18] MEDS: Lisinopril 20 MG TAB PO SCH (09:27)
[2023-01-18] MEDS: Heparin 5,000 UNITS/ML VIAL SC SCH ×3 (09:28→19:55)
[2023-01-18] MEDS ORDERED: Electrolyte Replacement Protocol 1 EACH FS SCH (10:30)
[2023-01-18] MEDS ORDERED: Potassium Chloride 20 MEQ TAB PO SCH (11:00)
[2023-01-18] MEDS: Acetaminophen 325 MG TAB PO PRN (11:14)
[2023-01-18 12:58] LABS: HIV (1/2) Antibody/Antigen Reflxed Confirmation (NonReactive)
[2023-01-18 13:01] LABS: HIV 1/2 INDEX 1056.84 S/CO (<1.00)
[2023-01-18] MEDS: Vancomycin 1.5 GRAM/300 ML BAG 1.5 GM in Premix Bag 1 BAG IVPB SCH (14:36)
[2023-01-18] MEDS: Ampicillin/Sulbactam 3 GM in Sodium Chloride 0.9% 100 ML IVPB SCH ×2 (18:58→23:11)
[2023-01-18] MEDS ORDERED: Vancomycin 1 GM in Premix Bag 1 BAG IVPB SCH (21:00)
[2023-01-19] MEDS: Ampicillin/Sulbactam 3 GM in Sodium Chloride 0.9% 100 ML IVPB SCH ×3 (05:40→17:53)
[2023-01-19 06:18] LABS: #Eosinphils 0.2 thou/uL (0.0-0.7); #Monocytes 0.8 thou/uL (0.11-0.59); #Neutrophils 6.2 thou/uL (1.40-6.50); %Basophils 0.3 % (0.0-1.0); %Eosinophils 2.7 % (0.0-10.0); %Lymphocytes 18.9 % (21.0-51.0); %Monocytes 8.7 % (0.0-10.0); Hematocrit 29.6 % (42.0-52.0); Mean Corpuscular HGB CONC 33.8 g/dL (32.0-36.0); Mean Corpuscular Hemoglobin 29.3 pg (27.0-31.0); Mean Corpuscular Volume 86.8 fl (78.0-98.0); Mean Platelet Volume 8.8 fL (7.4-10.4); Platelet Count 344 10x3/uL (130-400); Red Blood Cell (RBC) Count 3.41 mill/uL (4.70-6.10)
[2023-01-19 06:42] LABS: Anion Gap 11 mmol/L (10-20); BUN (Urea Nitrogen) 10 mg/dL (8.4-25.7); CRP (Inflammatory) 7.54 mg/dL (= or < 0.5); Calc. Creatinine Clearance 70 mL/min (70-130); Calcium 8.8 mg/dL (7.8-10.44); Carbon Dioxide 24 mmol/L (23-31); Chloride 102 mmol/L (98-107); Estimated GFR 76; Glucose 88 mg/dL (83-110); Magnesium 1.6 mg/dL (1.6-2.6); Sodium 133 mmol/L (136-145)
[2023-01-19 07:05] LABS: Thyroid Stimulating Hormone 1.431 uIU/mL (0.35-4.94)
[2023-01-19] MEDS ORDERED: Magnesium 2 GM/50 ML(in water) 2 GM in Premix Bag 1 BAG IVPB SCH (08:00)
[2023-01-19] MEDS: Lisinopril 20 MG TAB PO SCH (08:51)
[2023-01-19] MEDS: Tamsulosin HCl 0.4 MG CAP PO SCH (08:51)
[2023-01-19] MEDS ORDERED: Cyanocobalamin 1000 MCG/ML VIAL IM SCH (09:00)
[2023-01-19 12:24] LABS: Syphilis Antibody Nonreactive (Nonreactive); Syphilis Antibody Index 0.06 S/CO (<1.00 Non-Reactive)
[2023-01-19] MEDS: Vancomycin 1.5 GRAM/300 ML BAG 1.5 GM in Premix Bag 1 BAG IVPB SCH (14:55)
[2023-01-20] MEDS: Ampicillin/Sulbactam 3 GM in Sodium Chloride 0.9% 100 ML IVPB SCH ×4 (00:18→17:50)
[2023-01-20 05:50] LABS: #Eosinphils 0.3 thou/uL (0.0-0.7); #Monocytes 0.8 thou/uL (0.11-0.59); #Neutrophils 4.8 thou/uL (1.40-6.50); %Basophils 0.3 % (0.0-1.0); %Eosinophils 4.2 % (0.0-10.0); %Lymphocytes 22.7 % (21.0-51.0); %Monocytes 9.8 % (0.0-10.0); %Neutrophils 62.3 % (42.0-75.0); Hematocrit 28.8 % (42.0-52.0); Hemoglobin 9.6 g/dL (14.0-18.0); Mean Corpuscular HGB CONC 33.3 g/dL (32.0-36.0); Mean Corpuscular Hemoglobin 29.7 pg (27.0-31.0); Mean Corpuscular Volume 89.2 fl (78.0-98.0); Mean Platelet Volume 9.1 fL (7.4-10.4); Platelet Count 362 10x3/uL (130-400); RBC Distribution Width 13.1 % (11.5-14.5); Red Blood Cell (RBC) Count 3.23 mill/uL (4.70-6.10); White Blood Cell (WBC) Count 7.7 10x3/uL (4.8-10.8)
[2023-01-20 06:19] LABS: Anion Gap 10 mmol/L (10-20); BUN (Urea Nitrogen) 7 mg/dL (8.4-25.7); Calc. Creatinine Clearance 65 mL/min (70-130); Calcium 8.7 mg/dL (7.8-10.44); Carbon Dioxide 26 mmol/L (23-31); Chloride 102 mmol/L (98-107); Estimated GFR 70; Glucose 118 mg/dL (83-110); Magnesium 1.7 mg/dL (1.6-2.6); Potassium 4.2 mmol/L (3.5-5.1); Sodium 134 mmol/L (136-145)
[2023-01-20] MEDS ORDERED: Magnesium 2 GM/50 ML(in water) 2 GM in Premix Bag 1 BAG IVPB SCH (08:00)
[2023-01-20] MEDS: Tamsulosin HCl 0.4 MG CAP PO SCH (08:53)
[2023-01-20] MEDS: Lisinopril 20 MG TAB PO SCH (08:53)
[2023-01-20 14:23] LABS: Vancomycin, Trough 9.1 ug/mL
[2023-01-20] MEDS: Vancomycin 1.5 GRAM/300 ML BAG 1.5 GM in Premix Bag 1 BAG IVPB SCH (15:18)
[2023-01-20 16:37] LABS: %CD3 (Mature T-Cells) 53.4 % (57.5-86.2); %CD4 (Helper/Inducer) 14.8 % (30.8-58.5); %CD8 (Cytotoxic/Suppressor) 38.6 % (12.0-35.5); %Neutrophils 76 % (Not Estab.); Absolute CD3 748 /uL (622-2402); Absolute CD8 540 /uL (109-897); CD4/CD8 Ratio 0.38 (0.92-3.72); Hemoglobin 10.3 g/dL (13.0-17.7); Mean Corpuscular Hemoglobin 29.3 pg (26.6-33.0); Mean Corpuscular Volume 89 fL (79-97); Platelet Count 351 x10E3/uL (150-450); RBC Distribution Width 13.2 % (11.6-15.4)
[2023-01-21] MEDS: Vancomycin HCl 750 MG in Sodium Chloride 0.9% 250 ML 250 ML IVPB SCH ×2 (04:00→15:27)
[2023-01-21 06:38] LABS: #Eosinphils 0.2 thou/uL (0.0-0.7); #Monocytes 0.4 thou/uL (0.11-0.59); #Neutrophils 2.9 thou/uL (1.40-6.50); %Basophils 0.4 % (0.0-1.0); %Eosinophils 4.3 % (0.0-10.0); %Lymphocytes 30.8 % (21.0-51.0); %Monocytes 8.5 % (0.0-10.0); %Neutrophils 55.6 % (42.0-75.0); Hematocrit 29.4 % (42.0-52.0); Hemoglobin 9.8 g/dL (14.0-18.0); Mean Corpuscular HGB CONC 33.3 g/dL (32.0-36.0); Mean Corpuscular Hemoglobin 29.3 pg (27.0-31.0); Mean Corpuscular Volume 87.8 fl (78.0-98.0); Mean Platelet Volume 8.9 fL (7.4-10.4); Platelet Count 391 10x3/uL (130-400); RBC Distribution Width 13.2 % (11.5-14.5); Red Blood Cell (RBC) Count 3.35 mill/uL (4.70-6.10); White Blood Cell (WBC) Count 5.2 10x3/uL (4.8-10.8)
[2023-01-21 07:28] LABS: Anion Gap 11 mmol/L (10-20); BUN (Urea Nitrogen) 6 mg/dL (8.4-25.7); Calc. Creatinine Clearance 79 mL/min (70-130); Calcium 8.6 mg/dL (7.8-10.44); Carbon Dioxide 23 mmol/L (23-31); Chloride 105 mmol/L (98-107); Estimated GFR 87; Glucose 150 mg/dL (83-110); Magnesium 1.8 mg/dL (1.6-2.6); Potassium 4.2 mmol/L (3.5-5.1); Sodium 135 mmol/L (136-145)
[2023-01-21] MEDS: Lisinopril 20 MG TAB PO SCH (09:20)
[2023-01-21] MEDS: Tamsulosin HCl 0.4 MG CAP PO SCH (09:26)
[2023-01-21 10:15] LABS: LOG10 HIV-1 RNA 1.954 (.)
[2023-01-21] MEDS ORDERED: Magnesium 2 GM/50 ML(in water) 2 GM in Premix Bag 1 BAG IVPB SCH (10:30)
[2023-01-21 13:39] LABS: Lymphocytes/Gated Cell Count 1.6 x10E3/uL (0.7-3.1); Total Lymphocyte 16 % (Not Estab.); WBC Total Count 9.5 x10E3/uL (3.4-10.8)
[2023-01-21] MEDS: HumaLOG 300 UNITS/3 ML VIAL SC PRN (17:46)
[2023-01-22] MEDS: Vancomycin HCl 750 MG in Sodium Chloride 0.9% 250 ML 250 ML IVPB SCH ×2 (02:24→15:12)
[2023-01-22 06:29] LABS: #Eosinphils 0.2 thou/uL (0.0-0.7); #Monocytes 0.5 thou/uL (0.11-0.59); #Neutrophils 2.9 thou/uL (1.40-6.50); %Basophils 0.6 % (0.0-1.0); %Eosinophils 4.4 % (0.0-10.0); %Lymphocytes 29.5 % (21.0-51.0); %Neutrophils 55.9 % (42.0-75.0); Hematocrit 29.4 % (42.0-52.0); Hemoglobin 9.6 g/dL (14.0-18.0); Mean Corpuscular HGB CONC 32.7 g/dL (32.0-36.0); Mean Corpuscular Hemoglobin 28.9 pg (27.0-31.0); Mean Corpuscular Volume 88.6 fl (78.0-98.0); Mean Platelet Volume 8.7 fL (7.4-10.4); Platelet Count 425 10x3/uL (130-400); RBC Distribution Width 13.2 % (11.5-14.5); Red Blood Cell (RBC) Count 3.32 mill/uL (4.70-6.10); White Blood Cell (WBC) Count 5.3 10x3/uL (4.8-10.8)
[2023-01-22 06:57] LABS: Anion Gap 6 mmol/L (10-20); BUN (Urea Nitrogen) 6 mg/dL (8.4-25.7); Calcium 8.8 mg/dL (7.8-10.44); Carbon Dioxide 29 mmol/L (23-31); Chloride 103 mmol/L (98-107); Glucose 166 mg/dL (83-110); Magnesium 1.7 mg/dL (1.6-2.6); Potassium 4.2 mmol/L (3.5-5.1); Sodium 134 mmol/L (136-145)
[2023-01-22 07:09] LABS: Calc. Creatinine Clearance 74 mL/min (70-130); Estimated GFR 82
[2023-01-22] MEDS ORDERED: Magnesium 2 GM/50 ML(in water) 2 GM in Premix Bag 1 BAG IVPB SCH (08:00)
[2023-01-22] MEDS: Tamsulosin HCl 0.4 MG CAP PO SCH (08:32)
[2023-01-22] MEDS: Lisinopril 20 MG TAB PO SCH (08:32)
[2023-01-22] MEDS: HumaLOG 300 UNITS/3 ML VIAL SC PRN (12:56)
[2023-01-22 14:42] LABS: Vancomycin, Trough 16.5 ug/mL
[2023-01-22 15:15] LABS: HIV 1 Antibody Multi-Spot Reactive (Non Reactive); HIV 2 Antibody Multi-Spot Non Reactive (Non Reactive); HIV Multi-spot Interp HIV-1 Positive (.)
[2023-01-22] MEDS: Cyanocobalamin (Vitamin B-12) 1,000 MCG TAB PO SCH (20:31)
[2023-01-23] MEDS: Vancomycin HCl 750 MG in Sodium Chloride 0.9% 250 ML 250 ML IVPB SCH ×2 (03:15→14:56)
[2023-01-23 07:30] LABS: #Eosinphils 0.2 thou/uL (0.0-0.7); #Monocytes 0.5 thou/uL (0.11-0.59); #Neutrophils 4.4 thou/uL (1.40-6.50); %Basophils 0.6 % (0.0-1.0); %Eosinophils 2.9 % (0.0-10.0); %Lymphocytes 28.2 % (21.0-51.0); %Monocytes 7.5 % (0.0-10.0); %Neutrophils 60.4 % (42.0-75.0); Hematocrit 30.8 % (42.0-52.0); Hemoglobin 10.2 g/dL (14.0-18.0); Mean Corpuscular HGB CONC 33.1 g/dL (32.0-36.0); Mean Corpuscular Hemoglobin 29.7 pg (27.0-31.0); Mean Corpuscular Volume 89.5 fl (78.0-98.0); Mean Platelet Volume 8.5 fL (7.4-10.4); Platelet Count 445 10x3/uL (130-400); RBC Distribution Width 13.2 % (11.5-14.5); Red Blood Cell (RBC) Count 3.44 mill/uL (4.70-6.10); White Blood Cell (WBC) Count 7.2 10x3/uL (4.8-10.8)
[2023-01-23 08:15] LABS: Anion Gap 11 mmol/L (10-20); BUN (Urea Nitrogen) 6 mg/dL (8.4-25.7); Calc. Creatinine Clearance 70 mL/min (70-130); Carbon Dioxide 26 mmol/L (23-31); Chloride 102 mmol/L (98-107); Estimated GFR 76; Glucose 152 mg/dL (83-110); Magnesium 1.8 mg/dL (1.6-2.6); Potassium 4.6 mmol/L (3.5-5.1); Sodium 134 mmol/L (136-145)
[2023-01-23] MEDS: Tamsulosin HCl 0.4 MG CAP PO SCH (08:20)
[2023-01-23] MEDS: Lisinopril 20 MG TAB PO SCH (08:20)
[2023-01-23] MEDS ORDERED: Magnesium 2 GM/50 ML(in water) 2 GM in Premix Bag 1 BAG IVPB SCH (09:00)
[2023-01-23] MEDS: HumaLOG 300 UNITS/3 ML VIAL SC PRN (12:43)
[2023-01-23 17:38] LABS: %CD4 (Helper/Inducer) 18.2 % (30.8-58.5); Absolute CD4 291 /uL (359-1519); Lymphocytes/Gated Cell Count 1.6 x10E3/uL (0.7-3.1); Total Lymphocyte 30 % (Not Estab.); WBC Total Count 5.4 x10E3/uL (3.4-10.8)
[2023-01-23] MEDS: Cyanocobalamin (Vitamin B-12) 1,000 MCG TAB PO SCH (21:20)
[2023-01-23] MEDS: Acetaminophen 325 MG TAB PO PRN (21:20)
[2023-01-24 02:44] LABS: Vancomycin, Trough 16.5 ug/mL
[2023-01-24] MEDS: Vancomycin HCl 750 MG in Sodium Chloride 0.9% 250 ML 250 ML IVPB SCH ×2 (03:31→14:15)
[2023-01-24 05:01] VITALS: TEMP 97.9
[2023-01-24] MEDS: HumaLOG 300 UNITS/3 ML VIAL SC PRN (05:58)
[2023-01-24] MEDS: Tamsulosin HCl 0.4 MG CAP PO SCH (08:10)
[2023-01-24] MEDS: Lisinopril 20 MG TAB PO SCH (08:10)
[2023-01-24 12:11] VITALS: BP 152/58
[2023-01-24] MEDS ORDERED: Vancomycin HCl 750 MG VIAL ONE ×2 (14:00→14:01)
== END 2023-01-24 15:49 | disposition home health service (06) | DRG 871 ==
LOC: ERS 13:10 → ERHOLD 15:31 → OBSVTOIN 15:31 → 2NO 17:29 → T4-A 01-17 10:45
PROVIDERS: ADMIT Family Medicine; ATTEND Internal Medicine
PROC: 0SJD3ZZ Inspection of Left Knee Joint, Percutaneous Approach (ICD-10-PCS; principal; 2023-01-16)
PROC: 3E03329 Introduction of Other Anti-infective into Peripheral Vein, Percutaneous Approach (ICD-10-PCS; 2023-01-16)
PROC: 02HV33Z Insertion of Infusion Device into Superior Vena Cava, Percutaneous Approach (ICD-10-PCS; 2023-01-23)
PROC: B5181ZA Fluoroscopy of Superior Vena Cava using Low Osmolar Contrast, Guidance (ICD-10-PCS; 2023-01-23)
PROC: B548ZZA Ultrasonography of Superior Vena Cava, Guidance (ICD-10-PCS; 2023-01-23)
DX: A41.02 Sepsis due to Methicillin resistant Staphylococcus aureus (principal); G93.41 Metabolic encephalopathy; E87.1 Hypo-osmolality and hyponatremia; N17.9 Acute kidney failure, unspecified; L03.116 Cellulitis of left lower limb; L03.115 Cellulitis of right lower limb; L02.416 Cutaneous abscess of left lower limb; E78.00 Pure hypercholesterolemia, unspecified; E11.22 Type 2 diabetes mellitus with diabetic chronic kidney disease; Z21 Asymptomatic human immunodeficiency virus [HIV] infection status; N18.9 Chronic kidney disease, unspecified; I12.9 Hypertensive chronic kidney disease with stage 1 through stage 4 chronic kidney disease, or unspecified chronic kidney disease; M17.12 Unilateral primary osteoarthritis, left knee; R65.20 Severe sepsis without septic shock; D51.9 Vitamin B12 deficiency anemia, unspecified; E87.6 Hypokalemia; E83.42 Hypomagnesemia; Z79.84 Long term (current) use of oral hypoglycemic drugs; Z79.899 Other long term (current) drug therapy
CPT/HCPCS: 36415; 36416; 36569; 70450; 70551; 71045; 80048; 80053; 80202; 82607; 83036; 83690; 83735; 83880; 84443; 84484; 85025; 86140; 86359; 86360; 86361; 86701; 86702; 86780; 86850; 86900; 86901; 87040; 87070; 87077; 87149; 87186; 87205; 87389; 87536; 93005; 93306; 96365; 96375; 97139; C1751; J0295; J0692; J1644; J1650; J1815; J1885; J3370; J3420; J3475; J3490; J7050

== ENCOUNTER 2023-01-27 15:34 | Inpatient (IN) | payer OTHER, MEDICAID ==
[2023-01-27 16:43] LABS: #Eosinphils 0.2 thou/uL (0.0-0.7); #Monocytes 0.6 thou/uL (0.11-0.59); %Basophils 0.6 % (0.0-1.0); %Eosinophils 3.9 % (0.0-10.0); %Lymphocytes 26.3 % (21.0-51.0); Hematocrit 34.2 % (42.0-52.0); Hemoglobin 11.3 g/dL (14.0-18.0); Mean Corpuscular Hemoglobin 29.7 pg (27.0-31.0); Mean Corpuscular Volume 89.8 fl (78.0-98.0); Mean Platelet Volume 8.5 fL (7.4-10.4); Platelet Count 381 10x3/uL (130-400); RBC Distribution Width 14.1 % (11.5-14.5); Red Blood Cell (RBC) Count 3.81 mill/uL (4.70-6.10); White Blood Cell (WBC) Count 5.1 10x3/uL (4.8-10.8)
[2023-01-27 17:06] LABS: ALT (SGPT) 14 U/L (8-55); AST (SGOT) 12 U/L (5-34); Albumin 3.7 g/dL (3.4-4.8); Alkaline Phosphatase 74 U/L (40-110); Anion Gap 12 mmol/L (10-20); BUN (Urea Nitrogen) 11 mg/dL (8.4-25.7); Bilirubin, Total 0.3 mg/dL (0.2-1.2); Calc. Creatinine Clearance 0 mL/min (70-130); Calcium 9.4 mg/dL (7.8-10.44); Carbon Dioxide 27 mmol/L (23-31); Chloride 100 mmol/L (98-107); Estimated GFR 48; Globulin 4.9 g/dL (2.4-3.5); Glucose 195 mg/dL (83-110); Potassium 4.3 mmol/L (3.5-5.1); Protein, Total 8.6 g/dL (5.8-8.1); Sodium 135 mmol/L (136-145)
[2023-01-27] MEDS ORDERED: cloNIDine 0.1 MG TAB ONE (17:14)
[2023-01-27] MEDS ORDERED: Vancomycin (BATCH) 1.5 GM in Premix 1 BAG IVPB SCH (17:15)
[2023-01-27] MEDS ORDERED: Dextrose 5% in Water 1,000 ML IV PRN (18:12)
[2023-01-27] MEDS ORDERED: Glucagon 1 MG/ML KIT IM PRN (18:12)
[2023-01-27] MEDS ORDERED: Dextrose 50% Abboject 50 ML SYRINGE SLOW IVP PRN (18:12)
[2023-01-27] MEDS ORDERED: Ondansetron PF 4 MG/2 ML Vial IVP PRN (18:12)
[2023-01-27] MEDS ORDERED: Acetaminophen 325 MG TAB PO PRN (18:12)
[2023-01-27] MEDS ORDERED: hydrALAZINE 20 MG/ML VIAL SLOW IVP PRN (18:12)
[2023-01-27] MEDS ORDERED: HumaLOG 300 UNITS/3 ML VIAL SC PRN ×2 (18:12)
[2023-01-27] MEDS ORDERED: Nicotine 7 MG PATCH TD PRN (18:19)
[2023-01-27] MEDS ORDERED: hydrALAZINE 20 MG/ML VIAL ONE (18:37)
[2023-01-27] MEDS: hydrALAZINE 25 MG TAB PO SCH (22:20)
[2023-01-27] MEDS: Atorvastatin Calcium 20 MG TAB PO SCH (22:21)
[2023-01-27] MEDS: Sodium Chloride 0.9% 1,000 ML IV SCH (22:21)
[2023-01-28 04:54] LABS: #Eosinphils 0.3 thou/uL (0.0-0.7); #Monocytes 0.4 thou/uL (0.11-0.59); #Neutrophils 2.4 thou/uL (1.40-6.50); %Basophils 0.7 % (0.0-1.0); %Eosinophils 6.2 % (0.0-10.0); %Lymphocytes 22.4 % (21.0-51.0); %Monocytes 10.3 % (0.0-10.0); %Neutrophils 60.2 % (42.0-75.0); Hematocrit 29.9 % (42.0-52.0); Hemoglobin 9.8 g/dL (14.0-18.0); Mean Corpuscular HGB CONC 32.8 g/dL (32.0-36.0); Mean Corpuscular Hemoglobin 29.6 pg (27.0-31.0); Mean Corpuscular Volume 90.3 fl (78.0-98.0); Mean Platelet Volume 8.5 fL (7.4-10.4); Platelet Count 330 10x3/uL (130-400); RBC Distribution Width 14.5 % (11.5-14.5); Red Blood Cell (RBC) Count 3.31 mill/uL (4.70-6.10); White Blood Cell (WBC) Count 4.1 10x3/uL (4.8-10.8)
[2023-01-28 05:21] LABS: Anion Gap 10 mmol/L (10-20); BUN (Urea Nitrogen) 10 mg/dL (8.4-25.7); Calc. Creatinine Clearance 59 mL/min (70-130); Calcium 8.6 mg/dL (7.8-10.44); Carbon Dioxide 25 mmol/L (23-31); Chloride 105 mmol/L (98-107); Estimated GFR 62; Glucose 163 mg/dL (83-110); Potassium 3.8 mmol/L (3.5-5.1); Sodium 136 mmol/L (136-145)
[2023-01-28] MEDS: Amlodipine 10 MG TAB PO SCH (08:41)
[2023-01-28] MEDS: Ezetimibe 10 MG TAB PO SCH (08:43)
[2023-01-28] MEDS: Tamsulosin HCl 0.4 MG CAP PO SCH (08:43)
[2023-01-28] MEDS: hydrALAZINE 25 MG TAB PO SCH ×4 (08:43→20:47)
[2023-01-28 13:28] VITALS: BMI 27.1
[2023-01-28] MEDS ORDERED: Vancomycin (BATCH) 1.25 GM in Premix 1 BAG IVPB SCH (17:00)
[2023-01-28] MEDS: Sodium Chloride 0.9% 1,000 ML IV SCH (19:10)
[2023-01-28] MEDS: Atorvastatin Calcium 20 MG TAB PO SCH (20:54)
[2023-01-28] MEDS: metFORMIN 500 MG TAB PO SCH (21:13)
[2023-01-29 05:14] LABS: #Eosinphils 0.3 thou/uL (0.0-0.7); #Monocytes 0.4 thou/uL (0.11-0.59); #Neutrophils 2.6 thou/uL (1.40-6.50); %Basophils 0.6 % (0.0-1.0); %Eosinophils 5.3 % (0.0-10.0); %Lymphocytes 31.6 % (21.0-51.0); %Monocytes 8.4 % (0.0-10.0); %Neutrophils 53.9 % (42.0-75.0); Hematocrit 29.1 % (42.0-52.0); Hemoglobin 9.5 g/dL (14.0-18.0); Mean Corpuscular HGB CONC 32.6 g/dL (32.0-36.0); Mean Corpuscular Hemoglobin 29.8 pg (27.0-31.0); Mean Corpuscular Volume 91.2 fl (78.0-98.0); Mean Platelet Volume 8.6 fL (7.4-10.4); Platelet Count 278 10x3/uL (130-400); RBC Distribution Width 14.4 % (11.5-14.5); Red Blood Cell (RBC) Count 3.19 mill/uL (4.70-6.10); White Blood Cell (WBC) Count 4.9 10x3/uL (4.8-10.8)
[2023-01-29 06:57] LABS: Anion Gap 9 mmol/L (10-20); BUN (Urea Nitrogen) 9 mg/dL (8.4-25.7); Calc. Creatinine Clearance 59 mL/min (70-130); Calcium 8.3 mg/dL (7.8-10.44); Carbon Dioxide 24 mmol/L (23-31); Chloride 104 mmol/L (98-107); Estimated GFR 62; Glucose 141 mg/dL (83-110); Potassium 3.8 mmol/L (3.5-5.1); Sodium 133 mmol/L (136-145)
[2023-01-29] MEDS: Glimepiride 2 MG TAB PO SCH (08:20)
[2023-01-29] MEDS: metFORMIN 500 MG TAB PO SCH ×2 (08:21→20:56)
[2023-01-29] MEDS: Amlodipine 10 MG TAB PO SCH (08:21)
[2023-01-29] MEDS: Ezetimibe 10 MG TAB PO SCH (08:21)
[2023-01-29] MEDS: Tamsulosin HCl 0.4 MG CAP PO SCH (08:23)
[2023-01-29] MEDS: hydrALAZINE 25 MG TAB PO SCH ×4 (08:25→20:57)
[2023-01-29] MEDS: Sulfameth/Trimethoprim SS 400-80MG TAB PO SCH (09:28)
[2023-01-29] MEDS ORDERED: DAPTOmycin 500 MG VIAL SLOW IVP SCH (11:00)
[2023-01-29] MEDS: Sodium Chloride 0.9% 1,000 ML IV SCH (11:59)
[2023-01-29] MEDS ORDERED: ADMIXTURE FEE IVPB SCH (14:00)
[2023-01-29] MEDS ORDERED: DAPTOMYCIN IVPB SCH (14:00)
[2023-01-29] MEDS ORDERED: SODIUM CHLORIDE IVPB SCH (14:00)
[2023-01-29] MEDS ORDERED: Vancomycin (BATCH) 1.25 GM in Premix 1 BAG IVPB SCH (17:00)
[2023-01-30] MEDS: hydrALAZINE 25 MG TAB PO SCH ×4 (08:23→20:27)
[2023-01-30] MEDS: metFORMIN 500 MG TAB PO SCH ×2 (08:23→20:27)
[2023-01-30] MEDS: Amlodipine 10 MG TAB PO SCH (08:24)
[2023-01-30] MEDS: Tamsulosin HCl 0.4 MG CAP PO SCH (08:25)
[2023-01-30] MEDS: Glimepiride 2 MG TAB PO SCH (08:25)
[2023-01-30] MEDS: Ezetimibe 10 MG TAB PO SCH (08:25)
[2023-01-30] MEDS ORDERED: FLU VACC QS2023(65UP)/MF59C/PF 60 MCG/0.5 ML SYRINGE IM ONE (09:00)
[2023-01-30] MEDS: Silver Sulfadiazine 50 GM TUBE TOP SCH (14:34)
[2023-01-31] MEDS: Tamsulosin HCl 0.4 MG CAP PO SCH (09:24)
[2023-01-31] MEDS: Amlodipine 10 MG TAB PO SCH (09:24)
[2023-01-31] MEDS: Sulfameth/Trimethoprim SS 400-80MG TAB PO SCH (09:24)
[2023-01-31] MEDS: Ezetimibe 10 MG TAB PO SCH (09:25)
[2023-01-31] MEDS: Glimepiride 2 MG TAB PO SCH (09:25)
[2023-01-31] MEDS: Silver Sulfadiazine 50 GM TUBE TOP SCH (09:25)
[2023-01-31] MEDS: hydrALAZINE 25 MG TAB PO SCH ×2 (09:25→13:42)
[2023-01-31] MEDS: metFORMIN 500 MG TAB PO SCH (09:25)
[2023-01-31 11:26] VITALS: TEMP 98.3
[2023-01-31 12:56] VITALS: BP 146/72
== END 2023-01-31 15:50 | disposition home or self-care (01) | DRG 603 ==
LOC: ERS 15:34 → 2SW 17:56 → OBSVTOIN 01-28 11:26
PROVIDERS: ADMIT Family Medicine; ATTEND Family Medicine
PROC: 0HBKXZZ Excision of Right Lower Leg Skin, External Approach (ICD-10-PCS; principal; 2023-01-30)
DX: L03.115 Cellulitis of right lower limb (principal); N17.9 Acute kidney failure, unspecified; R78.81 Bacteremia; L97.819 Non-pressure chronic ulcer of other part of right lower leg with unspecified severity; Z21 Asymptomatic human immunodeficiency virus [HIV] infection status; L03.116 Cellulitis of left lower limb; E78.5 Hyperlipidemia, unspecified; N40.0 Benign prostatic hyperplasia without lower urinary tract symptoms; D64.9 Anemia, unspecified; F17.210 Nicotine dependence, cigarettes, uncomplicated; R53.81 Other malaise; B95.62 Methicillin resistant Staphylococcus aureus infection as the cause of diseases classified elsewhere; N18.9 Chronic kidney disease, unspecified; E11.22 Type 2 diabetes mellitus with diabetic chronic kidney disease; I12.9 Hypertensive chronic kidney disease with stage 1 through stage 4 chronic kidney disease, or unspecified chronic kidney disease; E78.00 Pure hypercholesterolemia, unspecified; Z79.84 Long term (current) use of oral hypoglycemic drugs; Z79.899 Other long term (current) drug therapy; Z98.890 Other specified postprocedural states
CPT/HCPCS: 36415; 36416; 80048; 80053; 83605; 85025; 86140; 87040; 93005; 96365; 96366; 96372; 96375; 97139; G0378; J0360; J0878; J1650; J3370; J7050

== ENCOUNTER 2024-01-12 11:55 | Inpatient (IN) | payer OTHER, MEDICAID ==
[2024-01-12] MEDS ORDERED: LevoFLOXacin 750 mg/D5W 750 MG in Premix 1 BAG IVPB SCH (12:30)
[2024-01-12] MEDS ORDERED: cefTRIAXone (ROCEPHIN) 2 GM VIAL ONE (12:45)
[2024-01-12] MEDS ORDERED: Sodium Chloride 0.9% 100 ML ONE (12:45)
[2024-01-12 13:14] LABS: Bilirubin Negative (Negative); Blood, Urine Trace (Negative); CAUTI Indications for Culture Dysuria,urgency,freq; Clarity Clear (Clear); Glucose, Urine (Dipstick) 50 mg/dL (Negative); Ketone, Urine Negative (Negative); Leukocyte 75 Leu/uL (Negative); Nitrite Negative (Negative); Protein, Urine (Dipstick) 30 mg/dL (Neg-Trace); RBC/HPF 0-3 HPF (0-3); Specific Gravity, Urine 1.008 (1.002-1.036); Squamous Epithelial 0-3 HPF (0-3); Urobilinogen Normal mg/dL (Less than 2); WBC/HPF 21-50 HPF (0-3); pH, Urine 7.5 (5.0-9.0)
[2024-01-12 13:15] LABS: Bacteria/HPF 1+ HPF (None Seen)
[2024-01-12 13:16] LABS: Urine Culture Reflex Yes Yes
[2024-01-12] MEDS ORDERED: Ketorolac Tromethamine 30 MG (1 mL) VIAL ONE (13:35)
[2024-01-12] MEDS ORDERED: Vancomycin 1 GM/200 ML (FROZEN) BAG ONE (13:36)
[2024-01-12 13:57] LABS: #Basophils Less than 0.03 10x3/uL (0.0-0.2); #Eosinophils Less than 0.03 10x3/uL (0.0-0.7); %Basophils 0.4 % (0.0-1.0); %Eosinophils 0.4 % (0.0-10.0); %Lymphocytes 34.7 % (21.0-51.0); %Neutrophils 62.5 % (42.0-75.0); Hematocrit 35.2 % (42.0-52.0); Hemoglobin 11.9 g/dL (14.0-18.0); Mean Corpuscular HGB CONC 33.8 g/dL (32.0-36.0); Mean Corpuscular Hemoglobin 30.7 pg (27.0-31.0); Mean Platelet Volume 10.7 fL (7.4-10.4); Platelet Count 136 10x3/uL (130-400); RBC Distribution Width 13.3 % (11.5-14.5); Red Blood Cell (RBC) Count 3.87 mill/uL (4.70-6.10)
[2024-01-12 14:17] LABS: ALT (SGPT) 6 U/L (8-55); AST (SGOT) 13 U/L (5-34); Albumin 3.3 g/dL (3.4-4.8); Alkaline Phosphatase 48 U/L (40-110); Anion Gap 18 mmol/L (10-20); BUN (Urea Nitrogen) 17 mg/dL (8.4-25.7); Bilirubin, Total 0.8 mg/dL (0.2-1.2); CK (CPK) 46 U/L (30-200); Calc. Creatinine Clearance 0 mL/min (70-130); Calcium 8.8 mg/dL (7.8-10.44); Carbon Dioxide 16 mmol/L (23-31); Chloride 109 mmol/L (98-107); Estimated GFR 39; Globulin 4.2 g/dL (2.4-3.5); Glucose 214 mg/dL (83-110); Lipase 40 U/L (8-78); Magnesium 1.8 mg/dL (1.6-2.6); Potassium 4.1 mmol/L (3.5-5.1); Protein, Total 7.5 g/dL (5.8-8.1); Sodium 139 mmol/L (136-145)
[2024-01-12 14:21] LABS: Troponin I 0.037 ng/mL (< 0.028)
[2024-01-12] MEDS ORDERED: Acetaminophen 650 MG Suppository PR PRN (14:45)
[2024-01-12] MEDS ORDERED: Ondansetron PF 4 MG/2 ML Vial IVP PRN (14:45)
[2024-01-12] MEDS ORDERED: Dextrose 50% Abboject 50 ML SYRINGE SLOW IVP PRN (14:56)
[2024-01-12] MEDS ORDERED: Insulin Lispro 100 UNIT/ML 10 ML VIAL SC PRN ×2 (14:56)
[2024-01-12] MEDS ORDERED: Glucagon 1 MG/ML KIT IM PRN (14:56)
[2024-01-12] MEDS ORDERED: Dextrose 5% in Water 1,000 ML IV PRN (14:56)
[2024-01-12 14:59] LABS: Actual Bicarbonate (HCO3a) 19.2 mEq/L (22-28); Analyzer IN Cardio ER; Base Excess (BEa) -4.7 mEq/L (-2.0 to +3.0); CO2 Tension 31.4 mmHg (35.0-45.0); Calcium, Ionized (arterial) 1.06 mmol/L (1.12-1.30); Carboxyhemoglobin (COHb) 0.5 gm% (0.0-3.0); Hematocrit-ABG 31 % (42.0-52.0); Hemoglobin (Hb) 10.7 g/dL (14.0-18.0); pH, Arterial 7.404 (7.35-7.45)
[2024-01-12 15:26] LABS: O2 Tension (PaO2), arterial 28.9 mmHg (> 60.0)
[2024-01-12 15:51] LABS: Actual Bicarbonate (HCO3v) 19.1 mEq/L (22-28); Analyzer IN Cardio ER; Base Excess -3.8 mEq/L (-2.0 to +3.0); Calcium, Ionized (venous) 1.03 mmol/L (1.16-1.32); Chloride (VBG) 109 mmol/L (98-106); Hematocrit-VBG 34 % (42.0-52.0); Hemoglobin (Hb) 11.7 g/dL (12.6-17.4); Potassium (VBG) 3.59 mmol/L (3.70-5.30); Sodium 138 mmol/L (133-146)
[2024-01-12] MEDS: Sodium Chloride 0.9% 1,000 ML IV SCH (16:31)
[2024-01-12] MEDS ORDERED: Metoprolol Tartrate 5 MG (5 mL) VIAL IVP PRN (17:40)
[2024-01-12 19:03] LABS: Troponin I 0.063 ng/mL (< 0.028)
[2024-01-12 19:04] LABS: Lactic Acid 3.07 mmol/L (0.5-2.2)
[2024-01-12] MEDS: Cefepime 2 GM in Sodium Chloride 0.9% 100 ML IVPB SCH (21:50)
[2024-01-13] MEDS ORDERED: Vancomycin 1.25 GM in Sodium Chloride 0.9% 250 ML 250 ML IVPB SCH (01:00)
[2024-01-13] MEDS: Vancomycin HCl 750 MG in Sodium Chloride 0.9% 250 ML 250 ML IVPB SCH (02:55)
[2024-01-13 07:04] LABS: Anion Gap 14 mmol/L (10-20); BUN (Urea Nitrogen) 17 mg/dL (8.4-25.7); Calc. Creatinine Clearance 38 mL/min (70-130); Calcium 8.2 mg/dL (7.8-10.44); Carbon Dioxide 19 mmol/L (23-31); Chloride 112 mmol/L (98-107); Estimated GFR 47; Glucose 126 mg/dL (83-110); Potassium 3.7 mmol/L (3.5-5.1); Sodium 141 mmol/L (136-145)
[2024-01-13 07:11] LABS: Vancomycin, Random 7.6 ug/mL (See Comment)
[2024-01-13 07:39] LABS: Hemoglobin 11.5 g/dL (14.0-18.0); Mean Corpuscular HGB CONC 32.9 g/dL (32.0-36.0); Mean Corpuscular Hemoglobin 30.1 pg (27.0-31.0); Mean Corpuscular Volume 91.6 fL (78.0-98.0); Mean Platelet Volume 10.6 fL (7.4-10.4); Platelet Count 124 10x3/uL (130-400); RBC Distribution Width 13.4 % (11.5-14.5); Red Blood Cell (RBC) Count 3.82 mill/uL (4.70-6.10)
[2024-01-13] MEDS: Lactated Ringer's 1,000 ML IV SCH (08:23)
[2024-01-13] MEDS: Tamsulosin HCl 0.4 MG CAP PO SCH (08:23)
[2024-01-13] MEDS: Enoxaparin 40 MG (0.4 mL) SYRINGE SC SCH (08:23)
[2024-01-13 08:46] LABS: Band 22 % (5-11); Burr Cells SLIGHT = 2-5 cells HPF (0-1); Lymphocytes 1 % (21-51); Monocytes 3 % (0-10); Neutrophil 74 % (42-75); Platelet Adequacy Comment Platelets Decreased
[2024-01-13] MEDS ORDERED: Darunavir/Cobicistat [Prezcobix 800 Mg-150 Mg Tablet] PO SCH (09:00)
[2024-01-13 09:30] LABS: Lactic Acid 1.38 mmol/L (0.5-2.2)
[2024-01-13] MEDS: Vancomycin 1 GM in Premix 1 BAG IVPB SCH (11:55)
[2024-01-13] MEDS ORDERED: cefTRIAXone\\ROCEPHIN 2 GM in Sodium Chloride 0.9% 100 ML IVPB SCH (12:00)
[2024-01-13] MEDS ORDERED: Vancomycin 1 GM in Premix 1 BAG IVPB SCH (13:00)
[2024-01-13] MEDS: Acetaminophen 325 MG TAB PO PRN (21:49)
[2024-01-14 05:54] LABS: Anion Gap 9 mmol/L (10-20); BUN (Urea Nitrogen) 20 mg/dL (8.4-25.7); Calc. Creatinine Clearance 39 mL/min (70-130); Calcium 7.9 mg/dL (7.8-10.44); Carbon Dioxide 24 mmol/L (23-31); Chloride 109 mmol/L (98-107); Estimated GFR 48; Glucose 98 mg/dL (83-110); Potassium 3.6 mmol/L (3.5-5.1); Sodium 138 mmol/L (136-145)
[2024-01-14 05:55] LABS: Hematocrit 29.1 % (42.0-52.0); Hemoglobin 9.8 g/dL (14.0-18.0); Mean Corpuscular HGB CONC 33.7 g/dL (32.0-36.0); Mean Corpuscular Hemoglobin 30.2 pg (27.0-31.0); Mean Corpuscular Volume 89.8 fL (78.0-98.0); Mean Platelet Volume 10.7 fL (7.4-10.4); Platelet Count 112 10x3/uL (130-400); RBC Distribution Width 13.5 % (11.5-14.5); Red Blood Cell (RBC) Count 3.24 mill/uL (4.70-6.10)
[2024-01-14 06:44] LABS: Anisocytosis SLIGHT = 6-15 cells HPF (0-5); Band 13 % (5-11); Eosinophils 1 % (0-10); Hypochromia SLIGHT = 6-15 cells HPF (0-5); Lymphocytes 3 % (21-51); Microcytosis SLIGHT = 6-15 cells HPF (0-5); Neutrophil 82 % (42-75); Ovalocytes SLIGHT = 2-5 cells HPF (0-1); Platelet Adequacy Comment Platelets Decreased; Polychromasia SLIGHT = 2-3 cells HPF (0-2); Tear Drops SLIGHT = 2-5 cells HPF (0-1)
[2024-01-14] MEDS: Aspirin 81 mg Enteric Coated Tablet PO SCH (13:02)
[2024-01-14 16:12] LABS: %CD4 (Helper/Inducer) 4.2 % (30.8-58.5); Absolute CD4 38 /uL (359-1519); Lymphocytes/Gated Cell Count 0.9 x10E3/uL (0.7-3.1); Total Lymphocyte 11 % (Not Estab.); WBC Total Count 7.8 x10E3/uL (3.4-10.8)
[2024-01-15 04:59] LABS: Anion Gap 6 mmol/L (10-20); BUN (Urea Nitrogen) 20 mg/dL (8.4-25.7); Calc. Creatinine Clearance 50 mL/min (70-130); Calcium 7.7 mg/dL (7.8-10.44); Carbon Dioxide 24 mmol/L (23-31); Chloride 108 mmol/L (98-107); Estimated GFR 64; Glucose 89 mg/dL (83-110); Potassium 3.3 mmol/L (3.5-5.1); Sodium 135 mmol/L (136-145)
[2024-01-15 05:02] LABS: Vancomycin, Random 20.6 ug/mL (See Comment)
[2024-01-15] MEDS: Vancomycin 1 GM in Premix 1 BAG IVPB SCH (08:54)
[2024-01-15] MEDS: Aspirin 81 mg Enteric Coated Tablet PO SCH (08:55)
[2024-01-15] MEDS ORDERED: Electrolyte Replacement Protocol 1 EACH FS SCH (11:15)
[2024-01-15] MEDS: Potassium Chloride 20 MEQ TAB PO SCH ×2 (11:57→21:59)
[2024-01-15] MEDS: Sulfameth/Trimethoprim DS 800-160mg TAB PO SCH (12:34)
[2024-01-15] MEDS: LevoFLOXacin 750 mg/D5W 750 MG in Premix 1 BAG IVPB SCH (12:34)
[2024-01-15 17:04] LABS: Magnesium 1.5 mg/dL (1.6-2.6); Potassium 3.2 mmol/L (3.5-5.1)
[2024-01-15] MEDS: Magnesium 2 GM/50 ML(in water) 2 GM in Premix 1 BAG IVPB SCH (22:00)
[2024-01-15] MEDS: Atorvastatin Calcium 10 MG TAB PO SCH (22:00)
[2024-01-16 06:43] LABS: Anion Gap 6 mmol/L (10-20); BUN (Urea Nitrogen) 17 mg/dL (8.4-25.7); Calc. Creatinine Clearance 46 mL/min (70-130); Carbon Dioxide 23 mmol/L (23-31); Chloride 107 mmol/L (98-107); Estimated GFR 58; Glucose 92 mg/dL (83-110); Magnesium 1.9 mg/dL (1.6-2.6); Potassium 3.8 mmol/L (3.5-5.1); Sodium 132 mmol/L (136-145)
[2024-01-16] MEDS: Sulfameth/Trimethoprim DS 800-160mg TAB PO SCH (09:17)
[2024-01-16] MEDS: Ezetimibe 10 MG TAB PO SCH (09:18)
[2024-01-16] MEDS: Magnesium 2 GM/50 ML(in water) 2 GM in Premix 1 BAG IVPB SCH (09:22)
[2024-01-16 12:04] VITALS: BP 113/72; TEMP 97.5
[2024-01-16] MEDS: Ondansetron ODT 4 MG TAB PO PRN (16:24)
[2024-01-18] MEDS ORDERED: LevoFLOXacin 750 mg/D5W 750 MG in Premix 1 BAG IVPB SCH (12:00)
== END 2024-01-16 17:05 | DRG 871 ==
LOC: ERS 11:55 → T4-B 15:53 → 2SE 01-13 01:06
PROVIDERS: ADMIT Student in an Organized Health Care Education/Training Program; ATTEND Internal Medicine
PROC: 4A033R1 Measurement of Arterial Saturation, Peripheral, Percutaneous Approach (ICD-10-PCS; principal; 2024-01-12)
PROC: 3E03329 Introduction of Other Anti-infective into Peripheral Vein, Percutaneous Approach (ICD-10-PCS; 2024-01-12)
DX: A41.9 Sepsis, unspecified organism (principal); G93.41 Metabolic encephalopathy; E87.1 Hypo-osmolality and hyponatremia; N39.0 Urinary tract infection, site not specified; N17.9 Acute kidney failure, unspecified; E87.20 Acidosis, unspecified; I24.89 Other forms of acute ischemic heart disease; R65.20 Severe sepsis without septic shock; E11.9 Type 2 diabetes mellitus without complications; I10 Essential (primary) hypertension; E78.5 Hyperlipidemia, unspecified; N18.9 Chronic kidney disease, unspecified; E11.22 Type 2 diabetes mellitus with diabetic chronic kidney disease; I12.9 Hypertensive chronic kidney disease with stage 1 through stage 4 chronic kidney disease, or unspecified chronic kidney disease; D64.9 Anemia, unspecified; N18.30 Chronic kidney disease, stage 3 unspecified; E87.6 Hypokalemia; E83.42 Hypomagnesemia; R53.81 Other malaise; E88.09 Other disorders of plasma-protein metabolism, not elsewhere classified; Z79.899 Other long term (current) drug therapy; Z21 Asymptomatic human immunodeficiency virus [HIV] infection status
CPT/HCPCS: 36415; 36416; 51702; 71045; 76770; 80048; 80053; 80202; 81001; 82550; 82805; 83605; 83690; 83735; 83880; 84145; 84443; 84484; 85025; 86361; 87040; 87086; 93005; 93306; 96374; 96375; J0692; J0696; J1650; J1885; J1956; J3370; J3370-JW; J3475; J7030; J7050; J7120; Q0162

== ENCOUNTER 2024-01-19 19:26 | Inpatient (IN) | payer OTHER, MEDICAID ==
[2024-01-19] MEDS ORDERED: Dextrose 10% in Water 250 ML ONE ×2 (20:03→21:28)
[2024-01-19 20:42] LABS: Hematocrit 26.2 % (42.0-52.0); Hemoglobin 9.2 g/dL (14.0-18.0); Mean Corpuscular HGB CONC 35.1 g/dL (32.0-36.0); Mean Corpuscular Hemoglobin 30.5 pg (27.0-31.0); Mean Corpuscular Volume 86.8 fL (78.0-98.0); Mean Platelet Volume 10.5 fL (7.4-10.4); Platelet Count 181 10x3/uL (130-400); RBC Distribution Width 13.8 % (11.5-14.5); Red Blood Cell (RBC) Count 3.02 mill/uL (4.70-6.10)
[2024-01-19 20:59] LABS: ALT (SGPT) 17 U/L (8-55); AST (SGOT) 35 U/L (5-34); Albumin 2.8 g/dL (3.4-4.8); Alkaline Phosphatase 34 U/L (40-110); Anion Gap 12 mmol/L (10-20); BUN (Urea Nitrogen) 16 mg/dL (8.4-25.7); Bilirubin, Total 0.4 mg/dL (0.2-1.2); Calc. Creatinine Clearance 0 mL/min (70-130); Calcium 8.7 mg/dL (7.8-10.44); Carbon Dioxide 22 mmol/L (23-31); Chloride 103 mmol/L (98-107); Estimated GFR 43; Globulin 4.1 g/dL (2.4-3.5); Glucose 233 mg/dL (83-110); Protein, Total 6.9 g/dL (5.8-8.1); Sodium 133 mmol/L (136-145)
[2024-01-19 21:03] LABS: Band 4 % (5-11); Burr Cells SLIGHT = 2-5 cells HPF (0-1); Large Platelets 9.9 % (0-5); Lymphocytes 10 % (21-51); Monocytes 6 % (0-10); Neutrophil 78 % (42-75); Platelet Adequacy Comment Platelets Normal; Reactive Lymphocytes 2 % (0-10); Schistocytes SLIGHT = 2-5 cells HPF (0-1); Smudge Cells 11.9 %
[2024-01-19] MEDS ORDERED: Acetaminophen 650 MG Suppository PR PRN (22:11)
[2024-01-19] MEDS ORDERED: Ondansetron ODT 4 MG TAB PO PRN (22:11)
[2024-01-19] MEDS ORDERED: Dextrose 5% in Water 1,000 ML IV PRN (22:11)
[2024-01-19] MEDS ORDERED: Ondansetron PF 4 MG/2 ML Vial IVP PRN (22:11)
[2024-01-20] MEDS: Vancomycin (BATCH) 1.5 GM in Premix 1 BAG IVPB SCH (00:36)
[2024-01-20] MEDS: cefTRIAXone\\ROCEPHIN 1 GM in Sodium Chloride 0.9% 100 ML IVPB SCH (00:45)
[2024-01-20] MEDS: Dextrose 10% in Water 1,000 ML IV SCH (00:47)
[2024-01-20] MEDS: Azithromycin 500 MG in Sodium Chloride 0.9% 250 ML 250 ML IVPB SCH (01:48)
[2024-01-20] MEDS: Glucagon 1 MG/ML KIT IM PRN (02:39)
[2024-01-20 06:47] LABS: #Basophils Less than 0.03 10x3/uL (0.0-0.2); %Basophils 0.2 % (0.0-1.0); %Lymphocytes 6.9 % (21.0-51.0); %Monocytes 8.4 % (0.0-10.0); %Neutrophils 81.8 % (42.0-75.0); Hematocrit 22.8 % (42.0-52.0); Hemoglobin 8.1 g/dL (14.0-18.0); Mean Corpuscular HGB CONC 35.5 g/dL (32.0-36.0); Mean Corpuscular Hemoglobin 30.7 pg (27.0-31.0); Mean Corpuscular Volume 86.4 fL (78.0-98.0); Mean Platelet Volume 10.2 fL (7.4-10.4); Platelet Count 152 10x3/uL (130-400); RBC Distribution Width 13.9 % (11.5-14.5); Red Blood Cell (RBC) Count 2.64 mill/uL (4.70-6.10)
[2024-01-20 07:19] LABS: ALT (SGPT) 13 U/L (8-55); AST (SGOT) 23 U/L (5-34); Albumin 2.3 g/dL (3.4-4.8); Alkaline Phosphatase 29 U/L (40-110); Anion Gap 7 mmol/L (10-20); BUN (Urea Nitrogen) 14 mg/dL (8.4-25.7); Bilirubin, Total 0.3 mg/dL (0.2-1.2); Calc. Creatinine Clearance 42 mL/min (70-130); Calcium 7.9 mg/dL (7.8-10.44); Carbon Dioxide 22 mmol/L (23-31); Chloride 104 mmol/L (98-107); Estimated GFR 51; Globulin 3.1 g/dL (2.4-3.5); Glucose 44 mg/dL (83-110); Potassium 4.1 mmol/L (3.5-5.1); Protein, Total 5.4 g/dL (5.8-8.1); Sodium 129 mmol/L (136-145)
[2024-01-20] MEDS ORDERED: Darunavir/Cobicistat [Prezcobix 800 Mg-150 Mg Tablet] PO SCH (09:00)
[2024-01-20] MEDS: Dextrose 50% Abboject 50 ML SYRINGE SLOW IVP PRN (09:18)
[2024-01-20] MEDS: FLU (Fluad Triv) TS24-25 (65UP)/MF59C/PF 45 MCG/0.5 ML Syringe IM ONE (09:19)
[2024-01-20] MEDS: Heparin 5,000 UNITS/ML VIAL SC SCH (09:20)
[2024-01-20] MEDS: Aspirin 81 mg Enteric Coated Tablet PO SCH (09:20)
[2024-01-20] MEDS: Tamsulosin HCl 0.4 MG CAP PO SCH (09:37)
[2024-01-20] MEDS: Octreotide Acetate 100 MCG/ML VIAL SC SCH (09:37)
[2024-01-20] MEDS: Octreotide Acetate 1,250 MCG in Sodium Chloride 0.9% 250 ML 250 ML IVPB SCH (13:43)
[2024-01-20] MEDS: Atorvastatin Calcium 10 MG TAB PO SCH (20:09)
[2024-01-21 06:00] LABS: Hematocrit 24.9 % (42.0-52.0); Hemoglobin 8.7 g/dL (14.0-18.0); Mean Corpuscular HGB CONC 34.9 g/dL (32.0-36.0); Mean Corpuscular Hemoglobin 29.8 pg (27.0-31.0); Mean Corpuscular Volume 85.3 fL (78.0-98.0); Mean Platelet Volume 10.1 fL (7.4-10.4); Platelet Count 167 10x3/uL (130-400); RBC Distribution Width 13.7 % (11.5-14.5); Red Blood Cell (RBC) Count 2.92 mill/uL (4.70-6.10)
[2024-01-21 06:11] LABS: Hemoglobin A1c 6.1 % (4.0-6.0)
[2024-01-21 06:14] LABS: Anion Gap 8 mmol/L (10-20); BUN (Urea Nitrogen) 9 mg/dL (8.4-25.7); Calc. Creatinine Clearance 41 mL/min (70-130); Calcium 8.1 mg/dL (7.8-10.44); Carbon Dioxide 23 mmol/L (23-31); Chloride 103 mmol/L (98-107); Estimated GFR 49; Glucose 253 mg/dL (83-110); Potassium 4.2 mmol/L (3.5-5.1); Sodium 130 mmol/L (136-145)
[2024-01-21 06:15] LABS: CRP,High Sensitivity (Inhouse) 0.54 mg/dL (< or = 0.5)
[2024-01-21 07:32] LABS: Anisocytosis MODERATE=16-30 cells HPF (0-5); Band 3 % (5-11); Lymphocytes 4 % (21-51); Macrocytosis SLIGHT = 6-15 cells HPF (0-5); Monocytes 5 % (0-10); Neutrophil 85 % (42-75); Platelet Adequacy Comment Platelets Normal
[2024-01-21] MEDS ORDERED: Insulin Regular, Human 100 UNIT/ML 10 ML VIAL SC PRN (08:13)
[2024-01-21] MEDS: Amlodipine 10 MG TAB PO SCH (09:40)
[2024-01-21] MEDS: Insulin Glargine 30 UNITS/0.3 ML VIAL SC SCH (09:40)
[2024-01-21] MEDS: Sulfameth/Trimethoprim DS 800-160mg TAB PO SCH (09:40)
[2024-01-21] MEDS: Dextrose 50% Abboject 50 ML SYRINGE SLOW IVP SCH (20:55)
[2024-01-21] MEDS: Dextrose 50% Abboject 50 ML SYRINGE ONE (20:56)
[2024-01-21] MEDS: Dextrose 10% in Water 1,000 ML IV SCH (22:06)
[2024-01-22 07:18] LABS: Anion Gap 10 mmol/L (10-20); BUN (Urea Nitrogen) 8 mg/dL (8.4-25.7); Calc. Creatinine Clearance 44 mL/min (70-130); Calcium 8.5 mg/dL (7.8-10.44); Carbon Dioxide 21 mmol/L (23-31); Chloride 108 mmol/L (98-107); Estimated GFR 55; Glucose 67 mg/dL (83-110); Magnesium 1.6 mg/dL (1.6-2.6); Potassium 4.1 mmol/L (3.5-5.1); Sodium 135 mmol/L (136-145)
[2024-01-22 07:22] LABS: Hematocrit 26.7 % (42.0-52.0); Hemoglobin 8.8 g/dL (14.0-18.0); Mean Corpuscular Hemoglobin 29.9 pg (27.0-31.0); Mean Corpuscular Volume 90.8 fL (78.0-98.0); Platelet Count 175 10x3/uL (130-400); RBC Distribution Width 14.5 % (11.5-14.5); Red Blood Cell (RBC) Count 2.94 mill/uL (4.70-6.10)
[2024-01-22 07:48] LABS: Band 2 % (5-11); Elliptocytes MODERATE= 6-15 cells HPF (0-1); Eosinophils 1 % (0-10); Lymphocytes 10 % (21-51); Monocytes 5 % (0-10); Neutrophil 81 % (42-75); Platelet Adequacy Comment Platelets Normal; Poikilocytosis SLIGHT = 6-15 cells HPF (0-5); Reactive Lymphocytes 1 % (0-10)
[2024-01-22] MEDS: Lorazepam 0.5 MG TAB PO PRN (14:52)
[2024-01-22 14:58] VITALS: BMI 23.1
[2024-01-22] MEDS: Acetaminophen 325 MG TAB PO PRN (20:18)
[2024-01-23 05:34] LABS: #Basophils Less than 0.03 10x3/uL (0.0-0.2); %Basophils 0.4 % (0.0-1.0); %Eosinophils 6.1 % (0.0-10.0); %Lymphocytes 23.3 % (21.0-51.0); %Monocytes 15.2 % (0.0-10.0); %Neutrophils 54.6 % (42.0-75.0); Hematocrit 26.8 % (42.0-52.0); Hemoglobin 9.3 g/dL (14.0-18.0); Mean Corpuscular HGB CONC 34.7 g/dL (32.0-36.0); Mean Corpuscular Volume 86.5 fL (78.0-98.0); Mean Platelet Volume 9.6 fL (7.4-10.4); Platelet Count 189 10x3/uL (130-400); RBC Distribution Width 14.2 % (11.5-14.5)
[2024-01-23 05:51] LABS: Anion Gap 11 mmol/L (10-20); BUN (Urea Nitrogen) 10 mg/dL (8.4-25.7); Calc. Creatinine Clearance 42 mL/min (70-130); Calcium 8.5 mg/dL (7.8-10.44); Carbon Dioxide 24 mmol/L (23-31); Chloride 103 mmol/L (98-107); Estimated GFR 51; Glucose 124 mg/dL (83-110); Potassium 3.9 mmol/L (3.5-5.1); Sodium 134 mmol/L (136-145)
[2024-01-25 06:10] LABS: #Basophils Less than 0.03 10x3/uL (0.0-0.2); %Basophils 0.4 % (0.0-1.0); %Eosinophils 7.3 % (0.0-10.0); %Lymphocytes 15.9 % (21.0-51.0); %Monocytes 15.9 % (0.0-10.0); %Neutrophils 58.9 % (42.0-75.0); Hematocrit 24.6 % (42.0-52.0); Hemoglobin 8.4 g/dL (14.0-18.0); Mean Corpuscular HGB CONC 34.1 g/dL (32.0-36.0); Mean Corpuscular Hemoglobin 30.5 pg (27.0-31.0); Mean Corpuscular Volume 89.5 fL (78.0-98.0); Mean Platelet Volume 9.8 fL (7.4-10.4); Platelet Count 149 10x3/uL (130-400); RBC Distribution Width 14.2 % (11.5-14.5); Red Blood Cell (RBC) Count 2.75 mill/uL (4.70-6.10)
[2024-01-25 06:19] LABS: Magnesium 1.6 mg/dL (1.6-2.6)
[2024-01-25 06:31] LABS: Anion Gap 9 mmol/L (10-20); BUN (Urea Nitrogen) 11 mg/dL (8.4-25.7); Calc. Creatinine Clearance 50 mL/min (70-130); Calcium 7.9 mg/dL (7.8-10.44); Carbon Dioxide 24 mmol/L (23-31); Chloride 105 mmol/L (98-107); Estimated GFR 65; Glucose 71 mg/dL (83-110); Potassium 3.9 mmol/L (3.5-5.1); Sodium 134 mmol/L (136-145)
[2024-01-26 04:36] LABS: #Basophils Less than 0.03 10x3/uL (0.0-0.2); %Basophils 0.4 % (0.0-1.0); %Eosinophils 3.9 % (0.0-10.0); %Lymphocytes 20.8 % (21.0-51.0); %Monocytes 12.2 % (0.0-10.0); %Neutrophils 62.3 % (42.0-75.0); Mean Corpuscular HGB CONC 33.3 g/dL (32.0-36.0); Mean Corpuscular Hemoglobin 29.9 pg (27.0-31.0); Mean Corpuscular Volume 89.6 fL (78.0-98.0); Mean Platelet Volume 10.3 fL (7.4-10.4); Platelet Count 136 10x3/uL (130-400); RBC Distribution Width 14.5 % (11.5-14.5); Red Blood Cell (RBC) Count 2.68 mill/uL (4.70-6.10)
[2024-01-26 04:45] LABS: Anion Gap 8 mmol/L (10-20); BUN (Urea Nitrogen) 13 mg/dL (8.4-25.7); Calc. Creatinine Clearance 44 mL/min (70-130); Calcium 7.9 mg/dL (7.8-10.44); Carbon Dioxide 25 mmol/L (23-31); Chloride 106 mmol/L (98-107); Estimated GFR 56; Glucose 74 mg/dL (83-110); Potassium 4.1 mmol/L (3.5-5.1); Sodium 135 mmol/L (136-145)
[2024-01-27 05:13] LABS: Anion Gap 8 mmol/L (10-20); BUN (Urea Nitrogen) 16 mg/dL (8.4-25.7); Calc. Creatinine Clearance 47 mL/min (70-130); Carbon Dioxide 24 mmol/L (23-31); Chloride 106 mmol/L (98-107); Estimated GFR 60; Glucose 97 mg/dL (83-110); Potassium 4.1 mmol/L (3.5-5.1); Sodium 134 mmol/L (136-145)
[2024-01-27 05:19] LABS: #Basophils Less than 0.03 10x3/uL (0.0-0.2); %Basophils 0.3 % (0.0-1.0); %Eosinophils 3.8 % (0.0-10.0); %Lymphocytes 24.2 % (21.0-51.0); %Monocytes 15.9 % (0.0-10.0); %Neutrophils 55.5 % (42.0-75.0); Hematocrit 25.2 % (42.0-52.0); Hemoglobin 8.8 g/dL (14.0-18.0); Mean Corpuscular HGB CONC 34.9 g/dL (32.0-36.0); Mean Corpuscular Hemoglobin 31.3 pg (27.0-31.0); Mean Corpuscular Volume 89.7 fL (78.0-98.0); Mean Platelet Volume 10.1 fL (7.4-10.4); Platelet Count 140 10x3/uL (130-400); RBC Distribution Width 14.3 % (11.5-14.5); Red Blood Cell (RBC) Count 2.81 mill/uL (4.70-6.10)
[2024-01-27 18:03] VITALS: BP 118/57; TEMP 97.8
== END 2024-01-27 18:01 | DRG 637 ==
LOC: SUATTDRO 19:26 → ERS 19:26 → T4-A 22:08 → IMCU/EMU 01-20 05:30 → OBSVTOIN 01-20 15:35 → IMCU/EMU 01-21 18:39 → T4-B 01-22 16:12
PROVIDERS: ADMIT Family Medicine; ATTEND Internal Medicine
DX: E11.649 Type 2 diabetes mellitus with hypoglycemia without coma (principal); G93.41 Metabolic encephalopathy; J18.9 Pneumonia, unspecified organism; B20 Human immunodeficiency virus [HIV] disease; E87.1 Hypo-osmolality and hyponatremia; N17.9 Acute kidney failure, unspecified; E78.5 Hyperlipidemia, unspecified; E78.00 Pure hypercholesterolemia, unspecified; N40.0 Benign prostatic hyperplasia without lower urinary tract symptoms; I12.9 Hypertensive chronic kidney disease with stage 1 through stage 4 chronic kidney disease, or unspecified chronic kidney disease; Z79.84 Long term (current) use of oral hypoglycemic drugs; Z91.148 Patient's other noncompliance with medication regimen for other reason; N18.30 Chronic kidney disease, stage 3 unspecified; T38.3X5A Adverse effect of insulin and oral hypoglycemic [antidiabetic] drugs, initial encounter; Z79.82 Long term (current) use of aspirin; Z79.899 Other long term (current) drug therapy
CPT/HCPCS: 36415; 36416; 70450; 71045; 71250; 80048; 80053; 82010; 83036; 83735; 84145; 84439; 84443; 84481; 85025; 86141; 96365; 96367; 96372; 96374; 96375; 96376; G0378; J0456; J0696; J1611; J1644; J1815; J2354; J3370; J7050; J7999

== ENCOUNTER 2024-03-27 22:09 | Inpatient (IN) | payer OTHER, MEDICAID ==
[2024-03-27] MEDS ORDERED: Cefepime 2 GM VIAL ONE (23:05)
[2024-03-27] MEDS ORDERED: Sodium Chloride 0.9% 100 ML ONE (23:05)
[2024-03-27 23:14] LABS: #Basophils Less than 0.03 10x3/uL (0.0-0.2); #Eosinophils Less than 0.03 10x3/uL (0.0-0.7); %Basophils 0.4 % (0.0-1.0); %Lymphocytes 26.4 % (21.0-51.0); %Monocytes 11.2 % (0.0-10.0); %Neutrophils 61.6 % (42.0-75.0); Hematocrit 21.8 % (42.0-52.0); Hemoglobin 7.5 g/dL (14.0-18.0); Mean Corpuscular HGB CONC 34.4 g/dL (32.0-36.0); Mean Corpuscular Hemoglobin 33.9 pg (27.0-31.0); Mean Corpuscular Volume 98.6 fL (78.0-98.0); Platelet Count 162 10x3/uL (130-400); Red Blood Cell (RBC) Count 2.21 mill/uL (4.70-6.10)
[2024-03-27 23:35] LABS: ALT (SGPT) 29 U/L (8-55); AST (SGOT) 28 U/L (5-34); Albumin 3.1 g/dL (3.4-4.8); Alkaline Phosphatase 84 U/L (40-110); Anion Gap 12 mmol/L (10-20); BUN (Urea Nitrogen) 17 mg/dL (8.4-25.7); Bilirubin, Total 0.4 mg/dL (0.2-1.2); Calc. Creatinine Clearance 0 mL/min (70-130); Calcium 8.5 mg/dL (7.8-10.44); Carbon Dioxide 21 mmol/L (23-31); Chloride 107 mmol/L (98-107); Estimated GFR 45; Globulin 4.5 g/dL (2.4-3.5); Glucose 134 mg/dL (83-110); Lipase 11 U/L (8-78); Protein, Total 7.6 g/dL (5.8-8.1); Sodium 135 mmol/L (136-145)
[2024-03-27 23:39] LABS: Troponin I Less than 0.010 ng/mL (< 0.028)
[2024-03-28] MEDS ORDERED: Oseltamivir 75 MG CAP ONE (01:23)
[2024-03-28] MEDS ORDERED: Ondansetron PF 4 MG/2 ML Vial IVP PRN (02:14)
[2024-03-28] MEDS ORDERED: Dextrose 50% Abboject 50 ML SYRINGE SLOW IVP PRN (02:21)
[2024-03-28] MEDS ORDERED: Dextrose 5% in Water 1,000 ML IV PRN (02:21)
[2024-03-28] MEDS ORDERED: Insulin Lispro 100 UNIT/ML 10 ML VIAL SC PRN ×2 (02:21)
[2024-03-28] MEDS ORDERED: Glucagon 1 MG/ML KIT IM PRN (02:21)
[2024-03-28] MEDS ORDERED: Benzonatate 100 MG CAP PO PRN (02:41)
[2024-03-28] MEDS ORDERED: Sodium Chloride 0.9% 500 ML IV SCH (02:45)
[2024-03-28] MEDS ORDERED: Morphine 2 MG/ML VIAL ONE (03:09)
[2024-03-28 03:26] LABS: Bacteria/HPF None Seen HPF (None Seen); Bilirubin Negative (Negative); Blood, Urine Negative (Negative); CAUTI Indications for Culture Fever or rigors; Clarity Turbid (Clear); Glucose, Urine (Dipstick) Normal (Negative); Ketone, Urine Negative (Negative); Leukocyte 500 Leu/uL (Negative); Nitrite Negative (Negative); Protein, Urine (Dipstick) 10 mg/dL (Neg-Trace); RBC/HPF 0-3 HPF (0-3); Specific Gravity, Urine 1.013 (1.002-1.036); Urobilinogen Normal mg/dL (Less than 2)
[2024-03-28 03:27] LABS: Urine Culture Reflex No No
[2024-03-28] MEDS: Morphine 2 MG/ML VIAL SLOW IVP SCH (03:31)
[2024-03-28] MEDS: Vancomycin (BATCH) 2.5 GM in Premix 1 BAG IVPB SCH (03:41)
[2024-03-28 04:45] LABS: #Basophils Less than 0.03 10x3/uL (0.0-0.2); #Eosinophils Less than 0.03 10x3/uL (0.0-0.7); %Lymphocytes 12.1 % (21.0-51.0); %Monocytes 6.4 % (0.0-10.0); %Neutrophils 80.9 % (42.0-75.0); Hematocrit 24.4 % (42.0-52.0); Hemoglobin 8.3 g/dL (14.0-18.0); Mean Corpuscular Hemoglobin 34.3 pg (27.0-31.0); Mean Corpuscular Volume 100.8 fL (78.0-98.0); Mean Platelet Volume 9.5 fL (7.4-10.4); Platelet Count 172 10x3/uL (130-400); RBC Distribution Width 18.2 % (11.5-14.5); Red Blood Cell (RBC) Count 2.42 mill/uL (4.70-6.10)
[2024-03-28 05:15] LABS: Anion Gap 15 mmol/L (10-20); BUN (Urea Nitrogen) 18 mg/dL (8.4-25.7); Calc. Creatinine Clearance 0 mL/min (70-130); Calcium 8.5 mg/dL (7.8-10.44); Carbon Dioxide 19 mmol/L (23-31); Chloride 107 mmol/L (98-107); Estimated GFR 46; Glucose 171 mg/dL (83-110); Iron 14 ug/dL (65-175); Iron Binding Capacity, Total 233 mcg/dL (261-462); Potassium 5.2 mmol/L (3.5-5.1); Sodium 136 mmol/L (136-145)
[2024-03-28 05:25] LABS: Iron 15 ug/dL (65-175); Iron Binding Capacity, Total 231 mcg/dL (261-462)
[2024-03-28 07:17] VITALS: BMI 32.1
[2024-03-28] MEDS ORDERED: DARUNAVIR PO SCH (09:00)
[2024-03-28] MEDS ORDERED: (Dolutegravir Sodium [Tivicay] 50 MG Tablet) PO SCH (09:00)
[2024-03-28] MEDS ORDERED: COBICISTAT PO SCH (09:00)
[2024-03-28] MEDS: Tamsulosin HCl 0.4 MG CAP PO SCH (11:14)
[2024-03-28] MEDS: Amlodipine 10 MG TAB PO SCH (11:14)
[2024-03-28] MEDS: guaiFENesin/DM ER PO SCH (11:14)
[2024-03-28] MEDS: Aspirin 81 mg Enteric Coated Tablet PO SCH (11:14)
[2024-03-28] MEDS: Ferrous Sulfate 325 MG TAB PO SCH (11:25)
[2024-03-28] MEDS: Ezetimibe 10 MG TAB PO SCH (11:27)
[2024-03-28] MEDS: Acetaminophen 325 MG TAB PO PRN (12:14)
[2024-03-28] MEDS ORDERED: Oseltamivir 75 MG CAP PO SCH (14:00)
[2024-03-28] MEDS: Oseltamivir 6 MG/ML ORAL SUSP PO SCH (16:07)
[2024-03-28] MEDS: Cefdinir 300 MG CAP PO SCH (22:00)
[2024-03-28] MEDS: Doxycycline 100 MG CAP PO SCH (22:00)
[2024-03-28] MEDS: Atorvastatin Calcium 10 MG TAB PO SCH (22:01)
[2024-03-29] MEDS: Oseltamivir 6 MG/ML ORAL SUSP PO SCH ×2 (00:05→00:06)
[2024-03-29 05:27] LABS: #Basophils Less than 0.03 10x3/uL (0.0-0.2); %Basophils 0.5 % (0.0-1.0); %Eosinophils 11.5 % (0.0-10.0); %Lymphocytes 23.9 % (21.0-51.0); %Monocytes 7.2 % (0.0-10.0); %Neutrophils 56.7 % (42.0-75.0); Hematocrit 22.9 % (42.0-52.0); Hemoglobin 7.7 g/dL (14.0-18.0); Mean Corpuscular HGB CONC 33.6 g/dL (32.0-36.0); Mean Corpuscular Hemoglobin 34.2 pg (27.0-31.0); Mean Corpuscular Volume 101.8 fL (78.0-98.0); Mean Platelet Volume 9.3 fL (7.4-10.4); Platelet Count 144 10x3/uL (130-400); RBC Distribution Width 17.9 % (11.5-14.5); Red Blood Cell (RBC) Count 2.25 mill/uL (4.70-6.10)
[2024-03-29 05:46] LABS: Anion Gap 12 mmol/L (10-20); BUN (Urea Nitrogen) 21 mg/dL (8.4-25.7); Calc. Creatinine Clearance 49 mL/min (70-130); Calcium 8.3 mg/dL (7.8-10.44); Carbon Dioxide 19 mmol/L (23-31); Chloride 107 mmol/L (98-107); Estimated GFR 44; Glucose 74 mg/dL (83-110); Potassium 4.5 mmol/L (3.5-5.1); Sodium 133 mmol/L (136-145)
[2024-03-29] MEDS: FLU (Fluad Triv) TS24-25 (65UP)/MF59C/PF 45 MCG/0.5 ML Syringe IM ONE (08:28)
[2024-03-30 08:50] LABS: Hemoglobin 8.5 g/dL (14.0-18.0); Mean Corpuscular Hemoglobin 33.6 pg (27.0-31.0); Mean Corpuscular Volume 98.8 fL (78.0-98.0); Mean Platelet Volume 8.5 fL (7.4-10.4); Platelet Count 143 10x3/uL (130-400); RBC Distribution Width 16.9 % (11.5-14.5); Red Blood Cell (RBC) Count 2.53 mill/uL (4.70-6.10)
[2024-03-30 09:21] LABS: Anion Gap 11 mmol/L (10-20); BUN (Urea Nitrogen) 15 mg/dL (8.4-25.7); Calc. Creatinine Clearance 66 mL/min (70-130); Calcium 8.3 mg/dL (7.8-10.44); Carbon Dioxide 22 mmol/L (23-31); Chloride 104 mmol/L (98-107); Estimated GFR 63; Glucose 93 mg/dL (83-110); Potassium 4.1 mmol/L (3.5-5.1); Sodium 133 mmol/L (136-145)
[2024-03-30 10:38] LABS: Anisocytosis SLIGHT = 6-15 cells HPF (0-5); Band 5 % (5-11); Eosinophils 10 % (0-10); Large Platelets 5.9 % (0-5); Lymphocytes 23 % (21-51); Monocytes 7 % (0-10); Neutrophil 55 % (42-75); Ovalocytes SLIGHT = 2-5 cells HPF (0-1); Platelet Adequacy Comment Platelets Normal; Polychromasia SLIGHT = 2-3 cells HPF (0-2); Schistocytes SLIGHT = 2-5 cells HPF (0-1)
[2024-03-30 12:14] VITALS: BP 121/61; TEMP 98.2
== END 2024-03-30 13:00 | DRG 193 ==
LOC: ERS 22:09 → ERHOLD 03-28 01:10 → T4-B 03-28 01:29 → OBSVTOIN 03-29 09:55
PROVIDERS: ADMIT Internal Medicine; ATTEND Internal Medicine
DX: J10.00 Influenza due to other identified influenza virus with unspecified type of pneumonia (principal); J96.01 Acute respiratory failure with hypoxia; N17.9 Acute kidney failure, unspecified; B20 Human immunodeficiency virus [HIV] disease; E78.5 Hyperlipidemia, unspecified; E11.9 Type 2 diabetes mellitus without complications; N40.0 Benign prostatic hyperplasia without lower urinary tract symptoms; D64.9 Anemia, unspecified; I12.9 Hypertensive chronic kidney disease with stage 1 through stage 4 chronic kidney disease, or unspecified chronic kidney disease; N18.30 Chronic kidney disease, stage 3 unspecified; D63.1 Anemia in chronic kidney disease; Z79.899 Other long term (current) drug therapy
CPT/HCPCS: 36415; 36416; 71045; 80048; 80053; 81001; 82607; 83540; 83550; 83605; 83690; 83880; 84145; 84484; 85025; 86850; 86900; 86901; 87040; 87086; 87428; 93005; 96365; 96366; 96367; 96375; G0378; J0692; J2272; J3370